=== PATIENT | male | born 1955 | race Caucasian/White ===

== ENCOUNTER → 2016-11-04 | Day surgery (SDC) | payer BC ==
[2016-10-15 08:08] VITALS: Ht 188 cm; Wt 104.5 kg
[~2016-11-04] VITALS: Ht 188 cm; Wt 104.5 kg
[~2016-11-04] MED LIST: 500ML BSS 0.3ML EPI 1:1000PF IRRIG ONE; ACETAMINOPHEN 325 MG TAB PO PRN; AMVISC PLUS 0.8ML SYRINGE INT OCU ONE; ATROPINE SULFATE 0.1 MG/ML 5ML SYR IV PRN; BRIMONIDINE TART 0.2% OP SOLN PER DROP CHARGE ONE; BSS FLUSH ONE; CHOL100010 PO; DOXE10CA PO; ENDOCOAT 0.85ML SYRINGE INT OCU ONE; EpHEDrine SULFATE INJ 50 MG/ML AMP IV PRN; EpINEphrine INJ 1MG/ML AMP 1 MG/ML AMP ONE; GLYCOPYRROLATE INJ 0.2 MG/ML VIAL ONE; LACTATED RINGER'S 1000ML 500 ML IV SCH; LEVO-371 PO; LIDOCAINE 4% OP SOLN DROP CHARGE ONE; LIDOCAINE 4% OP SOLN DROP CHARGE OPR SCH; LIDOCAINE HCL 1% MPF 2 ML VIAL ONE; MIDAZOLAM HCL 1 MG/ML 2ML VIAL ONE; MIX: 3ML BSS AND 1ML EPI(PF) TOP ONE; MOXIFLOXACIN OPH SOLN PER DROP CHARGE ONE; POVIDONE-IODINE OP SOLN 30 ML BTL ONE; PROPARACAINE 0.5% OP SOLN PER DROP CHARGE OPR SCH; PRS5 PO; TOBRAMYCIN/DEXAMETHASONE OPH OINT PER APPLN CHARGE ONE; TRIA1SPR4 NAE; WARF-237 PO; WARF5TAB90 PEG; [UNRECOGNIZED DRUG - CODE] PO
[2016-11-04] MEDS: PHENYLEPHRINE HCL 2.5% OP SOLN PER DROP CHARGE OPR SCH ×2 (09:03→09:08)
[2016-11-04] MEDS: TROPICAMIDE 1% OP SOLN PER DROP CHARGE OPR SCH ×2 (09:04→09:09)
[2016-11-04] MEDS: CYCLOPENTOLATE HCL 1% OP SOLN PER DROP CHARGE OPR SCH ×2 (09:05→09:10)
--- NOTE | 2016-11-04 09:05 | History & Physical Bridge - SC ---
H&P Re-Evaluation Bridge Note: I have examined the patient, reviewed the History & Physical and in the interval since the performance of the History & Physical I have noted the following changes of clinical significance: No changes noted
[2016-11-04] MEDS: KETOROLAC 0.5% OP SOLN PER DROP CHARGE OPR SCH ×2 (09:06→09:11)
[2016-11-04] MEDS: MOXIFLOXACIN OPH SOLN PER DROP CHARGE OPR SCH ×2 (09:07→09:17)
[2016-11-04 09:59] VITALS: TEMP 36.3
--- NOTE | 2016-11-04 09:59 | [facility] Post Operative Brief Note ---
Immediate Operative Summary Operative Date Nov 04, 2016. Pre-Operative Diagnosis Cataract right eye Post-Operative Diagnosis same Procedure(s) Performed Right Cataract Phacoemulsification With Intraocular Lens Implant Surgeon Dr Haynes Aircraft Powertrain Repairer Surgeon(s) 0 Estimated Blood Loss 0 Findings cataract right eye Specimens 0 Complication(s) None Disposition Recovery Room / PACU
--- NOTE | 2016-11-04 09:59 | Discharge Instructions-SurgCtr ---
Discharge Instructions Visit Reason for Visit: Cataract Right Eye Discharge Discharge Diagnosis / Problem: cataract right eye Discharge Goals Goal(s): Improve function Activity Recommendations Activity Limitations: per Instructions/Follow-up section Lifting Limitations: no more than 5 pounds Anesthesia . Post Anesthesia Instructions: If you have had General Anesthesia or IV Sedation: * Do not drive today. * Resume driving when surgeon permits. * Do not make important decisions or sign legal documents today. * Call surgeon for: 1. Temperature elevations greater than 101 degrees F. 2. Uncontrollable pain. 3. Excessive bleeding. 4. Persistent nausea and vomiting. 5. Medication intolerance (nausea, vomiting or rash). * For nausea and vomiting use only clear liquids such as: tea, soda, bouillon until nausea subsides, then gradually increase diet as tolerated. * If you have any concerns or questions, call your surgeon's office. If physician is unavailable and it is an emergency, call 911 or go to the nearest emergency room. . Instructions / Follow-Up Instructions / Follow-Up ACTIVITY RECOMMENDATIONS: * Light activities * You may walk outside, read, watch television. * Mild irritation and blurred vision are common for the first few days, redness around the white part of the eye is common. MEDICATIONS: Resume previous medications unless instructed otherwise by your surgeon. Eye drops (today and tomorrow): Cipro - one drop in operative eye every 2 hours while awake Prednisolone 1% - one drop in operative eye every 2 hours while awake Ketorolac - one drop in operative eye every 2 hours while awake SPECIAL CARE INSTRUCTIONS: * If any problems or concerns, please call Dr. Haynes's office at . * Keep plastic shield taped over eye to sleep at night. * Keep plastic shield taped over eye except to administer eye drops. * Keep plastic shield on until office visit the following day. FOLLOW UP VISIT: Follow-up with Dr. Haynes in the [place] office as scheduled. If not already scheduled, please call the office at . Diet Recommendations Home Diet: resume previous diet Procedures Procedures Performed: Right Cataract Phacoemulsification With Intraocular Lens Implant Pending Studies Studies pending at discharge: no Medical Emergencies . Who to Call and When: Medical Emergencies: If at any time you feel your situation is an emergency, please call 911 immediately. . Non-Emergent Contact Non-Emergency issues call your: Creative Coordinator . . "Provider Documentation" section prepared by Julius Haynes.
--- NOTE | 2016-11-04 10:15 | Anesthesia Progress Nt - [facility] ---
Anesthesia Post Op Note Date & Time Nov 04, 2016 at 10:15 Vital Signs Pain Intensity: 0 Vital Signs Past 12 Hours Date Time Temp Pulse Resp B/P Pulse Ox O2 Delivery O2 Flow Rate FiO2 11/04/16 09:59 36.3 45 16 138/90 97 Room Air 11/04/16 08:55 36.9 45 20 138/90 95 Room Air Notes Mental Status: alert / awake / arousable, participated in evaluation Pt Amnestic to Procedure: Yes Nausea / Vomiting: adequately controlled Pain: adequately controlled Airway Patency, RR, SpO2: stable & adequate BP & HR: stable & adequate Hydration State: stable & adequate Anesthetic Complications: no major complications apparent
--- NOTE | 2016-11-04 10:17 | OPERATIVE REPORT ---
DATE OF OPERATION: 11/04/2016 PREOPERATIVE DIAGNOSIS: Cataract, right eye. POSTOPERATIVE DIAGNOSIS: Cataract, right eye. PROCEDURE: Phacoemulsification cataract extraction with intraocular lens placement, right eye. SURGEON: Dr. Haynes. COMPLICATIONS: None. ESTIMATED BLOOD LOSS: None. ANESTHESIA: Topical with sedation. OPERATION AND FINDINGS: After informed consent was obtained in the holding area the patient was wheeled back to the Operating Room where cardiac monitoring leads and oxygen by nasal cannula was administered by Anesthesia. Gentle IV sedation was given, and the patient's right eye was prepped and draped in usual sterile fashion. A wire lid speculum was placed into the right eye and the operating microscope was swung into position. Using 0.12 forceps and a Supersharp blade a paracentesis port was made 3 o'clock hours away from the 9 o'clock position of patient's right eye. 1% non-preserved Lidocaine was then injected into the anterior chamber for anesthesia. A 2.2 mm keratotome blade was then used to make a shelved clear corneal incision at the 9 o'clock position of his right eye. Amvisc was injected into the anterior chamber and a cystotome and Utrata forceps were used to perform a curvilinear capsulorrhexis. BSS on a hydrodissection cannula was used to hydrodissect the lens nucleus away from the capsular bag. The phacoemulsification handpiece was then used in a stop and chop fashion to remove the lens nucleus. The irrigation and aspiration handpiece was then used to remove the residual cortical material. Amvisc was injected into the capsular bag and anterior chamber and a Bausch \T\ Lomb MX60, 21.0 Diopter intraocular lens was injected into the capsular bag. Irrigation and aspiration handpiece was used to remove the residual viscoelastic material. The wounds were hydrated and noted to be watertight. The wire lid speculum was removed from the eye. Vigamox, Brimonidine, and TobraDex ointment were placed on the eye and it was shielded. It should be noted that at the beginning of the case, a mixture of 1 mL of nonpreserved epinephrine and 3 mL of BSS was injected into the eye to aid with pupillary dilation in this Flomax patient. EndoCoat was also used during the case to protect the cornea endothelium. DISPOSITION: The patient tolerated the procedure well and was wheeled to the post anesthesia care unit in stable condition. I attest to the content of the Intraoperative Record and any orders documented therein. Any exceptions are noted below. I attest to the content of the Intraoperative Record and any orders documented therein. Any exceptio ns are noted below.
[2016-11-04 10:20] VITALS: BP 132/86; PULSE 58; O2SAT 97
== END | disposition home or self-care (01) ==
LOC: X.SURG 08:32
PROVIDERS: ATTEND Ophthalmology
DX: H25.11 Age-related nuclear cataract, right eye (principal); N40.0 Benign prostatic hyperplasia without lower urinary tract symptoms; R73.02 Impaired glucose tolerance (oral)

== ENCOUNTER → 2018-01-26 | Outpatient (CLI) | payer OTHER ==
[~2018-01-26] MED LIST changes: -500ML BSS 0.3ML EPI 1:1000PF IRRIG ONE; -ACETAMINOPHEN 325 MG TAB PO PRN; -AMVISC PLUS 0.8ML SYRINGE INT OCU ONE; -ATROPINE SULFATE 0.1 MG/ML 5ML SYR IV PRN; -BRIMONIDINE TART 0.2% OP SOLN PER DROP CHARGE ONE; -BSS FLUSH ONE; +DOXA1TAB PO; -ENDOCOAT 0.85ML SYRINGE INT OCU ONE; -EpHEDrine SULFATE INJ 50 MG/ML AMP IV PRN; -EpINEphrine INJ 1MG/ML AMP 1 MG/ML AMP ONE; -GLYCOPYRROLATE INJ 0.2 MG/ML VIAL ONE; -LACTATED RINGER'S 1000ML 500 ML IV SCH; -LEVO-371 PO; +LEVO5TAB2 PO; -LIDOCAINE 4% OP SOLN DROP CHARGE ONE; -LIDOCAINE 4% OP SOLN DROP CHARGE OPR SCH; -LIDOCAINE HCL 1% MPF 2 ML VIAL ONE; -MIDAZOLAM HCL 1 MG/ML 2ML VIAL ONE; -MIX: 3ML BSS AND 1ML EPI(PF) TOP ONE; -MOXIFLOXACIN OPH SOLN PER DROP CHARGE ONE; -POVIDONE-IODINE OP SOLN 30 ML BTL ONE; -PROPARACAINE 0.5% OP SOLN PER DROP CHARGE OPR SCH; -TOBRAMYCIN/DEXAMETHASONE OPH OINT PER APPLN CHARGE ONE; -[UNRECOGNIZED DRUG - CODE] PO
--- NOTE | 2018-01-26 12:05 | DIAGNOSTIC IMAGING REPORT ---
LEFT LOWER EXTREMITY VENOUS DOPPLER CLINICAL HISTORY: Left lower extremity pain. History of deep venous thrombus. COMPARISON STUDY: Bilateral lower extremity venous Doppler March 03, 2012. TECHNIQUE: Sonography of the deep venous system of the left lower extremity was performed. Compression and augmentation were evaluated. FINDINGS: Note is made of nonocclusive deep venous thrombus within the left superficial femoral and popliteal veins. Thrombus was shown within these vessels on exam of March 03, 2012. These vessels are not expanded. IMPRESSION: Nonocclusive deep venous thrombus within the left superficial femoral and popliteal veins. Although age indeterminate, this thrombus is likely chronic when correlating with exam of March 03, 2012. Electronically signed by: Ang Torres M.D. 01/26/2018 12:04 PM Dictated Date/Time: 01/26/2018 12:00 PM
== END | disposition home or self-care (01) ==
LOC: C.ULTR 10:39
PROVIDERS: ATTEND Family Medicine
DX: M79.605 Pain in left leg (principal); I82.4Y2 Acute embolism and thrombosis of unspecified deep veins of left proximal lower extremity

== ENCOUNTER 2022-01-28 17:50 | Observation (INO) ==
--- NOTE | 2022-01-28 18:39 | Emergency Department Note ---
History of Present Illness General Chief complaint: Referred by Doctor Stated complaint: POSSIBLE NERVE DAMAGE, HEMOTOMA, REF'D BY Time Seen by Provider: 01/28/22 18:17 Source: patient Mode of arrival: ambulatory Limitations: no limitations History of Present Illness Maximum Pain Intensity: 7 This patient is 66-year-old male who comes in after concern for possible postop complication. He had surgery done this past week at [facility] by Dr. Swann. He tells me on Friday he had 3 discs and wire cage placed and then on Friday he had 2 laminectomies a cyst removed and some decompression for spinal stenosis he was discharged this past Friday. He said starting last night he felt like he could not urinate and he was dribbling overnight which is new for him. He says he typically does retain urine due to BPH and he thinks he chronically has 4 to 500 cc. When he voids he says is usually 2 or 300. He does take finasteride. He has had temperatures while he was in the hospital up to 38. He felt warm a couple times last 48 hours but has not taken his temperature. No new numbness or weakness in the legs he does have some mild fluid retention no chest pain or shortness of breath. No fall or trauma. No dysuria. He is on a multiple different pain medications he had some constipation since surgery he has had no numbness in the buttocks. Home Medications Medication Instructions Recorded Confirmed Type doxazosin 2 mg tablet 2 mg PO QAM 04/15/20 01/28/22 History doxepin 10 mg capsule 10 mg PO HS 04/15/20 01/28/22 History finasteride 5 mg tablet 5 mg PO QAM 04/15/20 01/28/22 History fluticasone furoate 27.5 1 spray INTRANASAL DAILY PRN 04/15/20 01/28/22 History mcg/actuation nasal spray,suspension (Flonase Sensimist) sodium chloride 0.65 % nasal spray 2 spray INTRANASAL DIRECTED PRN 04/15/20 01/28/22 History aerosol (Saline Nasal) acetaminophen 500 mg tablet 1,000 mg PO Q8H PRN 01/28/22 01/28/22 History docusate sodium 100 mg tablet 100 mg PO BID 01/28/22 01/28/22 History methocarbamol 750 mg tablet 750 mg PO Q8H PRN 01/28/22 01/28/22 History morphine 15 mg tablet,extended 15 mg PO Q12H PRN 01/28/22 01/28/22 History release oxycodone 10 mg tablet 10 mg PO Q4H PRN 01/28/22 01/28/22 History Allergies Allergy/AdvReac Type Severity Reaction Status Date / Time Penicillins Allergy Severe Anaphylaxis Verified 01/28/22 20:00 grass pollen-perennial rye, Allergy Mild Sneezing Verified 01/28/22 20:00 standar mold Allergy Mild Sneezing Verified 01/28/22 20:00 pollen extracts Allergy Mild Sneezing Verified 01/28/22 20:00 scallops AdvReac Diarrhea Unverified 01/28/22 20:00 Past Med/Surg History Medical History Asthma mild and well controlled BCC (basal cell carcinoma) BPH (benign prostatic hyperplasia) BPH with obstruction/lower urinary tract symptoms Prediabetes well controlled & monitored Seasonal allergies Surgical History H/O right knee surgery open H/O wisdom tooth extraction History of cardiac cath no stents (~2009) History of cataract surgery bilateral History of colonoscopy History of detached retina repair x2 (left eye) S/P Mohs surgery for basal cell carcinoma Family History Brother Diabetes Pancreatic cancer Sister Diabetes Nephrolithiasis Mother Hypertension Lung cancer Father Heart disease Other No family history of adverse response to anesthesia Social History Smoking Status: Never smoker Second Hand Exposure: No; Hx Alcohol Use: Yes Alcohol type: wine Hx Substance Use: No Preferred Language: Kiswahili Communication Ability: Effective Arch Pad Cementer Required: No Beliefs That Will Affect Care: None marital status: Current Living Situation: Spouse Current Living Situation Comment: + son&daughter current occupational status: employed Feels Safe at Home: Yes Assistive Devices: Glasses and Hearing Aid - Bilateral Review of Systems A total of 10 systems reviewed and were otherwise negative Physical Exam Vital Signs Vital Signs - 24 hr 01/28/22 17:59 01/28/22 18:52 01/28/22 21:40 Temperature 36.9 C Temperature Source Oral Pulse Rate 65 Pulse Rate [Right Finger] Pulse Rhythm [Right Finger] Pulse Strength [Right Finger] Respiratory Rate 18 18 Respiratory Effort / Characteristics Non-Labored Spontaneous Respiratory Depth Normal Normal Respiratory Pattern Regular Blood Pressure 123/67 Blood Pressure [Left Arm] 145/75 H Blood Pressure Mean 85 Blood Pressure Mean [Left Arm] 98 Blood Pressure Position Sitting Blood Pressure Position [Left Arm] Lying Pulse Oximetry 97 97 96 Oxygen Delivery Method Room Air Room Air Room Air Sepsis Recent Fever Within 48 Hours No Sepsis New/Unexplained Change in Mental Status N/A Sepsis Action Taken by Nursing No Action Required 01/28/22 23:08 Temperature Temperature Source Pulse Rate Pulse Rate [Right Finger] 85 Pulse Rhythm [Right Finger] Regular Pulse Strength [Right Finger] Normal Respiratory Rate 18 Respiratory Effort / Characteristics Respiratory Depth Normal Respiratory Pattern Blood Pressure Blood Pressure [Left Arm] 151/86 H Blood Pressure Mean Blood Pressure Mean [Left Arm] 107 Blood Pressure Position Blood Pressure Position [Left Arm] Lying Pulse Oximetry 94 Oxygen Delivery Method Room Air Sepsis Recent Fever Within 48 Hours Sepsis New/Unexplained Change in Mental Status Sepsis Action Taken by Nursing General: Well developed well nourished in no acute distress, breathing comfortably on room air. Normal speech HEENT: Normal cephalic atraumatic. Pupils are equal round and reactive to light. Extraocular movements are intact. Oropharynx is pink with moist mucous membranes. No swelling of the mouth lips or tongue. Neck: Supple with a midline trachea. No meningeal signs or stiffness, no JVD or bruits. No Stridor. Chest: Clear to auscultation bilaterally. No wheezes or rhonchi. No increased work of breathing. Heart: Regular rate and rhythm without murmurs or gallops. Abdomen: Soft nontender, nondistended without rebound guarding or rigidity. His bladder does feel distended. His dressing is intact from her anterior incision there is no redness around it Extremities: No cyanosis clubbing. Trace bilateral lower extremity edema. No calf tenderness or assymetry Spine/Back. Non tender to palpation. No CVA tenderness. The posterior dressing is intact without any redness. There is no numbness in this area or buttocks. Skin: Good turgor without rashes. Neurologic exam: Cranial nerves two through 12 are intact. Motor and sensation are intact and symmetrical throughout. He does have 2+ Achilles and patellar reflexes bilaterally Course Administered Medications Sodium Chloride (Nss 1000ml) 1,000 mls @ 125 mls/hr IV .Q8H [facility] Stop: 02/28/22 00:44 Last Admin: 01/29/22 00:40 Dose: 125 mls/hr Documented by: [id number] Discontinued Medications Gadobutrol (Gadobutrol 65ml Vial) 10 ml IV ONCE ONE Stop: 01/28/22 21:18 Last Admin: 01/28/22 21:18 Dose: 10 ml Documented by: [id number] Medical Decision Making Differential Diagnosis Urinary retention, postop complication, infection, BPH, UTI, electrolyte or metabolic abnormality Medical Records Attestation: I reviewed the patient's medical records. Home Medications Current Medication List: was personally reviewed by me Laboratory Data Attestation: I reviewed the patient's lab results. Result diagrams: 01/28/22 18:40 01/28/22 18:40 Lab Results 01/28/22 01/28/22 01/28/22 Range/Units 18:40 18:40 18:40 WBC 13.02 H (4.8-10.8) K/uL RBC 3.79 L (4.7-6.1) M/uL Hgb 11.9 L (14.0-18.0) g/dL Hct 33.9 L (42-52) % MCV 89.4 (80-100) fL MCH 31.4 (25-34) pg MCHC 35.1 (32-36) g/dL RDW Std Deviation 41.5 (36.4-46.3) fL RDW Coeff of Tri 12.8 (11.5-14.5) % Plt Count 279 (130-400) K/uL MPV 9.8 (7.4-10.4) fL Immature Gran % (Auto) 0.5 % Neut % (Auto) 84.0 % Lymph % (Auto) 10.8 % [place] % (Auto) 3.9 % Eos % (Auto) 0.7 % Baso % (Auto) 0.1 % Neut # (Auto) 10.95 H (1.4-6.5) K/uL Lymph # (Auto) 1.40 (1.2-3.4) K/uL [place] # (Auto) 0.51 (0.11-0.59) K/uL Eos # (Auto) 0.09 (0-0.5) K/uL Baso # (Auto) 0.01 (0-0.2) K/uL Immature Gran # (Auto) 0.06 H (0.00-0.02) K/uL PT 10.9 (9.0-12.0) Seconds INR 1.0 (0.9-1.1) APTT 27.1 (21.0-31.0) Seconds PTT Ratio 1.0 Sodium 128 L (136-145) mmol/L Potassium 4.0 (3.5-5.1) mmol/L Chloride 92 L (98-107) mmol/L Carbon Dioxide 26 (21-32) mmol/L Anion Gap 10 (3-11) BUN 29 H (6-23) mg/dl Creatinine 2.16 H (0.6-1.4) mg/dl Est Cr Clr Drug Dosing Not Reportable Est GFR ( Amer) 35.2 ml/min Est GFR (Non-Af Amer) 30.3 ml/min BUN/Creatinine Ratio 13.4 (10-20) Glucose 146 H (70-99(Fasting)) mg/dl Calcium 8.8 (8.5-10.1) mg/dl Total Bilirubin 1.2 H (0.2-1.0) mg/dl AST 47 H (13-39) U/L ALT 39 (7-52) U/L Alkaline Phosphatase 89 (34-104) U/L Total Protein 6.1 (6.0-8.3) gm/dl Albumin 3.4 (3.4-5.0) gm/dl Globulin 2.7 (2.5-4.0) gm/dl Albumin/Globulin Ratio 1.3 (0.9-2) Urine Color Urine Appearance (Clear) Urine pH (4.5-7.5) Ur Specific [place] (1.000-1.030) Urine Protein (Negative) Urine Glucose (UA) (Negative) Urine Ketones (Negative) Urine Blood (Negative) Urine Nitrite (Negative) Urine Bilirubin (Negative) Urine Urobilinogen (Negative) Ur Leukocyte Esterase (Negative) Urine WBC (Auto) (0-5) /hpf Urine RBC (Auto) (0-4) /hpf U Hyaline Cast (Auto) (0-5) /lpf U Epithel Cells (Auto) (0-5) /lpf Urine Bacteria (Auto) (Negative) 01/28/22 Range/Units 19:50 WBC (4.8-10.8) K/uL RBC (4.7-6.1) M/uL Hgb (14.0-18.0) g/dL Hct (42-52) % MCV (80-100) fL MCH (25-34) pg MCHC (32-36) g/dL RDW Std Deviation (36.4-46.3) fL RDW Coeff of Tri (11.5-14.5) % Plt Count (130-400) K/uL MPV (7.4-10.4) fL Immature Gran % (Auto) % Neut % (Auto) % Lymph % (Auto) % [place] % (Auto) % Eos % (Auto) % Baso % (Auto) % Neut # (Auto) (1.4-6.5) K/uL Lymph # (Auto) (1.2-3.4) K/uL [place] # (Auto) (0.11-0.59) K/uL Eos # (Auto) (0-0.5) K/uL Baso # (Auto) (0-0.2) K/uL Immature Gran # (Auto) (0.00-0.02) K/uL PT (9.0-12.0) Seconds INR (0.9-1.1) APTT (21.0-31.0) Seconds PTT Ratio Sodium (136-145) mmol/L Potassium (3.5-5.1) mmol/L Chloride (98-107) mmol/L Carbon Dioxide (21-32) mmol/L Anion Gap (3-11) BUN (6-23) mg/dl Creatinine (0.6-1.4) mg/dl Est Cr Clr Drug Dosing Est GFR ( Amer) ml/min Est GFR (Non-Af Amer) ml/min BUN/Creatinine Ratio (10-20) Glucose (70-99(Fasting)) mg/dl Calcium (8.5-10.1) mg/dl Total Bilirubin (0.2-1.0) mg/dl AST (13-39) U/L ALT (7-52) U/L Alkaline Phosphatase (34-104) U/L Total Protein (6.0-8.3) gm/dl Albumin (3.4-5.0) gm/dl Globulin (2.5-4.0) gm/dl Albumin/Globulin Ratio (0.9-2) Urine Color Yellow Urine Appearance Cloudy A (Clear) Urine pH 5.5 (4.5-7.5) Ur Specific [place] 1.007 (1.000-1.030) Urine Protein Negative (Negative) Urine Glucose (UA) Negative (Negative) Urine Ketones Negative (Negative) Urine Blood Negative (Negative) Urine Nitrite Negative (Negative) Urine Bilirubin Negative (Negative) Urine Urobilinogen Negative (Negative) Ur Leukocyte Esterase Negative (Negative) Urine WBC (Auto) 1-5 (0-5) /hpf Urine RBC (Auto) 0-4 (0-4) /hpf U Hyaline Cast (Auto) 0 (0-5) /lpf U Epithel Cells (Auto) 0-5 (0-5) /lpf Urine Bacteria (Auto) Negative (Negative) Imaging Data Radiologist's Impression: MRI of the low lumbar spine with and without. Please refer to stat rad report. Orthopedic hardware L3-S1 with nondiagnostic evaluation of L3-4 and L4-5 due to metal artifact. No disc extrusion, spinal stenosis or abnormal enhancement in the visual levels. No abnormal signal of the conus medullaris which terminates normally. No abnormal enhancement MDM Narrative This patient comes in as described above. He was placed on a teletypesetter monitor in room C2 he has been having urinary retention this may be related to his BPH he does not have any other neurologic deficits. It could also potentially be related to his recent spinal surgery. I did call and talk to the on-call provider at the [facility] who was Zainab Padilla who is a PA and we discussed the plan I did order an MRI with and without contrast and well as well as other labs. He was reassessed. Fortunately his MRI looks unremarkable. I did further discussed this findings with Carol Ann Padilla again. His bladder scan however had greater than 2000 cc and we placed a Lawson catheter. His creatinine was mildly elevated as was his BUN is likely postobstructive. His sodium is also low at 128. The nurse did tell me that while he was here he passed about 5 L of urine. I am concerned about fluid shifts and given this I do think he would benefit from being observed in the hospital for electrolyte or metabolic abnormalities. I have consulted Dr. Jean Baptiste to see him in the ER Impression & Plan Acute urinary retention, BPH with obstruction/lower urinary tract symptoms, Status post spinal surgery, Lab test negative for COVID-19 virus, Acute renal insufficiency Discharge Plan Visit Data Chief Complaint: Referred by Doctor Stated Complaint: POSSIBLE NERVE DAMAGE, HEMOTOMA, REF'D BY ED Provider: Stewart Olivares Discharge Problem: Acute urinary retention, BPH with obstruction/lower urinary tract symptoms, Status post spinal surgery, Lab test negative for COVID-19 virus, Acute renal insufficiency Patient Disposition: Admitted As Inpatient Discharge Instructions Interventions: ED Discharge Assessment Last Done: 01/29/22 03:01
[2022-01-28 18:54] LABS: Hematocrit (blood only) 33.9 % (42-52); Hemoglobin 11.9 g/dL (14.0-18.0); Mean Corpuscular Hemoglobin 31.4 pg (25-34); Mean Corpuscular Hgb Conc 35.1 g/dL (32-36); Mean Corpuscular Volume 89.4 fL (80-100); Mean Platelet Volume 9.8 fL (7.4-10.4); Platelet Count 279 K/uL (130-400); RDW Coefficient of Variation 12.8 % (11.5-14.5); RDW Standard Deviation 41.5 fL (36.4-46.3); Red Blood Count 3.79 M/uL (4.7-6.1); White Blood Count 13.02 K/uL (4.8-10.8)
[2022-01-28 19:05] LABS: Partial Thromboplastin Time 27.1 Seconds (21.0-31.0); Prothrombin Time 10.9 Seconds (9.0-12.0)
[2022-01-28 19:18] LABS: Alanine Aminotransferase 39 U/L (7-52); Albumin Globulin Ratio 1.3 (0.9-2); Albumin Level 3.4 gm/dl (3.4-5.0); Alkaline Phosphatase 89 U/L (34-104); Anion Gap 10 (3-11); Aspartate Aminotransferase 47 U/L (13-39); BUN Creatinine Ratio 13.4 (10-20); Bilirubin,Total 1.2 mg/dl (0.2-1.0); Blood Urea Nitrogen 29 mg/dl (6-23); Calcium 8.8 mg/dl (8.5-10.1); Carbon Dioxide 26 mmol/L (21-32); Chloride 92 mmol/L (98-107); Est GFR (African American) 35.2 ml/min; Est GFR (Non-African American) 30.3 ml/min; Globulin 2.7 gm/dl (2.5-4.0); Glucose 146 mg/dl (70-99(Fasting)); Sodium 128 mmol/L (136-145); Total Protein 6.1 gm/dl (6.0-8.3)
[2022-01-28 19:50] LABS: Basophils # (auto) 0.01 K/uL (0-0.2); Basophils % (auto) 0.1 %; Eosinophils # (auto) 0.09 K/uL (0-0.5); Eosinophils % (auto) 0.7 %; Immature Granulocytes # (auto) 0.06 K/uL (0.00-0.02); Immature Granulocytes % (auto) 0.5 %; Lymphocytes % (auto) 10.8 %; Monocytes # (auto) 0.51 K/uL (0.11-0.59); Monocytes % (auto) 3.9 %; Neutrophils # (auto) 10.95 K/uL (1.4-6.5)
[2022-01-28 20:25] LABS: Appearance Urine Cloudy (Clear); Bacteria Urine Automated Negative (Negative); Bilirubin Urine Negative (Negative); Blood Urine Negative (Negative); Cast Urine Automated 0 /lpf (0-5); Color Urine Yellow; Epithelial Cell Urine Auto 0-5 /lpf (0-5); Glucose Urine UA Negative (Negative); Ketones Urine Negative (Negative); Leukocyte Esterase Urine Negative (Negative); Nitrite Urine Negative (Negative); Protein Urine Negative (Negative); RBC Urine Automated 0-4 /hpf (0-4); Specific Gravity Urine 1.007 (1.000-1.030); Urobilinogen Urine Negative (Negative); pH Urine 5.5 (4.5-7.5)
[2022-01-28] MEDS ORDERED: GADOBUTROL 65ML VIAL IV ONE (21:17)
--- NOTE | 2022-01-28 23:27 | History & Physical Report ---
Date of Service January 28, 2022 Assessment & Plan (1) Acute urinary retention: Plan: Patient is a 66 yo male with hx of BPH and recent spinal surgery admitted for acute urinary retention. Acute urinary retention - Likely secondary to hx of BPH and constipation - Xie placed in ED with about 6 L of urine output - UA unremarkable - Cr elevated at 2.16 -- unknown baseline but suspect postrenal RADHA secondary to retention - IVF NSS at 125 cc/hr - Monitor kidney function and electrolyte stability - Recheck BMP, mag, and CBC in AM BPH - Continue home doxazosin and finasteride S/p spinal surgery - Will continue pain medication regimen s/p surgery with Tylenol 1g q8h, robaxin 750mg q8h, oxycontin 15mg q12h, and oxycodone 10mg q4h prn - Encouraged patient to f/u with PCP and surgeon as scheduled Constipation - Secondary to pain medication regimen s/p spinal surgery - Continue bowel regimen with colace, miralax, and milk of mag - Fleet enema if needed FENGI: Regular diet, IVF NSS at 125 cc/hr Dispo: admit to [facility] Code status: FULL CODE (2) BPH with obstruction/lower urinary tract symptoms: (3) Status post spinal surgery: (4) Lab test negative for COVID-19 virus: (5) Constipation: History of Present Illness Chief Complaint: urinary retention Primary Care Provider: Kerwin Mario MD Waldemar is a 66 yo male with PMHx of BPH. Patient had 2 spine surgeries at [facility] last week (01/21 and 01/23). He was discharged and returned home to [place] 2 days ago. Due to hx of BPH, he reports chronically retaining about 400 to 500cc urine; usually voiding 200 to 300 cc per void. However, starting last night, patient began to have increased difficulty urinating and was only "dribbling" overnight which is new for him. In addition to the urinary retention, patient has had constipation x3 days. He did have a "forced" bowel movement this morning after using 3 fleet enemas within past 24 hours at home. While in the ED, patient had a xie placed which drained almost 6 liters of urine. UA with cloudy urine but otherwise unremarkable. Cr 2.16 (unknown current baseline, last labs 8 years ago and at that time Cr baseline 1.0). Patient denies vomiting, new numbness or tingling, CP, or SOB. He will be admitted for IVF hydration as well as monitoring of fluid shift and electrolyte stability. Allergies Allergy/AdvReac Type Severity Reaction Status Date / Time Penicillins Allergy Severe Anaphylaxis Verified 01/28/22 20:00 grass pollen-perennial rye, Allergy Mild Sneezing Verified 01/28/22 20:00 standar mold Allergy Mild Sneezing Verified 01/28/22 20:00 pollen extracts Allergy Mild Sneezing Verified 01/28/22 20:00 scallops AdvReac Diarrhea Unverified 01/28/22 20:00 Home Medications Medication Instructions Recorded Confirmed Type doxazosin 2 mg tablet 2 mg PO QAM 04/15/20 01/28/22 History doxepin 10 mg capsule 10 mg PO HS 04/15/20 01/28/22 History finasteride 5 mg tablet 5 mg PO QAM 04/15/20 01/28/22 History fluticasone furoate 27.5 1 spray INTRANASAL DAILY PRN 04/15/20 01/28/22 History mcg/actuation nasal spray,suspension (Flonase Sensimist) sodium chloride 0.65 % nasal spray 2 spray INTRANASAL DIRECTED PRN 04/15/20 01/28/22 History aerosol (Saline Nasal) acetaminophen 500 mg tablet 1,000 mg PO Q8H PRN 01/28/22 01/28/22 History docusate sodium 100 mg tablet 100 mg PO BID 01/28/22 01/28/22 History methocarbamol 750 mg tablet 750 mg PO Q8H PRN 01/28/22 01/28/22 History morphine 15 mg tablet,extended 15 mg PO Q12H PRN 01/28/22 01/28/22 History release oxycodone 10 mg tablet 10 mg PO Q4H PRN 01/28/22 01/28/22 History Past Med/Surg History Medical History Asthma mild and well controlled BCC (basal cell carcinoma) BPH (benign prostatic hyperplasia) BPH with obstruction/lower urinary tract symptoms Prediabetes well controlled & monitored Seasonal allergies Surgical History H/O right knee surgery open H/O wisdom tooth extraction History of cardiac cath no stents (~2009) History of cataract surgery bilateral History of colonoscopy History of detached retina repair x2 (left eye) S/P Mohs surgery for basal cell carcinoma Family History Brother Diabetes Pancreatic cancer Sister Diabetes Nephrolithiasis Mother Hypertension Lung cancer Father Heart disease Other No family history of adverse response to anesthesia Social History Smoking Status: Never smoker Second Hand Exposure: No; Do You Dip or Chew Tobacco: No; Hx Alcohol Use: No Hx Substance Use: No Preferred Language: Faroese Communication Ability: Effective Computer Drafter Required: No Beliefs That Will Affect Care: None marital status: Current Living Situation: Family Current Living Situation Comment: + son&daughter current occupational status: employed Other Information That Helps Us Care for You: No Feels Safe at Home: Yes Safety Concerns: Feels Safe At This Time Assistive Devices: Glasses and Walker Review of Systems Review of Systems: See HPI Physical Exam Physical Exam: GENERAL: No acute distress. Well developed and well nourished. Vital signs reviewed as above. EYES: PERRLA. EOMI. Anicteric sclerae. HENT: Moist mucous membranes. No pharyngeal erythema or exudates. RESPIRATORY: On auscultation of anterior and lateral lung garner, lungs clear to auscultation bilaterally without wheezing, rales, or rhonchi. CARDIOVASCULAR: Regular rate and rhythm. No murmurs. ABDOMEN: Soft. Non-tender. Dressing in place left of midline that is C/D/I with no surrounding erythema. Ecchymosis to suprapubic region. Normal bowel sounds. EXTREMITIES: No edema. Non-tender. SKIN: Warm, dry. NEUROLOGIC: No focal neurological deficits. CN II-XII grossly intact. Normal sensation throughout BUE and BLE. No saddle anesthesia. PSYCHIATRIC: Cooperative. Appropriate mood and affect. Results & Data Results & Data ([facility]) Vital Signs (Past 12 Hours) Vital Signs Temp Pulse Pulse Resp BP BP Pulse Ox 01/28/22 23:08 85 18 151/86 H 94 01/28/22 21:40 18 145/75 H 96 01/28/22 18:52 97 01/28/22 17:59 36.9 C 65 18 123/67 97 Laboratory Results 01/29/22 01/28/22 01/28/22 Range/Units 00:20 19:50 18:40 WBC (4.8-10.8) K/uL RBC (4.7-6.1) M/uL Hgb (14.0-18.0) g/dL Hct (42-52) % MCV (80-100) fL MCH (25-34) pg MCHC (32-36) g/dL RDW Std Deviation (36.4-46.3) fL RDW Coeff of Tri (11.5-14.5) % Plt Count (130-400) K/uL MPV (7.4-10.4) fL Immature Gran % (Auto) % Neut % (Auto) % Lymph % (Auto) % Harmon % (Auto) % Eos % (Auto) % Baso % (Auto) % Neut # (Auto) (1.4-6.5) K/uL Lymph # (Auto) (1.2-3.4) K/uL Harmon # (Auto) (0.11-0.59) K/uL Eos # (Auto) (0-0.5) K/uL Baso # (Auto) (0-0.2) K/uL Immature Gran # (Auto) (0.00-0.02) K/uL PT (9.0-12.0) Seconds INR (0.9-1.1) APTT (21.0-31.0) Seconds PTT Ratio Sodium 128 L (136-145) mmol/L Potassium 4.0 (3.5-5.1) mmol/L Chloride 92 L (98-107) mmol/L Carbon Dioxide 26 (21-32) mmol/L Anion Gap 10 (3-11) BUN 29 H (6-23) mg/dl Creatinine 2.16 H (0.6-1.4) mg/dl Est Cr Clr Drug Dosing Not Reportable Est GFR ( Amer) 35.2 ml/min Est GFR (Non-Af Amer) 30.3 ml/min BUN/Creatinine Ratio 13.4 (10-20) Glucose 146 H (70-99(Fasting)) mg/dl Calcium 8.8 (8.5-10.1) mg/dl Total Bilirubin 1.2 H (0.2-1.0) mg/dl AST 47 H (13-39) U/L ALT 39 (7-52) U/L Alkaline Phosphatase 89 (34-104) U/L Total Protein 6.1 (6.0-8.3) gm/dl Albumin 3.4 (3.4-5.0) gm/dl Globulin 2.7 (2.5-4.0) gm/dl Albumin/Globulin Ratio 1.3 (0.9-2) Urine Color Yellow Urine Appearance Cloudy A (Clear) Urine pH 5.5 (4.5-7.5) Ur Specific Paulding 1.007 (1.000-1.030) Urine Protein Negative (Negative) Urine Glucose (UA) Negative (Negative) Urine Ketones Negative (Negative) Urine Blood Negative (Negative) Urine Nitrite Negative (Negative) Urine Bilirubin Negative (Negative) Urine Urobilinogen Negative (Negative) Ur Leukocyte Esterase Negative (Negative) Urine WBC (Auto) 1-5 (0-5) /hpf Urine RBC (Auto) 0-4 (0-4) /hpf U Hyaline Cast (Auto) 0 (0-5) /lpf U Epithel Cells (Auto) 0-5 (0-5) /lpf Urine Bacteria (Auto) Negative (Negative) SARS-CoV-2, RNA, NAAT NEGATIVE (NEGATIVE) 01/28/22 01/28/22 Range/Units 18:40 18:40 WBC 13.02 H (4.8-10.8) K/uL RBC 3.79 L (4.7-6.1) M/uL Hgb 11.9 L (14.0-18.0) g/dL Hct 33.9 L (42-52) % MCV 89.4 (80-100) fL MCH 31.4 (25-34) pg MCHC 35.1 (32-36) g/dL RDW Std Deviation 41.5 (36.4-46.3) fL RDW Coeff of Tri 12.8 (11.5-14.5) % Plt Count 279 (130-400) K/uL MPV 9.8 (7.4-10.4) fL Immature Gran % (Auto) 0.5 % Neut % (Auto) 84.0 % Lymph % (Auto) 10.8 % Harmon % (Auto) 3.9 % Eos % (Auto) 0.7 % Baso % (Auto) 0.1 % Neut # (Auto) 10.95 H (1.4-6.5) K/uL Lymph # (Auto) 1.40 (1.2-3.4) K/uL Harmon # (Auto) 0.51 (0.11-0.59) K/uL Eos # (Auto) 0.09 (0-0.5) K/uL Baso # (Auto) 0.01 (0-0.2) K/uL Immature Gran # (Auto) 0.06 H (0.00-0.02) K/uL PT 10.9 (9.0-12.0) Seconds INR 1.0 (0.9-1.1) APTT 27.1 (21.0-31.0) Seconds PTT Ratio 1.0 Sodium (136-145) mmol/L Potassium (3.5-5.1) mmol/L Chloride (98-107) mmol/L Carbon Dioxide (21-32) mmol/L Anion Gap (3-11) BUN (6-23) mg/dl Creatinine (0.6-1.4) mg/dl Est Cr Clr Drug Dosing Est GFR ( Amer) ml/min Est GFR (Non-Af Amer) ml/min BUN/Creatinine Ratio (10-20) Glucose (70-99(Fasting)) mg/dl Calcium (8.5-10.1) mg/dl Total Bilirubin (0.2-1.0) mg/dl AST (13-39) U/L ALT (7-52) U/L Alkaline Phosphatase (34-104) U/L Total Protein (6.0-8.3) gm/dl Albumin (3.4-5.0) gm/dl Globulin (2.5-4.0) gm/dl Albumin/Globulin Ratio (0.9-2) Urine Color Urine Appearance (Clear) Urine pH (4.5-7.5) Ur Specific Paulding (1.000-1.030) Urine Protein (Negative) Urine Glucose (UA) (Negative) Urine Ketones (Negative) Urine Blood (Negative) Urine Nitrite (Negative) Urine Bilirubin (Negative) Urine Urobilinogen (Negative) Ur Leukocyte Esterase (Negative) Urine WBC (Auto) (0-5) /hpf Urine RBC (Auto) (0-4) /hpf U Hyaline Cast (Auto) (0-5) /lpf U Epithel Cells (Auto) (0-5) /lpf Urine Bacteria (Auto) (Negative) SARS-CoV-2, RNA, NAAT (NEGATIVE) Diagnostic Findings [facility] Patient: WALDEMAR RAMIREZ (Male) : 51 Status: ER Date: 01/28/22 21:35 Room #: History: difficulty urinating recent lumbar surgery Slices: [phone] Priors: Tech: Anjali Griffith @ [id number] Exams: MRI L SPINE Contrast: Accession Numbers: [id number] Referring Physician: KERWIN MARIO Preliminary Findings Only See Final Report For Complete Findings MRI L SPINE : Compared with MRI lumbar spine 03/09/21. Orthopedic hardware L3-S1, with nondiagnostic evaluation L3-4 and L4-5, due to m etal artifact. No disc extrusion, spinal stenosis or abnormal enhancement in the visualized levels. No abnormal signal of the conus medullaris which terminates normally. No abnormal enhancement. Radiologist: Malinda Ramírez M.D. Study ready at 21:39 and initial results transmitted at 21:43 *This report constitutes a preliminary interpretation only. Non-acute findings felt to be unrelated to the clinical presentation may not be discussed in this report. The study will be interpreted and a final report will be generated by the local Radiologist the following shift. To reach the [facility] radiology department call [phone]. If a discrepancy is found between the preliminary and final interpretations of this study, please notify us via our Client Portal at [email or web address], under QA Exams. You can also fax this report with a description of the discrepancy, or include the final report, to our daytime fax number [phone]. If faxing, please indicate the severity of discrepancy using one of the following categories: [ ] 1 - Agree/Informational [ ] 2 - Unlikely to Affect Management [ ] 3 - Possible Eventual Change of Management [ ] 4 - Probable Immediate Change of Management For all other patient related information, please fax us at [phone]. [id number] Supervising Physician Co-Signing Physician Notes Patient seen and examined, chart reviewed, case discussed with Dr. Franz and I agree with the assessment and plan as documented above. In brief, patient is a 66yo male s/p spinal surgery x 2 last week presenting with acute urinary retention. Afebrile, VSS, nontoxic Skin - incision in LLQ c/d/i without bleeding/drainage/erythemia, back incision with dressing in place HEENT - NC/AT, PERRL, MMM, Neck supple Heart - +S1/S2, Lungs CTA Abd - +BS, soft, NT/ND Ext -no edema Neurologically intact, no deficit Labs and images reviewed Assessment/plan Acute urinary retention, ?post-obstructive diuresis -IVF and electrolyte repletion -Bowel regimen -Pain control per home medications -Remainder as above Resident Activity Tracking Resident Involvement: Resident Care Provided Care Provided: Adult Hospital Medicine
[2022-01-28] MEDS ORDERED: MoRPHine SULFATE CR 15 MG TABCR PO PRN (23:40)
[2022-01-28] MEDS ORDERED: METHOCARBAMOL 750 MG TABLET PO PRN (23:40)
[2022-01-29] MEDS: SODIUM CHLORIDE 0.9% 1000ML 1,000 ML IV SCH ×2 (00:40→08:47)
[2022-01-29] MEDS ORDERED: SODIUM CHLORIDE 0.9% 1000ML 1,000 ML IV SCH ×2 (00:45→02:52)
[2022-01-29] MEDS ORDERED: MAGNESIUM HYDROXIDE SUSP 30 ML UDC PO PRN (02:52)
[2022-01-29] MEDS ORDERED: SODIUM CHLORIDE 0.65% NA SOLN 45 ML (OCEAN) PRN (02:52)
[2022-01-29] MEDS ORDERED: ACETAMINOPHEN 500 MG TAB PO PRN (02:52)
[2022-01-29] MEDS ORDERED: POLYETHYLENE (MIRALAX) 17 GM PACK PO PRN (02:52)
[2022-01-29] MEDS ORDERED: ALUMINUM/MAGNESIUM SUSP 30 ML UDC PO PRN (02:52)
[2022-01-29] MEDS ORDERED: ONDANSETRON INJ 2 MG/ML 2 ML VIAL IV PRN (02:52)
[2022-01-29] MEDS: METHOCARBAMOL 750 MG TABLET PO SCH ×2 (03:39→13:07)
[2022-01-29] MEDS: ACETAMINOPHEN 500 MG TAB PO SCH ×2 (03:39→13:07)
[2022-01-29] MEDS ORDERED: MoRPHine SULFATE CR 15 MG TABCR PO SCH ×2 (04:00→12:30)
[2022-01-29] MEDS: oxyCODONE HCL IR 5 MG TAB (IMMEDIATE RELEASE) PO PRN ×3 (04:52→13:06)
--- NOTE | 2022-01-29 04:54 | Billing Data ---
Date of Service January 28, 2022 Coding Level of Care Code INT OBSERVATION CARE 50M LVL 2
[2022-01-29 05:56] LABS: Eosinophils # (auto) 0.18 K/uL (0-0.5); Eosinophils % (auto) 1.7 %; Hematocrit (blood only) 32.3 % (42-52); Hemoglobin 11.2 g/dL (14.0-18.0); Immature Granulocytes # (auto) 0.03 K/uL (0.00-0.02); Immature Granulocytes % (auto) 0.3 %; Lymphocytes # (auto) 0.94 K/uL (1.2-3.4); Lymphocytes % (auto) 9.1 %; Mean Corpuscular Hemoglobin 31.2 pg (25-34); Mean Corpuscular Hgb Conc 34.7 g/dL (32-36); Monocytes # (auto) 0.99 K/uL (0.11-0.59); Monocytes % (auto) 9.6 %; Neutrophils # (auto) 8.17 K/uL (1.4-6.5); Neutrophils % (auto) 79.3 %; Platelet Count 271 K/uL (130-400); RDW Coefficient of Variation 12.9 % (11.5-14.5); RDW Standard Deviation 42.3 fL (36.4-46.3); Red Blood Count 3.59 M/uL (4.7-6.1); White Blood Count 10.31 K/uL (4.8-10.8)
[2022-01-29 06:27] LABS: BUN Creatinine Ratio 20.6 (10-20); Calcium 8.4 mg/dl (8.5-10.1); Creatinine Clr Calc Pharmacy 94.8 ml/min; Est GFR (African American) 92.6 ml/min; Est GFR (Non-African American) 79.9 ml/min; Magnesium 2.1 mg/dl (1.7-2.4); Potassium 3.5 mmol/L (3.5-5.1)
--- NOTE | 2022-01-29 08:44 | Magnetic Resonance Report ---
MRI LUMBAR SPINE COMBO CLINICAL HISTORY: Difficulty with micturition. Status post spine surgery. COMPARISON STUDY: MRI of lumbar spine dated 03/09/2021. TECHNIQUE: MRI of the lumbar spine is performed utilizing various T1 and T2-weighted sequences in the axial and sagittal planes. Contrast-enhanced sequences were acquired following the IV administration of 10 cc of Gadavist. The examination is severely degraded by susceptibility artifact from extensive metallic spinal hardware. This degrades the diagnostic utility of this examination. FINDINGS: Lumbar spine: Evaluation from L3 to S1 is severely compromised by extensive metallic hardware from an terior and posterior fusion. The vertebral bodies cannot be assessed. Vertebral body height is mainta ined at L1 and L2. The spinous processes of L1 and L2 are normal in appearance. The transverse proces ses cannot be evaluated. No destructive bony lesion is clearly seen. Intervertebral discs: The L3-L4 through L5-S1 discs cannot be assessed. Disc desiccation an loss of h eight is noted at L1-L2 and L2-L3. Spinal cord and central canal: The visualized spinal cord is normal in morphology and signal intensit y. The conus medullaris terminates at the level of L1. The nerve roots of the cauda equina are grossl y unremarkable but not well evaluated. There is an operative bed fluid collection posterior to the th ecal sac at the L3-L5 levels. This is best seen on sagittal image #9 and measures approximately 6 cm in craniocaudal length. This causes significant mass effect on the posterior aspect of the thecal sac which is at least moderately narrowed. There are small foci of gas suggested within this fluid colle ction. Sacrum: Imaged portions of the sacrum are normal in morphology and signal intensity. Soft tissues: There is significant edema within the paraspinous soft tissues and posterior to the the lyn sac with an operative bed fluid collection as discussed above. There is also fluid seen tracking anteriorly along the left psoas musculature into the pelvis. This is likely related to anterior surgi lyn approach. IMPRESSION: 1. Severely degraded examination due to extensive susceptibility artifact from anterior and posterior spinal fusion hardware. This degrades diagnostic utility. 2. There is an approximately 6 cm fluid collection posterior to the thecal sac at the operative bed. The collection causes significant mass effect on the posterior aspect of the thecal sac which is at l east moderately narrowed. The sterility of this fluid cannot be assessed by imaging. 3. Fluid is seen tracking anterior to the left psoas muscle into the left pelvis, possibly represent postoperative fluid/hematoma. (The sterility of this fluid cannot be assessed by imaging. Electronically signed by: Santi Bagley M.D. 01/29/2022 8:43 AM
[2022-01-29] MEDS ORDERED: FINASTERIDE 5 MG TAB PO SCH (09:00)
[2022-01-29] MEDS ORDERED: DOCUSATE SODIUM 100 MG CAP PO SCH (09:00)
[2022-01-29] MEDS ORDERED: DOXAZosin MESYLATE TAB 2 MG TAB PO SCH (09:00)
--- NOTE | 2022-01-29 12:16 | Orthopedic Consultation ---
Date of Consultation January 29, 2022 Assessment & Plan (1) Status post spinal surgery: MRI lumbar spine does demonstrate evidence of a normal postoperative fluid collection. There is some compression of the thecal sac but he has no clinical signs of neural irritation or damage. At this point I suspect his retention is related to his prostate disease. I do not believe he requires any urgent procedure. He should follow-up with a surgeon as scheduled. History of Present Illness Reason for Consultation: Urinary retention Attending Physician: Delvin Carl MD History of Present Illness This is a pleasant 58-year-old male who presents last evening with urinary retention. Is status post anterior posterior lumbar decompression fusion last week in [place]. He done nicely postoperatively was home over the weekend but noticed his decline and inability to ambulate earlier yesterday. He denies any numbness or tingling lower extremities denies any weakness to lower extremities in fact he states his symptoms have improved with his nerve symptoms since his procedure. Allergies Allergy/AdvReac Type Severity Reaction Status Date / Time Penicillins Allergy Severe Anaphylaxis Verified 01/28/22 20:00 grass pollen-perennial rye, Allergy Mild Sneezing Verified 01/28/22 20:00 standar mold Allergy Mild Sneezing Verified 01/28/22 20:00 pollen extracts Allergy Mild Sneezing Verified 01/28/22 20:00 scallops AdvReac Diarrhea Unverified 01/28/22 20:00 Home Medications Medication Instructions Recorded Confirmed Type doxazosin 2 mg tablet 2 mg PO QAM 04/15/20 01/28/22 History doxepin 10 mg capsule 10 mg PO HS 04/15/20 01/28/22 History finasteride 5 mg tablet 5 mg PO QAM 04/15/20 01/28/22 History fluticasone furoate 27.5 1 spray INTRANASAL DAILY PRN 04/15/20 01/28/22 History mcg/actuation nasal spray,suspension (Flonase Sensimist) sodium chloride 0.65 % nasal spray 2 spray INTRANASAL DIRECTED PRN 04/15/20 01/28/22 History aerosol (Saline Nasal) acetaminophen 500 mg tablet 1,000 mg PO Q8H PRN 01/28/22 01/28/22 History docusate sodium 100 mg tablet 100 mg PO BID 01/28/22 01/28/22 History methocarbamol 750 mg tablet 750 mg PO Q8H PRN 01/28/22 01/28/22 History morphine 15 mg tablet,extended 15 mg PO Q12H PRN 01/28/22 01/28/22 History release oxycodone 10 mg tablet 10 mg PO Q4H PRN 01/28/22 01/28/22 History Patient History Medical History Asthma mild and well controlled BCC (basal cell carcinoma) BPH (benign prostatic hyperplasia) BPH with obstruction/lower urinary tract symptoms Prediabetes well controlled & monitored Seasonal allergies Surgical History H/O right knee surgery open H/O wisdom tooth extraction History of cardiac cath no stents (~2009) History of cataract surgery bilateral History of colonoscopy History of detached retina repair x2 (left eye) S/P Mohs surgery for basal cell carcinoma Family History Brother Diabetes Pancreatic cancer Sister Diabetes Nephrolithiasis Mother Hypertension Lung cancer Father Heart disease Other No family history of adverse response to anesthesia Social History Smoking Status: Never smoker Second Hand Exposure: No; Do You Dip or Chew Tobacco: No; Hx Alcohol Use: No Hx Substance Use: No Preferred Language: Mozambican Communication Ability: Effective Writing Tutor Required: No Beliefs That Will Affect Care: None marital status: Current Living Situation: Family Current Living Situation Comment: + son&daughter current occupational status: employed Other Information That Helps Us Care for You: No Feels Safe at Home: Yes Safety Concerns: Feels Safe At This Time Assistive Devices: Walker Physical Exam Physical Exam: On exam he exhibits plus out of 5 plantar flexion dorsiflexion quadriceps. He was able to stand for me on his own volition. The dressings are in place. There is no appreciable swelling or drainage. Sensory is symmetric and intact. Results & Data ([facility]) Vital Signs (Past 12 Hours) Vital Signs Temp Pulse Pulse Resp BP BP Pulse Ox 01/29/22 07:42 36.8 C 71 16 140/77 94 01/29/22 03:01 37.0 C 85 16 145/82 H 95 01/29/22 01:00 77 18 136/92 92
--- NOTE | 2022-01-29 13:01 | Discharge Summary ---
Date of Service January 29, 2022 Admission HPI Per Admitting Provider Ronny is a 66 yo male with PMHx of BPH. Patient had 2 spine surgeries at [facility] last week (01/21 and 01/23). He was discharged and returned home to [place] 2 days ago. Due to hx of BPH, he reports chronically retaining about 400 to 500cc urine; usually voiding 200 to 300 cc per void. However, starting last night, patient began to have increased difficulty urinating and was only "dribbling" overnight which is new for him. In addition to the urinary retention, patient has had constipation x3 days. He did have a "forced" bowel movement this morning after using 3 fleet enemas within past 24 hours at home. While in the ED, patient had a xie placed which drained almost 6 liters of urine. UA with cloudy urine but otherwise unremarkable. Cr 2.16 (unknown current baseline, last labs 8 years ago and at that time Cr baseline 1.0). Patient denies vomiting, new numbness or tingling, CP, or SOB. He will be admitted for IVF hydration as well as monitoring of fluid shift and electrolyte stability. Principal Diagnosis 1. Urinary retention (likely medication induced) s/p xie insertion 2. Post operative seroma Discharge Exam GENERAL: 66 yo well-developed, well-nourished WM. NAD. LUNGS: Clear to auscultation bilaterally. No accessory muscle use. No W/R/R. CARDIOVASCULAR: Regular rate and rhythm. No M/G/R. No JVD. ABDOMEN: Soft, non-tender and non-distended. BS normal x 4 quad. Anterior belly surgical site dressed/dry. EXTREMITIES: No edema. Non-tender. Peripheral pulses +2/4. NEUROLOGIC: A&O x3. No focal neurological deficits. PSYCHIATRIC: Cooperative. Appropriate mood and affect. SKIN: Warm, dry, intact. No rashes or lesions. Back incision dressed. Dressing dry. No drains present. Discharge Data Allergies Allergy/AdvReac Type Severity Reaction Status Date / Time Penicillins Allergy Severe Anaphylaxis Verified 01/28/22 20:00 grass pollen-perennial rye, Allergy Mild Sneezing Verified 01/28/22 20:00 standar mold Allergy Mild Sneezing Verified 01/28/22 20:00 pollen extracts Allergy Mild Sneezing Verified 01/28/22 20:00 scallops AdvReac Diarrhea Unverified 01/28/22 20:00 Consultations 01/28/22 23:02 ED Decision to Admit Stat 01/28/22 23:06 ED Decision to Admit Stat 01/29/22 10:22 Consult Orthopedic Surgery Routine Ordered Studies Lumbar Spine MRI 01/28/22 18:41 MRI LUMBAR SPINE COMBO CLINICAL HISTORY: Difficulty with micturition. Status post spine surgery. COMPARISON STUDY: MRI of lumbar spine dated 03/09/2021. TECHNIQUE: MRI of the lumbar spine is performed utilizing various T1 and T2- weighted sequences in the axial and sagittal planes. Contrast-enhanced sequences were acquired following the IV administration of 10 cc of Gadavist. The examination is severely degraded by susceptibility artifact from extensive metallic spinal hardware. This degrades the diagnostic utility of this examin ation. FINDINGS: Lumbar spine: Evaluation from L3 to S1 is severely compromised by extensive metallic hardware from anterior and posterior fusion. The vertebral bodies cannot be assessed. Vertebral body height is maintained at L1 and L2. The spinous processes of L1 and L2 are normal in appearance. The transverse processes cannot be evaluated. No destructive bony lesion is clearly seen. Intervertebral discs: The L3-L4 through L5-S1 discs cannot be assessed. Disc desiccation an loss of height is noted at L1-L2 and L2-L3. Spinal cord and central canal: The visualized spinal cord is normal in morphology and signal intensity. The conus medullaris terminates at the level of L1. The nerve roots of the cauda equina are grossly unremarkable but not well evaluated. There is an operative bed fluid collection posterior to the thecal sac at the L3-L5 levels. This is best seen on sagittal image #9 and measures approximately 6 cm in craniocaudal length. This causes significant mass effect on the posterior aspect of the thecal sac which is at least moderately narrowed. There are small foci of gas suggested within this fluid collection. Sacrum: Imaged portions of the sacrum are normal in morphology and signal intensity. Soft tissues: There is significant edema within the paraspinous soft tissues and posterior to the thecal sac with an operative bed fluid collection as discussed above. There is also fluid seen tracking anteriorly along the left psoas musculature into the pelvis. This is likely related to anterior surgical approach. IMPRESSION: 1. Severely degraded examination due to extensive susceptibility artifact from anterior and posterior spinal fusion hardware. This degrades diagnostic utility. 2. There is an approximately 6 cm fluid collection posterior to the thecal sac at the operative bed. The collection causes significant mass effect on the posterior aspect of the thecal sac which is at least moderately narrowed. The sterility of this fluid cannot be assessed by imaging. 3. Fluid is seen tracking anterior to the left psoas muscle into the left pelvis, possibly represent postoperative fluid/hematoma. (The sterility of this fluid cannot be assessed by imaging. Electronically signed by: Santi Bagley M.D. 01/29/2022 8:43 AM Hospital Course (1) Acute urinary retention: Patient is a 66 yo male with hx of BPH and recent spinal surgery admitted for acute urinary retention. - Likely secondary to hx of BPH and constipation, could also be d/t medications for pain given post operatively - Xie placed in ED with about 6 L of urine output - UA unremarkable - Cr elevated at 2.16 -- unknown baseline but suspect postrenal RADHA secondary to retention which has normalized today - IVF NSS at 125 cc/hr given overnight, will stop - Continued on his home doxazosin and finasteride - Will plan to d/c home with xie (change to leg back prior to d/c) - Discussed with patient's urologist, Dr. Briones, he will see in the office in 1-2 weeks for a voiding trial (2) BPH with obstruction/lower urinary tract symptoms: - Continued on his Doxazosin and Proscar (3) Status post spinal surgery: - Will continue pain medication regimen s/p surgery with Tylenol 1g q8h, robaxin 750mg q8h, oxycontin 15mg q12h, and oxycodone 10mg q4h prn - Encouraged patient to f/u with PCP and surgeon as scheduled - 6cm post operative seroma noted on lumbar MRI, I have d/w Dr. Gilbert who has also seen patient in consult, please see his note for additional details - Also d/w provider solution design engineer for patient's surgeon, Dr. Lu. Spoke with Marcela Padilla PA-C who noted that because pt remains neurovascularly intact, they are NOT concerned with the findings on MRI. They did review the report and do not recommend any earlier follow up or intervention at this time. (4) Constipation: - Secondary to pain medication regimen s/p spinal surgery - Continue bowel regimen with colace, miralax, and milk of mag - Fleet enema if needed - high fiber diet At this time, pt is medically and hemodynamically stable for discharge. Spoke with urology, Dr. Briones will follow up with him in the office in 1-2 weeks for a voiding trial. Pt will maintain xie catheter which will be changed to a leg bag upon d/c. Recommend f/u with pcp and surgeon as scheduled. Advised if any change in neurologic status in legs (numbness/tingling, difficulty with bowel incontinence, trouble walking, pain radiating down one or both legs, fever/chills) that he go to the ER promptly for evaluation and notify his surgeon. Discussed case with Dr. Delvin Carl who is in agreement. Total Time Total Time Spent Total Time Spent (In Minutes): >30 minutes Discharge Plan Discharge Items Patient Disposition: Home - Self-Care Reason For Visit: URINARY RETENTION Discharge Diagnosis: urinary retention Activity: As commented below Activity Comment: as instructed by your back surgeon Non-emergency contact: Primary Care Provider and Surgeon Call non-emergency contact if: you have any medication questions and your symptoms worsen Follow-up/Referrals: Celio Briones MD [Physician] - 02/07/22 9:30 am Kerwin Ortiz MD [Primary Care Provider] - (Office will call patient with appointment date and time) Diet: Regular Addtl Attending Provider Instructions: You were hospitalized due to retaining a large amount of urine in your bladder. This is likely a combination of your enlarged prostate as well as taking pain medication for your recent back surgery. A catheter has been placed that drains the urine from your bladder. At this time, we would advise that this stay in place and will arrange for you to follow up with your urologist, Dr. Briones, in the office in 1-2 weeks. An appointment will be made for you. Please keep this appointment. You were noted to have a fluid collection in the site of your recent back surgery. This finding was reviewed by our spine surgeon here at [facility], Dr. Gilbert, as well as has been discussed with the provider covering for your spine surgeon, Dr. Lu. They are not concerned with these findings and you are advised to follow up with them as previously scheduled. If you should develop numbness or tingling in your groin or legs, pain radiating down one or both legs, difficulty walking, increased back pain, fever/chills, or difficulty controlling your bowels, please go promptly to the ER for evaluation as this could indicate that the size of the fluid collection is getting bigger and compressing your spinal cord. In addition to taking your stool softener twice a day, I would start taking MiraLax 17g dissolved in 8 ounces of a beverage once a day to help with your constipation. We would recommend that you follow up with your family doctor within 1 week of discharge or sooner if needed. Please call the [facility] number with any questions you may have. In the event of a medical emergency, please call 911. Pending Studies at Discharge: No Stand-Alone Forms: My [facility], Smoking Cessation Medications and DC Order Prescriptions: New polyethylene glycol 3350 [Miralax] 17 gram/dose powder 17 g PO DAILY Qty: 119 RF: 0 Continued doxepin 10 mg capsule 10 mg PO HS RF: 0 finasteride 5 mg tablet 5 mg PO QAM RF: 0 doxazosin 2 mg tablet 2 mg PO QAM RF: 0 Saline Nasal 0.65 % Aerosol,Romeo 2 spray INTRANASAL DIRECTED PRN (Reason: Congestion) RF: 0 Flonase Sensimist 27.5 mcg/actuation Romeo,Suspension 1 spray INTRANASAL DAILY PRN (Reason: sinus congestion) RF: 0 methocarbamol 750 mg tablet 750 mg PO Q8H PRN (Reason: Spasms) RF: 0 acetaminophen 500 mg Tablet 1,000 mg PO Q8H PRN (Reason: Pain) RF: 0 morphine 15 mg tablet extended release 15 mg PO Q12H PRN (Reason: Pain) RF: 0 oxycodone 10 mg tablet 10 mg PO Q4H PRN (Reason: Pain) RF: 0 docusate sodium 100 mg Tablet 100 mg PO BID RF: 0 Discharge Orders: Discharge Order (Routine); Ordered 01/29/22 Ordered By: Ayala Lr Admission Data Admit Date/Time: 01/28/22 23:40 Attending Provider: Delvin Carl Admit Provider: Zaynab Franz Primary Care Provider: Kerwin Ortiz Other Providers: Delvin Carl ; [place] Gilbert Other Interventions: Discharge Summary Assessment (RN) Last Done: 01/29/22 16:35 Supervising Physician Co-Signing Physician Notes I supervised Ayala Lr PA-C on the care of this patient. I did not see the patient as he had been seen by the attending within the last 24 hours. The plan is as written in her note except for any following changes/exceptions: None Doing well overall. Seen by our orthopedic surgeon without concern for spinal cord compromise. Discussed with the operating surgeon who felt the same. Do not feel his urinary retention is due to neurologic issues, but to his known BPH. Will discharge with Xie and urology follow-up. Coding Level of Care Code D/C DAY MANAGEMENT >30 MINS Diagnoses Acute urinary retention R33.8 BPH with obstruction/lower urinary tract symptoms N40.1; N13.8 Status post spinal surgery Z98.890 Constipation K59.00
[2022-01-29] MEDS ORDERED: DOXEPIN HCL 10 MG CAPSULE PO SCH (21:00)
== END 2022-01-29 18:18 | disposition home or self-care (01) ==
LOC: ED 17:50 → 3E 17:50 → SUATTDRO 23:40 → 3E 01-29 03:01

== ENCOUNTER 2023-06-27 16:52 | Observation (INO) ==
[2023-06-27 19:59] LABS: Basophils # (auto) 0.04 K/uL (0.00-0.20); Basophils % (auto) 0.7 %; Eosinophils # (auto) 0.18 K/uL (0.00-0.50); Eosinophils % (auto) 3.1 %; Hematocrit (blood only) 41.9 % (42.0-52.0); Hemoglobin 14.8 g/dl (14.0-18.0); Immature Granulocytes # (auto) 0.01 K/uL (0.01-0.20); Immature Granulocytes % (auto) 0.2 %; Lymphocytes # (auto) 1.43 K/uL (1.20-3.40); Lymphocytes % (auto) 24.7 %; Mean Corpuscular Hemoglobin 29.8 pg (25.0-34.0); Mean Corpuscular Hgb Conc 35.3 g/dL (32.0-36.0); Mean Corpuscular Volume 84.3 fL (80.0-100.0); Monocytes # (auto) 0.48 K/uL (0.11-0.59); Monocytes % (auto) 8.3 %; Neutrophils # (auto) 3.64 K/uL (1.40-6.50); Platelet Count 220 K/uL (130-400); RDW Coefficient of Variation 13.3 % (11.5-14.5); RDW Standard Deviation 40.7 fL (36.4-46.3); Red Blood Count 4.97 M/uL (4.70-6.10); White Blood Count 5.78 K/ul (4.8-10.8)
[2023-06-27 20:18] LABS: Albumin Globulin Ratio 1.6 (0.9-2); Albumin Level 4.6 gm/dl (3.4-5.0); BUN Creatinine Ratio 14.3 (10-20); Bilirubin,Total 0.4 mg/dl (0.2-1.0); Calcium 9.9 mg/dl (8.6-10.3); Creatinine Clr Calc Pharmacy 107.4 ml/min; Est GFR (African American) 103.5 ml/min; Est GFR (Non-African American) 89.3 ml/min; Globulin 2.8 gm/dl (2.5-4.0); Potassium 4.1 mmol/L (3.5-5.1); Total Protein 7.4 gm/dl (6.0-8.3)
[2023-06-27 20:24] LABS: Troponin I High Sensitivity 21.4 pg/ml (0-20)
[2023-06-27 20:30] LABS: Influenza A virus by PCR Negative (Neg); Influenza B virus by PCR Negative (Neg); RSV by PCR Negative (Neg); SARS CoV2 RNA(COVID-19) Ceph NEGATIVE (Negative)
[2023-06-27 20:38] LABS: Partial Thromboplastin Ratio 0.9; Partial Thromboplastin Time 26.4 Seconds (21.0-31.0); Prothrombin Time 10.8 Seconds (9.0-12.0)
[2023-06-27] MEDS ORDERED: OPTIRAY 320 500ml IV ONE (21:14)
--- NOTE | 2023-06-27 23:27 | CT Scan Report ---
CT ANGIOGRAM OF THE CHEST CLINICAL HISTORY: Atypical chest pain. COMPARISON STUDY: Chest x-ray dated 06/25/2023. Chest CT dated 06/29/2009. TECHNIQUE: Following the IV administration of 110 cc of Optiray 320, CT angiogram of the chest was pe rformed from the upper abdomen to the thoracic inlet utilizing the pulmonary embolus protocol. Images are reviewed in the axial, sagittal, and coronal planes. 3-D MIPS images are created and assessed. I V contrast was administered without complication. A dose lowering technique was utilized adhering to the principles of ALARA. CT DOSE: 787.07 mGy.cm FINDINGS: Thyroid: Imaged portions of the thyroid gland are normal in size and attenuation. Thoracic aorta: There is mild atherosclerotic calcification of the thoracic aorta, which is normal in caliber and demonstrates 4-vessel variant arch anatomy. No dissection is seen. Pulmonary vasculature: The pulmonary trunk is normal in caliber. There is pulmonary embolus within th e right upper and right lower lobe pulmonary arteries. This extends into segmental and subsegmental b ranches. There is also pulmonary embolus within the left lower lobe pulmonary artery which extends in to segmental and subsegmental branches. Pulmonary embolus is seen within segmental and subsegmental b ranches in the left upper lobe and lingula. Heart: The heart is enlarged noting a small pericardial effusion. There are scattered coronary artery calcifications. Lungs and pleural spaces: Small foci are present at both lung bases and at the right apex (images #8, #45, and #204). Given the presence of pulmonary emboli these likely represent small pulmonary infarc ts. Of wedge-shaped subpleural consolidation There is a 14 mm groundglass lesion in the right upper l obe seen on image #192. No pleural effusion is identified. A calcified granuloma is noted in the left lower lobe. Mediastinum: There is no mediastinal lymphadenopathy. Karla: Clear. Axillae: There is no axillary lymphadenopathy. Upper abdomen: There is a small hiatal hernia. Partially visualized upper abdominal viscera is otherw ise within normal limits. Skeletal structures: Mild degenerative changes noted in the shoulders and spine. There is an indeterm inant sclerotic focus within the left body of T7 seen on axial image #141. This is unchanged from 200 9 and of low suspicion. No destructive bony lesion is clearly seen. IMPRESSION: 1. Bilateral pulmonary emboli as above. 2. Cardiomegaly. 3. Small foci of subpleural consolidation are present in both lungs. These are typical for small pulm onary infarcts. 4. An indeterminate 1.4 cm groundglass focus is seen in the right upper lobe. Although this could be on an inflammatory basis, a low-grade adenomatous lesion could also have this appearance. A 3-month f ollow-up chest CT is recommended for reassessment. 5. Additional findings as above. ACT 112: Positive. There are findings on this exam that require communication between the performing entity and the patient following Patient Test Result Information Act ([place] Act 112) guidelines. Electronically signed by: aSnti Bagley M.D. 06/27/2023 11:25 PM
[2023-06-27] MEDS ORDERED: Heparin IV Adult Wt-Based Standard WITH Bolus Protocol IV STA (23:51)
[2023-06-28] MEDS ORDERED: HEPARIN SOD (PORCINE) 1000 UNIT/ML IV ONE (00:06)
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
[2023-06-28] MEDS ORDERED: HEPARIN SODIUM/DEXTROSE 25,000 UNITS/500 ML BAG IV SCH (00:15)
[2023-06-28] MEDS ORDERED: ENOXAPARIN 1 MG/KG SC SCH (00:15)
[2023-06-28] MEDS ORDERED: ENOXAPARIN INJ 120 MG/0.8 ML SYR SQ SCH (00:30)
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
[2023-06-28] MEDS ORDERED: ONDANSETRON INJ 2 MG/ML 2 ML VIAL IV PRN (03:27)
[2023-06-28] MEDS ORDERED: ACETAMINOPHEN 325 MG TAB PO PRN (03:27)
--- NOTE | 2023-06-28 08:13 | Ultrasound Report ---
US venous doppler LE BI CLINICAL HISTORY: ro dvt TECHNIQUE: Bilateral lower extremity real-time compression venous ultrasound with Color Doppler imagi ng. Utilizing real-time ultrasonic imaging multiple real time high-resolution ultrasonic images with compression and noncompression maneuvers of the deep venous system in addition to color doppler imagi ng were performed from the common femoral vein through the proximal calf veins. COMPARISON: Comparison is made to left lower extremity venous ultrasound 01/26/2018 FINDINGS/IMPRESSION: A nonocclusive thrombus is seen in the left distal superficial femoral vein and popliteal vein, likel y chronic, comparable to prior exam. Evaluation of the calf veins is limited bilaterally. No superfic ial venous thrombosis is identified. ACT 112: Negative or not required by law. Electronically signed by: Jamel Greene M.D. 06/28/2023 8:12 AM
[2023-06-28] MEDS ORDERED: FINASTERIDE 5 MG TAB PO SCH (09:00)
[2023-06-28] MEDS ORDERED: DOXAZosin MESYLATE TAB 2 MG TAB PO SCH (09:00)
--- NOTE | 2023-06-28 10:39 | Discharge Summary ---
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 He has a history of left lower extremity DVT about 15 years ago, and reports being on Coumadin for about 6 years, which was then discontinued by his physician. Patient reports to the ED due to elevated D-dimer performed in the outpatient setting. Upon questioning, he reports that about 3 weeks ago he developed acute shortness of breath, he reports that has been gradually improving during the interval time. He initially checked his pulse ox at home, and found it to be in the mid to upper 80s, reports now that it is in the mid 90s. He denies any recent travels or sick exposures, he denies any recent traumas. His initial DVT of left lower extremity was associated with a surgery of his lower extremity Principal Diagnosis Bilateral pulmonary emboli with suspected small pulmonary infarcts, incidental finding of right upper lobe 1.4 cm nodule Discharge Exam General-alert and oriented x3, no fevers, no chills HEENT-head atraumatic and normocephalic, pupils equal and reactive to light, extraocular muscles intact Neck-no lymphadenopathy or thyromegaly, trachea midline Chest-clear to auscultation percussion. No rales wheezing or rhonchi Cardiac-regular rate and rhythm, normal S1 and S2 Abdomen-normal bowel sounds, nontender, no hepatosplenomegaly Extremities-no cyanosis, clubbing, or edema Neuro-cranial nerves II through XII intact, motor and sensory function within normal limits, strength symmetrical, no focal deficits Psych-normal affect, normal mood Discharge Data Allergies Allergy/AdvReac Type Severity Reaction Status Date / Time amoxicillin Allergy Severe Anaphylaxis Verified 06/24/23 11:36 Penicillins Allergy Severe Anaphylaxis Verified 06/24/23 11:36 grass pollen-perennial rye, Allergy Mild Sneezing Verified 06/24/23 11:36 standar mold Allergy Mild Sneezing Verified 06/24/23 11:36 pollen extracts Allergy Mild Sneezing Verified 06/24/23 11:36 cephalexin AdvReac Intermediate Gastrointestinal Verified 06/24/23 11:36 Upset scallops AdvReac Intermediate Diarrhea Verified 06/24/23 11:36 Consultations 06/28/23 00:03 ED Decision to Admit Stat Ordered Studies 06/27/23 17:33 CT angio chest PE protocol Stat 06/28/23 00:02 US venous doppler [facility] Stat Hospital Course (1) Bilateral pulmonary embolism: Fortunately, he is asymptomatic and on room air. There may be associated small pulmonary infarctions. The nonocclusive DVT in the superficial veins of the left leg are chronic according to the patient. He has been switched to Xarelto 15 mg twice a day. (2) BPH with obstruction/lower urinary tract symptoms: Stable. Continue current medical (3) History of deep venous thrombosis (DVT) of distal vein of left lower extremity: This appears actually to involve the superficial veins and is chronic according to the patient (4) Pulmonary embolism with infarction: Currently asymptomatic Plan Home on Xarelto 15 mg twice daily for 3 weeks then eventual switch to Xarelto 15 mg daily by the PCP. Fortunately he is on room air and asymptomatic. Total Time Total Time Spent Total Time Spent (In Minutes): 45-minute Discharge Plan Discharge Items Patient Disposition: Home - Self-Care Reason For Visit: B/L PE'S Discharge Diagnosis: Bilateral pulmonary emboli, suspected associated pulmonary infarctions, incidental finding of 1.4 cm right upper lobe nodule Activity: Resume your previous activity Non-emergency contact: Primary Care Provider Call non-emergency contact if: your symptoms worsen Follow-up/Referrals: Kerwin Ortiz MD [Primary Care Provider] - Diet: Regular Addtl Attending Provider Instructions: Take Xarelto 15 mg twice a day for 3 weeks then switch to Xarelto 20 mg daily. The Xarelto 20 mg prescription will need to come from your PCP Pending Studies at Discharge: No Stand-Alone Forms: My [employer], Smoking Cessation Medications and DC Order Prescriptions: New Xarelto 15 mg Tablet 15 mg PO BID Qty: 40 0RF Continued finasteride 5 mg tablet 5 mg PO QAM Qty: 90 3RF doxazosin 2 mg tablet 2 mg PO QAM Qty: 90 3RF diphenhydramine HCl [Benadryl Allergy] 25 mg tablet 25 mg PO BID PRN (Reason: Allergy Symptoms) vitamin D3-vitamin K2 1 - 2 drp PO QAM albuterol sulfate 90 mcg/actuation HFA aerosol inhaler 2 puff INHALATION Q4H PRN (Reason: Shortness Of Breath Or Wheezing) Patient Comments: last use 04/16/23 Discharge Orders: Discharge Order (Routine); Ordered 06/28/23 Ordered By: Sandro Matute/Other Patient Handouts: DVT Dc, Pulmonary Embolism Dc Admission Data Admit Date/Time: 06/28/23 01:15 Attending Provider: Sandro Murrieta Admit Provider: Rodney Werner Primary Care Provider: Kerwin Ortiz Other Providers: Rodney Werner Other Interventions: Discharge Summary Assessment (RN) Last Done: 06/28/23 10:39 Coding Level of Care Code 68464 INP/OBS DISCH >30 MIN Diagnoses Bilateral pulmonary embolism I26.99 BPH with obstruction/lower urinary tract symptoms N40.1; N13.8 History of deep venous thrombosis (DVT) of distal vein of left lower extremity Z86.718 Pulmonary embolism with infarction I26.99
[2023-06-28] MEDS ORDERED: RIVAROXABAN 15 MG TAB PO SCH (10:45)
--- NOTE | 2023-06-29 07:18 | Electrocardiogram Report ---
Test Reason : Blood Pressure : / mmHG Vent. Rate : 053 BPM Atrial Rate : 053 BPM P-R Int : 140 ms QRS Dur : 088 ms QT Int : 454 ms P-R-T Axes : 042 -06 033 degrees QTc Int : 426 ms Poor data quality, interpretation may be adversely affected Sinus bradycardia with sinus arrhythmia Otherwise normal ECG When compared with ECG of 27-FEB-2023 08:26, Premature ventricular complexes are no longer Present Vent. rate has decreased BY 40 BPM Incomplete right bundle branch block is no longer Present Confirmed by Ted Wood ([id number]) on 06/29/2023 7:18:41 AM Referred By: Kerwin Ortiz Confirmed By:Ted Wood
== END 2023-06-28 11:38 | disposition home or self-care (01) | DRG 176 ==
LOC: ED 16:52 → INTOOBSV 06-28 01:15 → SUATTDRO 06-28 01:15 → 2N 06-28 01:15

== ENCOUNTER 2024-03-31 06:24 | Inpatient (IN) ==
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
[2024-03-31] MEDS: SODIUM CHLORIDE 0.9% 500 ML IV ONE (07:29)
[2024-03-31 07:49] LABS: Basophils # (auto) 0.04 K/uL (0.00-0.20); Basophils % (auto) 0.7 %; Eosinophils # (auto) 0.14 K/uL (0.00-0.50); Eosinophils % (auto) 2.5 %; Hematocrit (blood only) 44.1 % (42.0-52.0); Immature Granulocytes # (auto) 0.03 K/uL (0.01-0.20); Immature Granulocytes % (auto) 0.5 %; Lymphocytes # (auto) 1.12 K/uL (1.20-3.40); Lymphocytes % (auto) 19.9 %; Mean Corpuscular Hemoglobin 29.8 pg (25.0-34.0); Mean Corpuscular Volume 87.7 fL (80.0-100.0); Mean Platelet Volume 9.8 fL (9.4-12.4); Monocytes # (auto) 0.46 K/uL (0.11-0.59); Monocytes % (auto) 8.2 %; Neutrophils # (auto) 3.85 K/uL (1.40-6.50); Neutrophils % (auto) 68.2 %; Platelet Count 274 K/uL (130-400); RDW Coefficient of Variation 12.4 % (11.5-14.5); RDW Standard Deviation 39.8 fL (36.4-46.3); Red Blood Count 5.03 M/uL (4.70-6.10); White Blood Count 5.64 K/ul (4.8-10.8)
[2024-03-31 07:52] LABS: Appearance Urine Cloudy (Clear); Bilirubin Urine Negative (Negative); Blood Urine 3+ (Negative); Color Urine Red; Glucose Urine UA Negative (Negative); Ketones Urine Negative (Negative); Leukocyte Esterase Urine Negative (Negative); Nitrite Urine Negative (Negative); Protein Urine 3+ (Negative); Specific Gravity Urine 1.025 (1.000-1.030); Urobilinogen Urine Negative (Negative); pH Urine 6.5 (4.5-7.5)
[2024-03-31 08:00] LABS: Bacteria Urine None Seen (None Seen); RBC Urine >20 /hpf (0-2); WBC Urine 0-5 /hpf (0-5)
[2024-03-31 08:03] LABS: Albumin Globulin Ratio 1.3 (0.9-2); Albumin Level 4.2 gm/dl (3.4-5.0); BUN Creatinine Ratio 21.8 (10-20); Bilirubin,Total 0.6 mg/dl (0.2-1.0); Calcium 9.5 mg/dl (8.6-10.3); Creatinine Clr Calc Pharmacy 100.8 ml/min; Est GFR (African American) 101.3 ml/min; Est GFR (Non-African American) 87.4 ml/min; Globulin 3.2 gm/dl (2.5-4.0); Potassium 3.7 mmol/L (3.5-5.1); Total Protein 7.4 gm/dl (6.0-8.3)
[2024-03-31 08:11] LABS: INR 1.2 (0.9-1.1); Partial Thromboplastin Ratio 1.2; Partial Thromboplastin Time 33 Seconds (21-31); Prothrombin Time 12.4 Seconds (9.0-12.0)
[2024-03-31] MEDS: ceFAZolin 3,000 MG in DEXTROSE 5% 50 ML IV STA (14:37)
[2024-03-31] MEDS: SODIUM CHLORIDE 0.9% 1,000 ML IV ONE (14:37)
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
[2024-03-31] MEDS ORDERED: MELATONIN 3 MG TAB PO PRN (17:40)
[2024-03-31] MEDS ORDERED: ALBUTEROL HFA 8 GM INHALER INH PRN (17:40)
[2024-03-31] MEDS: diphenhydrAMINE 50 MG/ML VIAL IV STA (20:49)
--- NOTE | 2024-04-01 07:59 | Urology Progress Note ---
Date of Service April 01, 2024 Assessment & Plan (1) Hematuria: (2) Acute urinary retention: Plan: 68 yo/M admitted for hematuria and urinary retention Afebrile, hemodynamically stable Labs reviewedcreatinine 0.80, WBC 12.47, hemoglobin 11.8 Continue to trend H&H--transfuse as necessary per medicine team He was treated with Ancef in the emergency department, initiated on ciprofloxacin today Lawson patent and draining pink urine with CBI on slow Okay to gently hand irrigate catheter as needed for catheter obstruction Plan to titrate CBI as appropriate Plan to maintain catheter for at least a week to allow the urethra to heal and then we can remove and perform a void trial as an outpatient Continue home finasteride and doxazosin Xarelto on hold Continue supportive care and medical management per hospital medicine Recommend cystoscopy as an outpatient will follow Admission and Anticipated Discharge Date Admission Date: March 31, 2024 Subjective Patient seen and examined at bedside No acute issues overnight Catheter did not require manual irrigation overnight Lawson patent and draining pink urine with CBI on slow Reports having a sensation of urgency a few times overnight Denies suprapubic pain No fever or chills Review of Systems Constitutional: as per Subjective / HPI Genitourinary: + as per Subjective / HPI Physical Exam Constitutional: well developed and well nourished; no acute distress Respiratory: normal respiratory effort; no respiratory distress and no labored breathing Gastrointestinal (Abdomen): Inspection/Auscultation: abdomen normal to inspection Musculoskeletal: Head/Neck/Chest: normocephalic Neurologic: moves all extremities and awake Psychiatric: Orientation: alert and oriented x 3 Genitourinary: Lawson patent and draining pink urine with CBI on slow Results & Data Vital Signs (Past 12 Hours) Vital Signs Temp Pulse Resp BP Pulse Ox O2 Del Method 04/01/24 06:54 36.6 C 64 16 129/78 95 Room Air 03/31/24 20:05 36.9 C 78 16 133/72 95 Room Air PG Care Time/CCT Total # of Minutes Spent Total Time Spent with Patient: Total time spent is greater than 50% in coordination of care (as documented) at patient's floor/unit and/or counseling patient: Coding Level of Care Code 79223 SUB INP/OBS CARE 1/25MIN Diagnoses Hematuria R31.0 Hematuria type: gross Acute urinary retention R33.8 (1) Hematuria Hematuria type: gross Qualified Code(s): R31.0 - Gross hematuria
[2024-04-01] MEDS: DOXAZosin MESYLATE TAB 2 MG TAB PO SCH (08:09)
[2024-04-01] MEDS: FINASTERIDE 5 MG TAB PO SCH (08:10)
[2024-04-01 08:11] LABS: Basophils # (auto) 0.03 K/uL (0.00-0.20); Basophils % (auto) 0.2 %; Eosinophils % (auto) 0.8 %; Hematocrit (blood only) 34.3 % (42.0-52.0); Hemoglobin 11.8 g/dl (14.0-18.0); Immature Granulocytes # (auto) 0.05 K/uL (0.01-0.20); Immature Granulocytes % (auto) 0.4 %; Lymphocytes # (auto) 1.51 K/uL (1.20-3.40); Lymphocytes % (auto) 12.1 %; Mean Corpuscular Hemoglobin 30.3 pg (25.0-34.0); Mean Corpuscular Hgb Conc 34.4 g/dL (32.0-36.0); Mean Corpuscular Volume 88.2 fL (80.0-100.0); Mean Platelet Volume 10.5 fL (9.4-12.4); Monocytes # (auto) 0.79 K/uL (0.11-0.59); Monocytes % (auto) 6.3 %; Neutrophils # (auto) 9.99 K/uL (1.40-6.50); Neutrophils % (auto) 80.2 %; Platelet Count 270 K/uL (130-400); RDW Coefficient of Variation 12.7 % (11.5-14.5); RDW Standard Deviation 40.8 fL (36.4-46.3); Red Blood Count 3.89 M/uL (4.70-6.10); White Blood Count 12.47 K/ul (4.8-10.8)
[2024-04-01 08:34] LABS: BUN Creatinine Ratio 18.8 (10-20); Calcium 8.7 mg/dl (8.6-10.3); Creatinine Clr Calc Pharmacy 108.5 ml/min; Est GFR (African American) 104.9 ml/min; Est GFR (Non-African American) 90.5 ml/min; Potassium 3.6 mmol/L (3.5-5.1)
--- NOTE | 2024-04-01 10:10 | Hospitalist Progress Note ---
Date of Service April 01, 2024 Assessment & Plan (1) Hematuria: Plan: Acute hematuria on the morning of 03/31 after removing urinary catheter; on Xarelto Hgb 15.0 on arrival - ow down to 11.8 - recheck this afternoon UA with 3+ blood; UA without infection on admission; recently completed levaquin outpatient for UTI - Elevated WBC will cover with Cipro Q 12 Xie catheter clotted --> Replaced with continuous bladder irrigation (CBI) Hold Xarelto Continue finasteride, doxazosin Urology consulted - monitor H&H, titrate CBI - maintain catheter for at least a week and void trial as outpatient - will need outpatient cystoscopy A.m. CBC, BMP (2) Self-catheterizes urinary bladder: (3) Hx pulmonary embolism: Plan: One in 2005, then Summer 2022 after surgery. - Xarelto held with urinary bleeding and drop of Hgb (4) Multiple allergies: Plan: Patient with multiple allergies, uses Benadryl frequently at home States zyrtecclairitn do not work as well for him - lost allergy follow up d/t COVID - recommend reestablish after discharge, will place referral Plan Disposition: Continued inpatient stay VTE PPx: Hold Xarelto; SCDs Admission and Anticipated Discharge Date Admission Date: March 31, 2024 Supervising Physician Co-Signing Physician Notes Attending Attestation - Chart reviewed, care plan d/w SHARDA Andersen. I agree w/ the taylor components of her documentation. Elliot Harris MD Subjective Patient lying in bed. Denies fevers and chills. Does report extensive hx of allergies, hx of allergy shots x 15 years and takes benadryl multiple times a day at home - his trigger symptoms is chest tighthness which he experienced with the ancef last night, resovled with benadryl Just completed a course of levofloxacin outpatient - was using benadryl with this and tolerating. reports urine color is getting vp hr diversity Review of Systems Review of Systems: All systems reviewed & are unremarkable except as noted in Subjective Physical Exam Physical Exam: General: NAD, VS as above Resp: normal respiratory effort, lungs clear to auscultation. excellent use of IS CV: RRR, no murmur, Abd: normal bowel sounds, non tender, no hepatosplenomegaly : xie intact, draining light red urine. Some blood around penis but dried, not bruising. Extremities: Moves all extremities, no edema Neuro: A&O x3, Skin: intact, no bruising. Results & Data Results & Data Vital Signs (Past 12 Hours) Vital Signs Temp Pulse Resp BP Pulse Ox O2 Del Method 04/01/24 06:54 36.6 C 64 16 129/78 95 Room Air Laboratory Results CBC and chemistry reviewed PG Care Time/CCT Total # of Minutes Spent Total Time Spent with Patient: Total time spent is greater than 50% in coordination of care (as documented) at patient's floor/unit and/or counseling patient: Coding Level of Care Code 43383 SUB INP/OBS CARE 3/50MIN Diagnoses Hematuria R31.0 Hematuria type: gross Self-catheterizes urinary bladder Z78.9 Hx pulmonary embolism Z86.711 Multiple allergies Z88.9 (1) Hematuria Hematuria type: gross Qualified Code(s): R31.0 - Gross hematuria
[2024-04-01] MEDS: CIPROFLOXACIN / D5W 400 MG/200 ML BAG IV SCH (10:11)
[2024-04-01] MEDS: diphenhydrAMINE Capsule 25 MG CAP PO PRN (10:11)
[2024-04-01 16:21] LABS: Basophils # (auto) 0.03 K/uL (0.00-0.20); Basophils % (auto) 0.3 %; Eosinophils # (auto) 0.12 K/uL (0.00-0.50); Hematocrit (blood only) 33.3 % (42.0-52.0); Hemoglobin 11.2 g/dl (14.0-18.0); Immature Granulocytes # (auto) 0.03 K/uL (0.01-0.20); Immature Granulocytes % (auto) 0.3 %; Lymphocytes # (auto) 2.06 K/uL (1.20-3.40); Lymphocytes % (auto) 17.5 %; Mean Corpuscular Hemoglobin 29.7 pg (25.0-34.0); Mean Corpuscular Hgb Conc 33.6 g/dL (32.0-36.0); Mean Corpuscular Volume 88.3 fL (80.0-100.0); Mean Platelet Volume 10.1 fL (9.4-12.4); Monocytes # (auto) 0.87 K/uL (0.11-0.59); Monocytes % (auto) 7.4 %; Neutrophils # (auto) 8.65 K/uL (1.40-6.50); Neutrophils % (auto) 73.5 %; Platelet Count 257 K/uL (130-400); RDW Coefficient of Variation 12.6 % (11.5-14.5); RDW Standard Deviation 40.4 fL (36.4-46.3); Red Blood Count 3.77 M/uL (4.70-6.10); White Blood Count 11.76 K/ul (4.8-10.8)
--- NOTE | 2024-04-02 15:26 | Discharge Summary ---
Discharge Summary Date of Service April 02, 2024 Principal Dx & Hospital Course #1 = Principal Diagnosis (1) Hematuria: Acute hematuria on the morning of 03/31 after removing urinary catheter; on Xarelto Hgb 15.0 on arrival - trended down to 11.2, stable at 12.2 day of discharge UA with 3+ blood; UA without infection on admission; recently completed levaquin outpatient for UTI - Cipro IV was started for elevated for WBC, discussed with Urology, no need for antibiotics at discharge Xie catheter clotted --> Replaced with continuous bladder irrigation (CBI), which has since been stopped. Keep xie in place Continue finasteride, doxazosin Urology consulted - monitor H&H, titrate CBI - maintain catheter for at least a week and void trial as outpatient - okay to resume Eliquis 04/02 - will need outpatient cystoscopy - does not need abx at discharge Patient able to discharge to home today with urology follow up. (2) Self-catheterizes urinary bladder: (3) Hx pulmonary embolism: One in 2005, then Summer 2022 after surgery. - Xarelto held with urinary bleeding and drop of Hgb --> okay to resume 04/02 (4) Multiple allergies: Patient with multiple allergies, uses Benadryl frequently at home States zyrtec/clairitn do not work as well for him - lost allergy follow up d/t COVID - recommend reestablish after discharge, will place referral Plan Disposition: Discharge to home today with urology follow up Notes For Next Care Provider Patient admitted after hematuria and difficulty placing catheter. Had catheter with CBI that was titrated off. Discharged with xie and will need urology follow up Allergy referral placed, patient needing to premedicate for all antibiotic administration Medication Changes From Visit None - resume Xarelto 04/02 Admission HPI Per Admitting Provider Ronny is a 68-year-old male with PMH of lumbar disc disease, bilateral PE (on Xarelto), sleep disorder, BPH, urinary retention, carpal tunnel, and [place]'s tenosynovitis. He presented on 03/31 for hematuria. Patient does report that he self catheterizes for his ongoing prostate problems, and has self catheterized 3 times in the past week. However last night he was urinating every hour, and attempted to self catheterize but may have pushed too hard, and believes he might have torn something. When he remove the catheter, he had bright red blood flowing from his penis. Patient does note he had a recent UTI for which he finished a 5-day course of Levaquin yesterday. He also notes he had a URI at the end of February and completed a course of doxycycline for this. Patient did not take his finasteride or doxazosin this morning. Last took Xarelto last night. He does endorse some straining with urination, dysuria, and lightheadedness when he gets up to go to the bathroom. Last BM was last night. He is on Xarelto for history of a PE. He denies smoking, tobacco use, or recent alcohol use. Patient's vital stable at time of admission. ED course: Ancef 3000mg IV NSS 1000mg IV x 2 ROS: Patient endorses dry cough (attributed to recent URI + abx), lightheadedness with walking, hematuria, dysuria, burning with urination (which patient a ttributes to recent catheters), nausea, and numbness in the groin region (which patient says is not new, has been intermittent since his back surgery). Patient denies fever, chills, night-sweats, chest pain, SOB, abdominal pain, vomiting, diarrhea, or blood in the stool. Discharge Exam General: NAD, VS as above Resp: normal respiratory effort, lungs clear to auscultation. excellent use of IS CV: RRR, no murmur, Abd: normal bowel sounds, non tender, no hepatosplenomegaly : xie intact, draining light red urine. Some blood around penis but dried, not bruising. Extremities: Moves all extremities, no edema Neuro: A&O x3, Skin: intact, no bruising. Updated Medication List Medication Instructions Recorded Confirmed Type diphenhydramine HCl 25 mg tablet 25 mg PO TID PRN Allergy Symptoms 01/22/23 03/31/24 History (Benadryl Allergy) albuterol sulfate 90 mcg/actuation 2 puff inhalation Q4H PRN 02/27/23 03/31/24 History aerosol inhaler Shortness Of Breath Or Wheezing acetaminophen 500 mg tablet 1,000 mg PO TID PRN Pain 07/03/23 03/31/24 History cholecalciferol (vitamin D3) 125 125 mcg PO DAILY 11/14/23 03/31/24 History mcg (5,000 unit) capsule doxazosin 2 mg tablet 2 mg PO QAM #90 tabs 11/14/23 03/31/24 Rx finasteride 5 mg tablet 5 mg PO QAM #90 tabs 11/14/23 03/31/24 Rx rivaroxaban 20 mg tablet (Xarelto) 20 mg PO HS 11/14/23 03/31/24 History levofloxacin 500 mg tablet 500 mg PO DAILY #10 tabs 03/16/24 03/31/24 Rx Hospital Stay Data Consultations 03/31/24 10:42 Consult Urology Stat 03/31/24 13:58 ED Decision to Admit Stat Total Time Total Time Spent Total Time Spent (In Minutes): Time spend day of discharge 40 minutes including direct patient care, medication reconciliation, documentation, review of labs and images, and coordination of care. Coding Level of Care Code 60081 INP/OBS DISCH >30 MIN Diagnoses Hematuria R31.0 Hematuria type: gross Self-catheterizes urinary bladder Z78.9 Hx pulmonary embolism Z86.711 Multiple allergies Z88.9
[2024-04-02 16:56] LABS: Basophils # (auto) 0.04 K/uL (0.00-0.20); Basophils % (auto) 0.4 %; Eosinophils % (auto) 0.9 %; Hematocrit (blood only) 36.5 % (42.0-52.0); Hemoglobin 12.2 g/dl (14.0-18.0); Immature Granulocytes # (auto) 0.25 K/uL (0.01-0.20); Immature Granulocytes % (auto) 2.3 %; Lymphocytes # (auto) 1.19 K/uL (1.20-3.40); Lymphocytes % (auto) 11.2 %; Mean Corpuscular Hgb Conc 33.4 g/dL (32.0-36.0); Mean Corpuscular Volume 89.9 fL (80.0-100.0); Mean Platelet Volume 10.2 fL (9.4-12.4); Monocytes # (auto) 0.65 K/uL (0.11-0.59); Monocytes % (auto) 6.1 %; Neutrophils # (auto) 8.42 K/uL (1.40-6.50); Neutrophils % (auto) 79.1 %; Platelet Count 254 K/uL (130-400); RDW Coefficient of Variation 12.6 % (11.5-14.5); RDW Standard Deviation 41.3 fL (36.4-46.3); Red Blood Count 4.06 M/uL (4.70-6.10); White Blood Count 10.65 K/ul (4.8-10.8)
[2024-04-02 20:06] LABS: Albumin Globulin Ratio 1.3 (0.9-2); Albumin Level 3.9 gm/dl (3.4-5.0); BUN Creatinine Ratio 14.5 (10-20); Calcium 9.1 mg/dl (8.6-10.3); Creatinine Clr Calc Pharmacy 104.5 ml/min; Est GFR (African American) 103.3 ml/min; Est GFR (Non-African American) 89.2 ml/min; Globulin 2.9 gm/dl (2.5-4.0); Potassium 4.1 mmol/L (3.5-5.1); Total Protein 6.8 gm/dl (6.0-8.3)
== END 2024-04-02 15:42 | disposition home or self-care (01) | DRG 696 ==
LOC: ED 06:24 → SUATTDRO 15:26 → 3W 15:26

== ENCOUNTER 2024-04-10 14:30 | Inpatient (IN) ==
--- NOTE | 2024-04-10 14:57 | Emergency Department Note ---
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 [facility] hospitalist team. Impression & Plan History of urinary retention, Acute UTI Discharge Plan Visit Data Chief Complaint: Illness Stated Complaint: Illness ED Provider: Matti Nails Discharge Problem: History of urinary retention, Acute UTI Patient Disposition: Admitted As Inpatient Discharge Instructions Interventions: ED Discharge Assessment Last Done: 04/10/24 19:58
[2024-04-10 15:04] LABS: Basophils # (auto) 0.05 K/uL (0.00-0.20); Basophils % (auto) 0.4 %; Eosinophils # (auto) 0.11 K/uL (0.00-0.50); Eosinophils % (auto) 0.8 %; Hematocrit (blood only) 34.9 % (42.0-52.0); Hemoglobin 11.8 g/dl (14.0-18.0); Immature Granulocytes # (auto) 0.07 K/uL (0.01-0.20); Immature Granulocytes % (auto) 0.5 %; Lymphocytes # (auto) 1.05 K/uL (1.20-3.40); Lymphocytes % (auto) 7.8 %; Mean Corpuscular Hemoglobin 29.9 pg (25.0-34.0); Mean Corpuscular Hgb Conc 33.8 g/dL (32.0-36.0); Mean Corpuscular Volume 88.6 fL (80.0-100.0); Mean Platelet Volume 9.8 fL (9.4-12.4); Monocytes % (auto) 6.7 %; Neutrophils % (auto) 83.8 %; Platelet Count 250 K/uL (130-400); RDW Coefficient of Variation 12.7 % (11.5-14.5); RDW Standard Deviation 40.9 fL (36.4-46.3); Red Blood Count 3.94 M/uL (4.70-6.10); White Blood Count 13.38 K/ul (4.8-10.8)
[2024-04-10 15:23] LABS: Albumin Level 4.2 gm/dl (3.4-5.0); BUN Creatinine Ratio 13.8 (10-20); Bilirubin Direct 0.2 mg/dl (0-0.2); Bilirubin,Total 0.8 mg/dl (0.2-1.0); Calcium 9.5 mg/dl (8.6-10.3); Creatinine Clr Calc Pharmacy 93.4 ml/min; Est GFR (African American) 94.8 ml/min; Est GFR (Non-African American) 81.8 ml/min; Magnesium 1.9 mg/dl (1.7-2.4); Potassium 4.3 mmol/L (3.5-5.1); Total Protein 7.2 gm/dl (6.0-8.3)
[2024-04-10] MEDS: SODIUM CHLORIDE 0.9% 1,000 ML IV ONE (15:26)
[2024-04-10 15:29] LABS: Troponin I High Sensitivity 25.4 pg/ml (0-20)
[2024-04-10 15:37] LABS: INR 1.1 (0.9-1.1); Partial Thromboplastin Ratio 1.2; Partial Thromboplastin Time 31 Seconds (21-31); Prothrombin Time 11.7 Seconds (9.0-12.0)
--- NOTE | 2024-04-10 15:41 | CT Scan Report ---
CT head/brain wo con CLINICAL HISTORY: 68 years-old Male with skaggs on xarelto. Acute headache TECHNIQUE: Multiple axial CT images of the head were obtained without contrast. A dose lowering tech nique was utilized adhering to the principles of ALARA. CT DOSE: 2149.2 mGy.cm COMPARISON: None. FINDINGS: No acute intracranial hemorrhage, midline shift, intracranial mass, hydrocephalus, territorial ischem ia or abnormal extra-axial collection. Involutional changes with chronic microvascular ischemic disea se. The calvarium is intact. Partially imaged polypoid mucosal thickening of the left maxillary sinus. R ight azra bullosa. IMPRESSION: No acute intracranial abnormality. ACT 112: Negative or not required by law. The above report was generated using voice recognition software. It may contain grammatical, syntax o r spelling errors. Electronically signed by: Christophe Osullivan M.D. 04/10/2024 3:39 PM
[2024-04-10] MEDS: ACETAMINOPHEN 1,000 MG/100 ML VIAL IV STA (15:42)
--- NOTE | 2024-04-10 15:50 | XRay Report ---
XR chest 1V portable HISTORY: 68 years-old Male Sepsis acute sepsis COMPARISON: 07/03/2023 TECHNIQUE: AP view of the chest FINDINGS: Cardiomediastinal silhouettes are within normal limits. Lungs are clear. No pneumothorax or pleural e ffusion. No acute fracture identified. IMPRESSION: No acute process. ACT 112: Negative or not required by law. The above report was generated using voice recognition software. It may contain grammatical, syntax o r spelling errors. Electronically signed by: Christophe Osullivan M.D. 04/10/2024 3:49 PM
--- NOTE | 2024-04-10 15:50 | CT Scan Report ---
ABDOMEN AND PELVIS CT WITHOUT CONTRAST HISTORY: Acute pelvic pain with difficulty urinating difficulty urinating TECHNIQUE: Multiaxial CT images of the abdomen and pelvis were performed without contrast. A dose lo wering technique was utilized adhering to the principles of ALARA. COMPARISON STUDY: 02/27/2023 FINDINGS: Trace right pleural effusion. Decreased attenuation of the cardiac blood pool suggestive of anemia. Mild dependent bibasilar atelectasis. No free air. The unenhanced spleen, pancreas and adren al glands are unremarkable. Contracted gallbladder with cholelithiasis. Fatty infiltration of the keenan er. Punctate nonobstructing calculus of the inferior pole left kidney. 2 mm nonobstructing calculus o f the inferior pole right kidney. Mild bilateral hydroureteronephrosis which is symmetric. Prostatome stalin. Circumferential wall thickening of the bladder with perivesicular stranding and intraluminal ai r. 1.2 x 0.8 cm lymph node anterior to the urinary bladder with additional smaller subcentimeter node s. Atherosclerosis of the aorta. No bowel obstruction or bowel wall thickening. Colonic diverticulosis. Moderate to extensive colonic fecal retention. Normal appendix. Diastases recti with small fat filled umbilical hernia. Degenerativ e and postoperative changes of the spine. IMPRESSION: 1. Prostamegaly with evidence of chronic bladder outlet obstruction. Correlate with urinalysis to exc lude cystitis. 2. Mild bilateral hydroureteronephrosis, likely secondary to the bladder outlet obstruction. 3. Nonobstructing bilateral nephrolithiasis. 4. Scattered lymph nodes adjacent to the urinary bladder are nonspecific, possibly reactive. Attentio n on follow-up recommended. 5. Constipation. 6. Cholelithiasis. 7. Additional findings as above. ACT 112: Negative or not required by law. The above report was generated using voice recognition software. It may contain grammatical, syntax o r spelling errors. Electronically signed by: Christophe Osullivan M.D. 04/10/2024 3:48 PM
[2024-04-10 15:56] LABS: Influenza A virus by PCR Negative (Neg); Influenza B virus by PCR Negative (Neg); RSV by PCR Negative (Neg); SARS CoV2 RNA(COVID-19) Ceph NEGATIVE (Negative)
[2024-04-10 16:16] LABS: Appearance Urine Cloudy (Clear); Bacteria Urine Automated 4+ (None Seen); Bilirubin Urine Negative (Negative); Blood Urine Trace (Negative); Cast Urine Automated 0-2 /lpf (0-2); Color Urine Yellow; Epithelial Cell Urine Auto 0-2 /hpf (0-2); Glucose Urine UA Negative (Negative); Ketones Urine Negative (Negative); Leukocyte Esterase Urine 3+ (Negative); Nitrite Urine Positive (Negative); Protein Urine Trace (Negative); Specific Gravity Urine 1.014 (1.000-1.030); Urobilinogen Urine Negative (Negative); WBC Urine Automated >50 /hpf (0-5)
[2024-04-10] MEDS: CIPROFLOXACIN / D5W 400 MG/200 ML BAG IV STA (16:57)
[2024-04-10] MEDS: diphenhydrAMINE Capsule 25 MG CAP PO ONE (17:16)
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
[2024-04-10] MEDS: DOXAZosin MESYLATE 4 MG TAB PO SCH (20:02)
[2024-04-10] MEDS: RIVAROXABAN 20 MG TAB PO SCH (20:02)
--- NOTE | 2024-04-10 20:50 | Electrocardiogram Report ---
Test Reason : Blood Pressure : / mmHG Vent. Rate : 101 BPM Atrial Rate : 101 BPM P-R Int : 156 ms QRS Dur : 092 ms QT Int : 332 ms P-R-T Axes : -01 065 022 degrees QTc Int : 430 ms Sinus tachycardia with frequent Premature ventricular complexes Incomplete right bundle branch block Nonspecific ST abnormality Abnormal ECG When compared with ECG of 03-JUL-2023 18:19, Premature ventricular complexes are now Present Confirmed by Brian Mcgraw ([id number]) on 04/10/2024 8:50:13 PM Referred By: REFERRED SELF Confirmed By:Brian Mcgraw
[2024-04-10] MEDS ORDERED: CIPROFLOXACIN / D5W 200 MG/100 ML BAG IV SCH (21:00)
[2024-04-11] MEDS: CIPROFLOXACIN / D5W 400 MG/200 ML BAG IV SCH (04:57)
[2024-04-11] MEDS: diphenhydrAMINE Capsule 25 MG CAP PO PRN (04:57)
[2024-04-11 06:43] LABS: Hematocrit (blood only) 31.7 % (42.0-52.0); Mean Corpuscular Hemoglobin 30.2 pg (25.0-34.0); Mean Corpuscular Hgb Conc 34.7 g/dL (32.0-36.0); Mean Corpuscular Volume 87.1 fL (80.0-100.0); Mean Platelet Volume 10.2 fL (9.4-12.4); Platelet Count 251 K/uL (130-400); RDW Coefficient of Variation 12.8 % (11.5-14.5); RDW Standard Deviation 40.7 fL (36.4-46.3); Red Blood Count 3.64 M/uL (4.70-6.10); White Blood Count 13.86 K/ul (4.8-10.8)
[2024-04-11 07:13] LABS: BUN Creatinine Ratio 11.4 (10-20); Calcium 8.8 mg/dl (8.6-10.3); Creatinine Clr Calc Pharmacy 111.2 ml/min; Est GFR (African American) 105.4 ml/min; Potassium 3.4 mmol/L (3.5-5.1)
[2024-04-11] MEDS: CHOLECALCIFEROL 125 MCG (5,000 UNITS) TAB PO SCH (08:15)
[2024-04-11] MEDS: FINASTERIDE 5 MG TAB PO SCH (08:15)
[2024-04-11] MEDS ORDERED: DOXAZosin MESYLATE TAB 2 MG TAB PO SCH (09:00)
[2024-04-11] MEDS: oxyBUTYnin chloride 5 MG TAB PO SCH (09:58)
[2024-04-11] MEDS: ADVANCED PROBIOTIC 625 MG CAPSULE PO SCH (11:19)
--- NOTE | 2024-04-11 12:13 | Hospitalist Progress Note ---
Date of Service April 11, 2024 Assessment & Plan (1) UTI (urinary tract infection) due to urinary indwelling catheter: Plan: Presents to the hospital on account of fever following urinary catheter Urinalysis shows evidence of UTI Urine cultures already obtained, Growing gram-negative bacilli, full characterization pending Patient is allergic to penicillin Will continue empiric IV ciprofloxacin IV normal saline 100 cc/h (2) Acute urinary retention: Plan: Urinary retention due to BPH Patient has started the process of self-catheterization Currently has Lawson catheter in situ Consult urology (3) Benign prostatic hyperplasia: Plan: Continue doxazosin 8 mg daily Also finasteride 5 mg daily (4) Bilateral pulmonary embolism: Plan: Patient has had pulmonary embolism twice Currently on Xarelto, will continue 20 mg daily Plan Continue hospitalization Full code Admission and Anticipated Discharge Date Admission Date: April 10, 2024 Subjective Patient seen and examined, feels overall better Review of Systems Review of Systems: All systems reviewed are negative, apart from the ones contained in the history. Physical Exam Physical Exam: The patient is awake, alert and oriented 3, well developed and well nourished, normocephalic and atraumatic, lying in bed and in no acute distress. HEENT--PERRL, EOMI, mucous membranes and oropharynx mildly dry Neck--supple. No JVD. No bruits. Thyroid normal, trachea midline, no adenopathy. Heart--normal S1 and S2. No murmurs, rubs or gallops. Lungs--clear bilaterally, no respiratory distress, no accessory muscle use. Abdomen--normal bowel sounds and soft. Extremities--no cyanosis or clubbing. No edema. Dermatologic--normal skin turgor, normal color, no abnormal lymph nodes, no rash. Neurologic--cranial nerves II through XII grossly intact. Rheumatologic--normal range of motion. Psychiatric--normal affect. Results & Data Results & Data Vital Signs (Past 12 Hours) Vital Signs Temp Pulse Resp BP Pulse Ox O2 Del Method 04/11/24 07:13 97.9 F 61 14 108/63 95 Room Air PG Care Time/CCT Total # of Minutes Spent Total Time Spent with Patient: Total time spent is greater than 50% in coordination of care (as documented) at patient's floor/unit and/or counseling patient: Coding Level of Care Code 64527 SUB INP/OBS CARE 2/35MIN Diagnoses UTI (urinary tract infection) due to urinary indwelling catheter T83.511A; N39.0 Acute urinary retention R33.8 Benign prostatic hyperplasia N40.0 Bilateral pulmonary embolism I26.99 Time Spent (min) 35
--- NOTE | 2024-04-12 08:57 | Urology Progress Note ---
Date of Service April 12, 2024 Assessment & Plan (1) Acute UTI: (2) Benign prostatic hyperplasia: (3) Acute urinary retention: Plan: Follow-up of acute UTI, urinary retention Patient is afebrile and hemodynamically stable No new labs at time of visit today Blood cultures with no growth x 24 hours Urine culture with E. coli ESBL Previously on ciprofloxacin, transitioned to Ertapenem today Maintain Lawson catheter Okay to gently hand irrigate catheter as needed for obstructed catheter Continue home doxazosin and finasteride Continue oxybutynin and Pyridium for bladder spasms/discomfort Plan to maintain Lawson catheter upon discharge Continue antibiotics per culture Will schedule outpatient surgical intervention with TURP after acute infection has been treated will follow peripherally, please contact our service with any additional questions or changes in clinical status Admission and Anticipated Discharge Date Admission Date: April 10, 2024 Subjective Patient seen and examined at bedside this morning He is awake and standing up in the room He reports sensation of urinary urgency and occasional discomfort Lawson patent and draining yellow urine with minimal pink-tinge Denies nausea, vomiting, fever or chills Review of Systems Constitutional: as per Subjective / HPI Genitourinary: + as per Subjective / HPI Physical Exam Constitutional: well developed and well nourished; no acute distress Respiratory: normal respiratory effort; no respiratory distress and no labored breathing Gastrointestinal (Abdomen): Inspection/Auscultation: abdomen normal to inspection Musculoskeletal: Head/Neck/Chest: normocephalic Neurologic: moves all extremities and awake Psychiatric: Orientation: alert and oriented x 3 Genitourinary: Lawson patent and draining yellow urine with minimal pink-tinge Results & Data Vital Signs (Past 12 Hours) Vital Signs Temp Pulse Resp BP Pulse Ox O2 Del Method 04/12/24 08:21 36.3 C L 88 20 102/68 96 Room Air PG Care Time/CCT Total # of Minutes Spent Total Time Spent with Patient: Total time spent is greater than 50% in coordination of care (as documented) at patient's floor/unit and/or counseling patient: Coding Level of Care Code 74848 SUB INP/OBS CARE 25MIN Diagnoses Acute UTI N39.0 Benign prostatic hyperplasia N40.0 Acute urinary retention R33.8
[2024-04-12] MEDS: ACETAMINOPHEN 325 MG TAB PO ONE (09:09)
[2024-04-12] MEDS: ERTAPENEM SODIUM 1,000 MG in SYRINGE 0 ML IV SCH (10:11)
--- NOTE | 2024-04-12 10:44 | Hospitalist Progress Note ---
Date of Service April 12, 2024 Assessment & Plan (1) Sepsis: Plan: Sepsis, present on admission Secondary to ESBL UTI Improving following antibiotics (2) UTI (urinary tract infection) due to urinary indwelling catheter: Plan: Presents to the hospital on account of fever following urinary catheter Urinalysis shows evidence of UTI Urine cultures already obtained, Growing ESBL Patient is allergic to penicillin Will Change antibiotic to IV ertapenem, Patient will need at least 5 days of IV ertapenem (3) Acute urinary retention: Plan: Urinary retention due to BPH Patient has started the process of self-catheterization Currently has Lawson catheter in situ Consult urology (4) Benign prostatic hyperplasia: Plan: Continue doxazosin 8 mg daily Also finasteride 5 mg daily (5) Bilateral pulmonary embolism: Plan: Patient has had pulmonary embolism twice Currently on Xarelto, will continue 20 mg daily Plan Continue hospitalization, Patient will need IV antibiotics for at least 5 days, will make arrangement for rehab Full code Admission and Anticipated Discharge Date Admission Date: April 10, 2024 Review of Systems Review of Systems: All systems reviewed are negative, apart from the ones contained in the history. Physical Exam Physical Exam: The patient is awake, alert and oriented 3, well developed and well nourished, normocephalic and atraumatic, lying in bed and in no acute distress. HEENT--PERRL, EOMI, mucous membranes and oropharynx mildly dry Neck--supple. No JVD. No bruits. Thyroid normal, trachea midline, no adenopathy. Heart--normal S1 and S2. No murmurs, rubs or gallops. Lungs--clear bilaterally, no respiratory distress, no accessory muscle use. Abdomen--normal bowel sounds and soft. Extremities--no cyanosis or clubbing. No edema. Dermatologic--normal skin turgor, normal color, no abnormal lymph nodes, no rash. Neurologic--cranial nerves II through XII grossly intact. Rheumatologic--normal range of motion. Psychiatric--normal affect. Results & Data Results & Data Vital Signs (Past 12 Hours) Vital Signs Temp Pulse Resp BP Pulse Ox O2 Del Method 04/12/24 08:21 97.3 F L 88 20 102/68 96 Room Air PG Care Time/CCT Total # of Minutes Spent Total Time Spent with Patient: Total time spent is greater than 50% in coordination of care (as documented) at patient's floor/unit and/or counseling patient: Coding Level of Care Code 79595 SUB INP/OBS CARE 235MIN Diagnoses Sepsis A41.9 UTI (urinary tract infection) due to urinary indwelling catheter T83.511A; N39.0 Acute urinary retention R33.8 Benign prostatic hyperplasia N40.0 Bilateral pulmonary embolism I26.99 Time Spent (min) 35
[2024-04-12] MEDS: PHENAZOPYRIDINE HCL 100 MG TAB PO PRN (12:49)
[2024-04-12] MEDS: ACETAMINOPHEN 500 MG TAB PO PRN (21:11)
[2024-04-13 07:33] LABS: Hematocrit (blood only) 30.6 % (42.0-52.0); Hemoglobin 10.5 g/dl (14.0-18.0); Mean Corpuscular Hemoglobin 29.6 pg (25.0-34.0); Mean Corpuscular Hgb Conc 34.3 g/dL (32.0-36.0); Mean Corpuscular Volume 86.2 fL (80.0-100.0); Mean Platelet Volume 10.2 fL (9.4-12.4); Platelet Count 302 K/uL (130-400); RDW Coefficient of Variation 12.9 % (11.5-14.5); RDW Standard Deviation 40.4 fL (36.4-46.3); Red Blood Count 3.55 M/uL (4.70-6.10)
[2024-04-13 07:52] LABS: BUN Creatinine Ratio 13.9 (10-20); Calcium 8.9 mg/dl (8.6-10.3); Creatinine Clr Calc Pharmacy 86.9 ml/min; Est GFR (African American) 86.9 ml/min; Potassium 3.5 mmol/L (3.5-5.1)
--- NOTE | 2024-04-13 10:20 | Hospitalist Progress Note ---
Date of Service April 13, 2024 Assessment & Plan (1) Sepsis: Plan: Sepsis, present on admission Secondary to ESBL UTI Improving following antibiotics (2) UTI (urinary tract infection) due to urinary indwelling catheter: Plan: Presents to the hospital on account of fever following urinary catheter Urinalysis shows evidence of UTI Urine cultures already obtained, Growing ESBL Patient is allergic to penicillin Will Change antibiotic to IV ertapenem, Patient will need at least 5 days of IV ertapenem, End date April 16, 2024 (3) Acute urinary retention: Plan: Urinary retention due to BPH Currently has Lawson catheter in situ Consult urology, For outpatient TURP (4) Benign prostatic hyperplasia: Plan: Continue doxazosin 8 mg daily Also finasteride 5 mg daily Outpatient follow-up with urology for TURP (5) Bilateral pulmonary embolism: Plan: Patient has had pulmonary embolism twice Currently on Xarelto, will continue 20 mg daily (6) Abdominal pain: Plan: Patient has some baseline abdominal pain, probably due to cystitis However experienced worsening left lower quadrant pain this morning Will obtain CT abdomen and pelvis Plan Continue hospitalization, Patient will need IV antibiotics for at least 5 days, will make arrangement for rehab Full code Admission and Anticipated Discharge Date Admission Date: April 10, 2024 Subjective Patient seen and examined, complained of worsening lower quadrant abdominal pain Review of Systems Review of Systems: All systems reviewed are negative, apart from the ones contained in the history. Physical Exam Physical Exam: The patient is awake, alert and oriented 3, well developed and well nourished, normocephalic and atraumatic, lying in bed and in no acute distress. HEENT--PERRL, EOMI, mucous membranes and oropharynx mildly dry Neck--supple. No JVD. No bruits. Thyroid normal, trachea midline, no adenopathy. Heart--normal S1 and S2. No murmurs, rubs or gallops. Lungs--clear bilaterally, no respiratory distress, no accessory muscle use. Abdomen--normal bowel sounds and soft. Mild left lower quadrant tenderness Extremities--no cyanosis or clubbing. No edema. Dermatologic--normal skin turgor, normal color, no abnormal lymph nodes, no rash. Neurologic--cranial nerves II through XII grossly intact. Rheumatologic--normal range of motion. Psychiatric--normal affect. Results & Data Results & Data Vital Signs (Past 12 Hours) Vital Signs Temp Pulse Resp BP Pulse Ox O2 Del Method 04/13/24 07:33 97.9 F 72 16 166/87 H 95 Room Air PG Care Time/CCT Total # of Minutes Spent Total Time Spent with Patient: Total time spent is greater than 50% in coordination of care (as documented) at patient's floor/unit and/or counseling patient: Coding Level of Care Code 42347 SUB INP/OBS CARE 2/35MIN Diagnoses Sepsis A41.9 UTI (urinary tract infection) due to urinary indwelling catheter T83.511A; N39.0 Acute urinary retention R33.8 Benign prostatic hyperplasia N40.0 Bilateral pulmonary embolism I26.99 Abdominal pain R10.9 Time Spent (min) 35
[2024-04-13] MEDS: diphenhydrAMINE Capsule 25 MG CAP PO PRN (11:03)
--- NOTE | 2024-04-13 11:51 | CT Scan Report ---
ABDOMEN AND PELVIS CT WITHOUT CONTRAST CT DOSE: 1344.28 mGy.cm HISTORY: Acute left lower quadrant abdominal pain LLQ abd pain TECHNIQUE: Multiaxial CT images of the abdomen and pelvis were performed without contrast. A dose lo wering technique was utilized adhering to the principles of ALARA. COMPARISON STUDY: 04/10/2024. FINDINGS: Trace pleural effusions with mild bibasilar atelectasis. Trace pericardial effusion. Decrea sed attenuation of the cardiac blood pool suggestive of anemia. No free air. The unenhanced spleen, pancreas and adrenal glands are unremarkable. Contracted gallbladder with chol elithiasis. Fatty infiltration of the liver. There are a few punctate nonobstructing calculi again no americo within the kidneys. Mild bilateral hydroureteronephrosis has progressed. Prostatomegaly. Circumfe rential wall thickening of the bladder with perivesicular stranding and intraluminal air. A Lawson cat heter is present with the balloon inflated within the prostatic urethra on image 321. Urinary bladder is distended measuring up to 17 cm in length. 1.2 x 0.8 cm lymph node anterior to the urinary bladde r with additional smaller subcentimeter nodes. Atherosclerosis of the aorta. No bowel obstruction or bowel wall thickening. Colonic diverticulosis. Moderate to extensive colonic fecal retention. Normal appendix. Diastases recti with small fat filled umbilical hernia. Degenerativ e and postoperative changes of the spine. IMPRESSION: 1. Prostamegaly with evidence of chronic bladder outlet obstruction. Correlate with urinalysis to exc lude cystitis. There is progressive distention of the urinary bladder with a Lawson catheter in place, inappropriately positioned with the balloon inflated within the prostatic urethra. Repositioning is needed. 2. Progressive bilateral hydroureteronephrosis, likely secondary to the bladder outlet obstruction. 3. Nonobstructing bilateral nephrolithiasis. 4. Scattered lymph nodes adjacent to the urinary bladder are nonspecific, possibly reactive. Attentio n on follow-up recommended. 5. Constipation. 6. Cholelithiasis. 7. Additional findings as above. ACT 112: Negative or not required by law. The above report was generated using voice recognition software. It may contain grammatical, syntax o r spelling errors. Electronically signed by: Christophe Osullivan M.D. 04/13/2024 11:50 AM
--- NOTE | 2024-04-13 20:18 | Communication Note ---
Date of Service: April 13, 2024 I was notified by nursing staff that patient had a CT scan showing malposition of the Lawson catheter. I received this notification at approximately 7:44 PM. I presented to the bedside within 15 minutes[address] The [address]'s [address] scan today showed that he had prostamegaly with evidence of chronic bladder outlet obstruction. There appeared to be distention of the urinary bladder with a Lawson catheter in place however the balloon appeared to be in the prostatic urethra. I presented to the bedside where the patient did appear to have some clear urine draining out of the Lawson catheter. The patient notes that he has had difficult Lawson placements in the past 1 time requiring a cystoscopy to place the Lawson catheter so he was hesitant to have any exchange the Lawson catheter. I therefore prepped the patient's penis and the existing Lawson catheter extensively with Betadine. I then applied some sterile lubrication to the end of the Lawson catheter. The Lawson catheter balloon was deflated and then the Lawson catheter was easily advanced further into the bladder. The Lawson catheter was advanced to the hub/bifurcation. With this maneuver a brisk flow of urine was obtained. Lawson catheter balloon was region flighted. The patient tolerated this well.
[2024-04-14 07:54] LABS: Hematocrit (blood only) 31.5 % (42.0-52.0); Hemoglobin 10.3 g/dl (14.0-18.0); Mean Corpuscular Hemoglobin 29.3 pg (25.0-34.0); Mean Corpuscular Hgb Conc 32.7 g/dL (32.0-36.0); Mean Corpuscular Volume 89.5 fL (80.0-100.0); Mean Platelet Volume 10.1 fL (9.4-12.4); Platelet Count 296 K/uL (130-400); RDW Coefficient of Variation 13.2 % (11.5-14.5); RDW Standard Deviation 43.2 fL (36.4-46.3); Red Blood Count 3.52 M/uL (4.70-6.10); White Blood Count 8.69 K/ul (4.8-10.8)
[2024-04-14 08:37] LABS: BUN Creatinine Ratio 13.3 (10-20); Calcium 8.6 mg/dl (8.6-10.3); Creatinine Clr Calc Pharmacy 83.6 ml/min; Est GFR (Non-African American) 71.6 ml/min; Potassium 3.4 mmol/L (3.5-5.1)
--- NOTE | 2024-04-14 11:30 | Hospitalist Progress Note ---
Date of Service April 14, 2024 Assessment & Plan (1) Sepsis: Plan: Sepsis, present on admission Secondary to ESBL UTI Improving following antibiotics (2) UTI (urinary tract infection) due to urinary indwelling catheter: Plan: Presents to the hospital on account of fever following urinary catheter Urinalysis shows evidence of UTI Urine cultures already obtained, Growing ESBL Patient is allergic to penicillin Will Change antibiotic to IV ertapenem, Patient will need at least 7 days of IV ertapenem, End date April 18, 2024 (3) Acute urinary retention: Plan: Urinary retention due to BPH Currently has Lawson catheter in situ Consult urology, For outpatient TURP (4) Benign prostatic hyperplasia: Plan: Continue doxazosin 8 mg daily Also finasteride 5 mg daily Outpatient follow-up with urology for TURP (5) Bilateral pulmonary embolism: Plan: Patient has had pulmonary embolism twice Currently on Xarelto, will continue 20 mg daily (6) Abdominal pain: Plan: Patient has some baseline abdominal pain, probably due to cystitis However experienced worsening left lower quadrant pain this morning Will obtain CT abdomen and pelvis Plan Continue hospitalization, Patient will need IV antibiotics for at least 7 days, Patient will prefer home health for antibiotics Full code Admission and Anticipated Discharge Date Admission Date: April 10, 2024 Subjective Patient seen and examined, Feels a whole lot better after his Lawson was repositioned by urology yesterday. Review of Systems Review of Systems: All systems reviewed are negative, apart from the ones contained in the history. Physical Exam Physical Exam: The patient is awake, alert and oriented 3, well developed and well nourished, normocephalic and atraumatic, lying in bed and in no acute distress. HEENT--PERRL, EOMI, mucous membranes and oropharynx mildly dry Neck--supple. No JVD. No bruits. Thyroid normal, trachea midline, no adenopathy. Heart--normal S1 and S2. No murmurs, rubs or gallops. Lungs--clear bilaterally, no respiratory distress, no accessory muscle use. Abdomen--normal bowel sounds and soft. Mild left lower quadrant tenderness Extremities--no cyanosis or clubbing. No edema. Dermatologic--normal skin turgor, normal color, no abnormal lymph nodes, no rash. Neurologic--cranial nerves II through XII grossly intact. Rheumatologic--normal range of motion. Psychiatric--normal affect. Results & Data Results & Data Vital Signs (Past 12 Hours) Vital Signs Temp Pulse Pulse Resp BP BP Pulse Ox 04/14/24 10:29 97.9 F 74 20 118/72 95 04/14/24 07:53 97.5 F L 59 L 59 L 17 114/68 97 O2 Del Method 04/14/24 10:29 Room Air 04/14/24 07:53 Room Air PG Care Time/CCT Total # of Minutes Spent Total Time Spent with Patient: Total time spent is greater than 50% in coordination of care (as documented) at patient's floor/unit and/or counseling patient: Coding Level of Care Code 09201 SUB INP/OBS CARE 2/35MIN Diagnoses Sepsis A41.9 UTI (urinary tract infection) due to urinary indwelling catheter T83.511A; N39.0 Acute urinary retention R33.8 Benign prostatic hyperplasia N40.0 Bilateral pulmonary embolism I26.99 Abdominal pain R10.9 Time Spent (min) 35
[2024-04-14] MEDS: SIMETHICONE 80 MG CHEW PO ONE (21:15)
[2024-04-14] MEDS: CALCIUM CARBONATE 500 MG CHEWABLE TAB PO PRN (21:15)
[2024-04-15 08:11] LABS: Hematocrit (blood only) 34.2 % (42.0-52.0); Mean Corpuscular Hemoglobin 28.9 pg (25.0-34.0); Mean Corpuscular Hgb Conc 32.2 g/dL (32.0-36.0); Mean Platelet Volume 9.9 fL (9.4-12.4); Platelet Count 321 K/uL (130-400); RDW Coefficient of Variation 13.2 % (11.5-14.5); RDW Standard Deviation 43.3 fL (36.4-46.3); White Blood Count 7.59 K/ul (4.8-10.8)
[2024-04-15 08:29] LABS: BUN Creatinine Ratio 18.1 (10-20); Calcium 9.2 mg/dl (8.6-10.3); Creatinine Clr Calc Pharmacy 105.8 ml/min; Est GFR (African American) 103.3 ml/min; Est GFR (Non-African American) 89.2 ml/min; Potassium 3.7 mmol/L (3.5-5.1)
--- NOTE | 2024-04-15 13:45 | Hospitalist Progress Note ---
Date of Service April 15, 2024 Assessment & Plan (1) Sepsis: Plan: Sepsis, present on admission Secondary to ESBL UTI Improving following antibiotics (2) UTI (urinary tract infection) due to urinary indwelling catheter: Plan: Presents to the hospital on account of fever following urinary catheter Urinalysis shows evidence of UTI Urine cultures already obtained, Growing ESBL Patient is allergic to penicillin Will Continue IV ertapenem, Patient will need at least 7 days of IV ertapenem, End date April 18, 2024 (3) Acute urinary retention: Plan: Urinary retention due to BPH Currently has Xie catheter in situ Consult urology, For outpatient TURP (4) Benign prostatic hyperplasia: Plan: Continue doxazosin 8 mg daily Also finasteride 5 mg daily Outpatient follow-up with urology for TURP (5) Bilateral pulmonary embolism: Plan: Patient has had pulmonary embolism twice Currently on Xarelto, will continue 20 mg daily (6) Abdominal pain: Plan: Patient has some baseline abdominal pain, probably due to cystitis However experienced worsening left lower quadrant pain this morning Will obtain CT abdomen and pelvis Plan Continue hospitalization, Patient will need IV antibiotics for at least 7 days, Patient will prefer home health for antibiotics, set up for tomorrow Full code Admission and Anticipated Discharge Date Admission Date: April 10, 2024 Subjective Patient seen and examined, Feels a whole lot better after his Xie was repositioned by urology, overnight, some blood tinge in his xie bag Review of Systems Review of Systems: All systems reviewed are negative, apart from the ones contained in the history. Physical Exam Physical Exam: The patient is awake, alert and oriented 3, well developed and well nourished, normocephalic and atraumatic, lying in bed and in no acute distress. HEENT--PERRL, EOMI, mucous membranes and oropharynx mildly dry Neck--supple. No JVD. No bruits. Thyroid normal, trachea midline, no adenopathy. Heart--normal S1 and S2. No murmurs, rubs or gallops. Lungs--clear bilaterally, no respiratory distress, no accessory muscle use. Abdomen--normal bowel sounds and soft. Mild left lower quadrant tenderness Extremities--no cyanosis or clubbing. No edema. Dermatologic--normal skin turgor, normal color, no abnormal lymph nodes, no rash. Neurologic--cranial nerves II through XII grossly intact. Rheumatologic--normal range of motion. Psychiatric--normal affect. Results & Data Results & Data Vital Signs (Past 12 Hours) Vital Signs Temp Pulse Resp BP Pulse Ox O2 Del Method 04/15/24 07:54 98.1 F 62 16 131/81 97 Room Air PG Care Time/CCT Total # of Minutes Spent Total Time Spent with Patient: Total time spent is greater than 50% in coordination of care (as documented) at patient's floor/unit and/or counseling patient: Coding Level of Care Code 90098 SUB INP/OBS CARE 2/35MIN Diagnoses Sepsis A41.9 UTI (urinary tract infection) due to urinary indwelling catheter T83.511A; N39.0 Acute urinary retention R33.8 Benign prostatic hyperplasia N40.0 Bilateral pulmonary embolism I26.99 Abdominal pain R10.9 Time Spent (min) 35
[2024-04-16 07:17] LABS: Hematocrit (blood only) 33.4 % (42.0-52.0); Mean Corpuscular Hemoglobin 29.2 pg (25.0-34.0); Mean Corpuscular Hgb Conc 32.9 g/dL (32.0-36.0); Mean Corpuscular Volume 88.6 fL (80.0-100.0); Mean Platelet Volume 9.9 fL (9.4-12.4); Platelet Count 336 K/uL (130-400); RDW Standard Deviation 41.9 fL (36.4-46.3); Red Blood Count 3.77 M/uL (4.70-6.10); White Blood Count 6.77 K/ul (4.8-10.8)
[2024-04-16 07:33] LABS: BUN Creatinine Ratio 15.3 (10-20); Calcium 9.1 mg/dl (8.6-10.3); Creatinine Clr Calc Pharmacy 89.6 ml/min; Est GFR (African American) 90.2 ml/min; Est GFR (Non-African American) 77.8 ml/min; Potassium 3.5 mmol/L (3.5-5.1)
--- NOTE | 2024-04-16 10:25 | Discharge Summary ---
Date of Service April 16, 2024 Admission HPI Per Admitting Provider Is a 68-year-old male with a history of pulmonary embolism on Xarelto BPH who was admitted to the hospital today on account of fever. About 10 days prior to presentation, patient was seen in the urologist office where a Lawson catheter was inserted following acute urinary retention and hematuria. A few days after he went back to the clinic for voiding trial. During that visit, he told the urologist that he has been able to pass urine although not been able to void completely. They made some adjustments to his doxazosin and the plan for for him to come back the following week for PVR. He was also told to come to the emergency department if he had a fever. He checked his temperature and was actually febrile so he came to the emergency department. Here in the ED, his temperature was 100.8 Fahrenheit and urinalysis showed evidence of UTI. WBC was 13,000. Urine cultures were obtained and he was empirically started on IV ciprofloxacin. He will be admitted to the hospital for further management. Admission Exam (Per Admitting) Constitutional The patient is awake, alert and oriented 3, well developed and well nourished, normocephalic and atraumatic, lying in bed and in no acute distress. HEENT--PERRL, EOMI, mucous membranes and oropharynx mildly dry Neck--supple. No JVD. No bruits. Thyroid normal, trachea midline, no adenop athy. Heart--normal S1 and S2. No murmurs, rubs or gallops. Lungs--clear bilaterally, no respiratory distress, no accessory muscle use. Abdomen--normal bowel sounds and soft. Extremities--no cyanosis or clubbing. No edema. Dermatologic--normal skin turgor, normal color, no abnormal lymph nodes, no rash. Neurologic--cranial nerves II through XII grossly intact. Rheumatologic--normal range of motion. Psychiatric--normal affect. Discharge Data Consultations 04/10/24 16:54 ED Decision to Admit Stat 04/10/24 18:35 Consult Urology Routine Hospital Course (1) Sepsis: Sepsis, present on admission Secondary to ESBL UTI Now resolved (2) UTI (urinary tract infection) due to urinary indwelling catheter: Presents to the hospital on account of fever following urinary catheter Urinalysis shows evidence of UTI Urine cultures already obtained, Growing ESBL Patient is allergic to penicillin Will Continue IV ertapenem, Patient will need at least 7 days of IV ertapenem, End date April 18, 2024 (3) Acute urinary retention: Urinary retention due to BPH Currently has Lawson catheter in situ Consult urology, For outpatient TURP (4) Benign prostatic hyperplasia: Continue doxazosin 8 mg daily Also finasteride 5 mg daily Outpatient follow-up with urology for TURP (5) Bilateral pulmonary embolism: Patient has had pulmonary embolism twice Currently on Xarelto, will continue 20 mg daily (6) Abdominal pain: Patient has some baseline abdominal pain, probably due to cystitis However experienced worsening left lower quadrant pain this morning Will obtain CT abdomen and pelvis Plan Discharge home on IV antibiotics, follow-up with urology Coding Level of Care Code 14162 INP/OBS DISCH >30 MIN Diagnoses Sepsis A41.9 UTI (urinary tract infection) due to urinary indwelling catheter T83.511A; N39.0 Acute urinary retention R33.8 Benign prostatic hyperplasia N40.0 Bilateral pulmonary embolism I26.99 Abdominal pain R10.9 Time Spent (min) 35
== END 2024-04-16 11:38 | disposition home health service (06) | DRG 698 ==
LOC: SUATTDRO → ED 14:30 → EDINP 17:43 → 3W 20:09

== ENCOUNTER 2024-09-04 21:25 | Inpatient (IN) ==
--- OUTSIDE RECORDS SUMMARY | 2024-09-04 21:28 | External Medical Summary | Summary of Care ---
Author Name Unknown Organization [facility] Address [address] [place] [address] Phone [phone] Care Team Providers Care Car Rental Sales Assistant Name Role Phone Kerwin Ortiz MD Primary Care Provide r Reason for Visit * Reason Comments Skin Check Pt presents for rout ine skin check, reports a few itchy spots on back otherwise no new concerns.Hx: NMSC, [place] Encounter Details Date Type Department Care Team (Late st Contact Info) Description 08/26/2024 10:40 AM EST Office Visit Dermatology [facility]endar[facility] [place] [address] [place] [address] Jazzy Harris PA-C [address] [place] [address] Skin exam, screening for cancer*; History of nonmelanoma skin cancer; Scar; Seborrheic keratosis; Actinic keratosis Allergies Active Allergy Reactions Criticality Noted Date Comments Amoxicillin 08/11/2006 Penicillins 05/05/2003 documented as of this encounter (statuses as of 08/26/2024) Medications PROSCAR 5 MG PO TABSIndications :BPH with obstruction/low er urinary tract symptoms one tablet daily 90 Tab 3 0 Active Additional Information Patient not taking.Reported on 08/26/2024 diphenhydrAMINE (BENADRYL ALLERGY) 25 MG Capsule Take 1 Capsule by mouth every 6 hours as needed for Itching. Active doxazosin (CARDURA) 2 MG Tablet Take 1 Tablet by mouth in the morning. 0 Active Vitamin K2-Vitamin D3 45-2000 MCG-UNIT Oral Capsule Take by mouth . Acti ve Xarelto 20 MG Oral Tablet Take 1 Tablet by mouth daily with dinner. 4 Active Vitamin D (Cholecalcifero l) 50 MCG (2000 UT) Oral Capsule Take by mouth. Activ e Multivitamin Adult Oral Tablet Take by mouth. Activ e Vitamin B-12 250 MCG Oral Tablet (Cyanocobalamin ) Take by mouth daily. Active documented as of this encounter (statuses as of 08/26/2024) Active Problems Problem Noted Date Diagnosed Date Hyposmia 12/29/2020 Hypertrophy of both inferior nasal turbinates [place] 12/29/2020 Allergic rhinitis 06/24/2017 History of basal cell carcinoma 10/12/2012 Overview (10/12/2012): right nasal tip Pulmonary embolus 05/06/2012 Overview (05/06/2012): May 2009 DVT of deep femoral vein 05/06/2012 Overview (05/06/2012): Lower extremity Intermittent asthma with reliever use up to twic e per week 04/22/2011 HTN, GOAL BELOW 140/90 08/03/2009 Overview (08/03/2009): Modified per HTN protocol #16. 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 Asthma with severity to be determined 05/05/2003 04/22/2011 Overview (12/25/2015): ICD-10 update of inactive term documented as of this encounter (statuses as of 08/26/2024) Immunizations Name Administration Dates Next Due Pneumococcal Polysaccharide PPV23 (Pneumovax) 08/16/2014 Seasonal Influenza Vac., MDV , IM, 0.5 mL (Fluzone) 05/31/2014,06/14/2013,06/08/2008 Seasonal Influenza, PF, 6 M & above, IM , (FluLaval or Fluzone) 06/03/2019,11/16/2018,06/10/2017 Seasonal Influenza, Quadriva lent, No Preserve, IM 07/05/2016,06/12/2015 07/05/2017 documented as of this encounter Social History Tobacco Use Types Packs/Day Years Used Date Smoking Tobacco: Never Smokeless Tobacco: Never Comments:Passive smoke expos ure as a child Both Parents smoked Alcohol Use Standard Drinks/Week Comments No 0 (1 standard drink = 0.6 oz pur e alcohol) Sex and Gender Information Value Date Recorded Sex Assigned at Not on file Legal Sex Male 6:12 AM EST Gender Identity Not on file Sexual Orientation Not on file documented as of this encounter Progress Notes * Jazzy Harris PA-C - 08/26/2024 10:55 AM EST SUBJECTIVE: History of Present Illness: Neil River is a 68 year old male seen today for follow up of skin check. 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 HEME/LYMPH: No new or enlarging lumps or bumps. MEDICA TIONS: Current Outpatient Medications Medication Sig Dispense Refill diphenhydrAMINE (BENADRYL ALLERGY) 25 MG Capsule Take 1 Capsule by mouth every 6 hours as needed for Itching. doxazosin (CARDURA) 2 MG Tablet Take 1 Tablet by mouth in the morning. Xarelto 20 MG Oral Tablet Take 1 Tablet by mouth daily with dinner. Vitamin D (Cholecalciferol) 50 MCG (2000 UT) Oral Capsule Take by mouth. Multivitamin Adult Oral Tablet Take by mouth. Vitamin B-12 250 MCG Oral Tablet (Cyanocobalamin) Take by mouth daily. PROSCAR 5 MG PO TABS one tablet daily (Patient not taking: Reported on 08/26/2024) 90 Tab 3 Vitamin K2-Vitamin D3 45-2000 MCG-UNIT Oral Capsule Take by mouth . (Patient not taking: Reported on 08/20/2023) No current facility-administered medications for this visit. ALLERG IES: Amoxicillin and Penicillins OBJECTIVE: GEN: Healthy, alert, no distress, appears oriented, pleasant, and cooperative. SKIN: Detailed exam of hair, face including lids and lips, neck, chest, abdomen, back, bilateral upper ext. (arm, hand, fingers), bilateral lower ext. (leg, foot, toes), and palpation of scalp completed and are normal except: 1. Scar- R nasal tip 2. L nasal tip, vertex- 3 keratotic pink papules 3. Back- waxy brown papules 4. R upper posterior leg- group of brown macules ASSESS MENT/PLAN: 1. Hx NMSC - no evidence of recurrence Discussed sun protection with patient including proper use of sunscreens and protective clothing. ABCDs explained 2. Aks. Cryosurgery explained to the patient, consent obtained, patient, site and procedure verified, and then cryotherapy was performed with Liquid Nitrogen via cryo spray unit to 3 lesions. Location noted in physical exam. Post op course explained. 3. Sks. Benign nature was discussed and no further intervention needed. Advised to call with any changes. 4. Nevus spilus. No change from last photos 2020 Discussed sun protection with patient including proper use of sunscreens (30spf, reapply every 2 hours) and protective clothing. Follow-up: 1 year There were no barriers tolearning and no other pain was related to today's visit. The patient and/or person accompanying patient demonstrates understanding of the visit and treatment. Jazzy Harris PA-C 08/26/2024 10:55 AM documented in this encounter Nursing Notes * Alisa Coy CMA - 08/26/2024 10:49 AM EST Chief Complaint Patient presents with Skin Check Pt presents for routine skin check, reports a few itchy spots on back otherwise no new concerns. Hx: NMSC, AK documented in this encounter Plan of Treatment Upcoming Encounters Date Type Department Care Team (Late st Contact Info) Description 09/02/2025 9:00 AM EST Office Visit Dermatology [facility] [place] [address] [facility] [place] [address] Jazzy Harris PA-C [address] [facility] [place] [address] Health Maintenance Due Date Last Done Comments GFR 1953 Lipid Panel 1953 Depression Screening 1965 Albumin/Creatinine Ratio 1971 Hepatitis C Screening 1971 DTap/Tdap Vaccines (1 - Tdap) 1972 Cologuard 1998 Colonoscopy 1998 Colorectal Cancer Screening 1998 Fecal Occult Blood Test 1998 Sigmoidoscopy 1998 Zoster Vaccines (1 of 2) 2003 Pneumococcal Vaccine: 65+ Years (2 of 2 - PCV) 08/16/2015 08/16/2014 COVID-19 Vaccine (4 - season) 2024 07/22/2022, 11/09/2020, 10/19/2020 Influenza Vaccine (FLU shot) (#1) 2024 06/03/2019, 11/16/2018, 06/10/2017, Additional history exists HPV (Gardasil) Vaccine Aged Out No lo nger eligible based on patient's age to complete this topic Hepatitis B Vaccine Aged Out No longe r eligible based on patient's age to complete this topic MENINGOCOCCAL (MENACTRA/MENVEO) Aged Out No longer eligible based on patient's age to complete this topic documented as of this encounter Medical Devices Not on filedocumented as of this encounter Visit Diagnoses Diagnosis Skin exam, screening for cancer- Primary Screening for malignant neoplasm of the skin History of nonmelanoma skin cancer Personal history of other malignant neoplasm of skin Scar Scar condition and fibrosis of skin Seborrheic keratosis Other seborrheic keratosis Actinic keratosis documented in this encounter Care Teams Car Rental Sales Assistant Relationship Specialty Start Date End Date Kerwin Ortiz MD [address] [facility] [address] [place] [address] PCP - General 05/05/03 documented as of this encounter
--- OUTSIDE RECORDS SUMMARY | 2024-09-04 21:28 | External Medical Summary | Summary of Care ---
Author Name Unknown Organization [facility] Address [address] [place] [address] Phone [phone] Care Team Providers Care Bowling Ball Grader Name Role Phone Kerwin Ortiz MD Primary Care Provide r Reason for Visit * Reason Comments Skin Check Pt presents for rout ine skin check, reports a few itchy spots on back otherwise no new concerns.Hx: NMSC, AK Encounter Details Date Type Department Care Team (Late st Contact Info) Description 08/26/2024 10:40 AM EST Office Visit Dermatology [facility] Armendar[facility] [place] [address] [place] [address] Jazzy Harris PA-C [address] [place] [address] Skin exam, screening for cancer*; History of nonmelanoma skin cancer; Scar; Seborrheic keratosis; Actinic keratosis Allergies Active Allergy Reactions Criticality Noted Date Comments Amoxicillin 08/11/2006 Penicillins 05/05/2003 documented as of this encounter (statuses as of 08/27/2024) Medications PROSCAR 5 MG PO TABSIndications :BPH [...] as of this encounter (statuses as of 08/27/2024) Active Problems Problem Noted Date Diagnosed Date [...] as of this encounter (statuses as of 08/27/2024) Resolved Problems Problem Noted Date Diagnosed Date Resolved Date HTN, goal to be determined 12/07/2007 1 10/03/2008 Overview (08/03/2009): Modified per HTN protocol #16. Asthma with severity to be determined 05/05/2003 04/22/2011 Overview (12/25/2015): ICD-10 update of inactive term documented as of this encounter (statuses as of 08/27/2024) Immunizations Name Administration Dates Next Due Pneumococcal [...] as of this encounter Progress Notes * Yazan Domingo MD - 08/27/2024 12:41 PM EST I have reviewed the charting notes and orders and associated images and agree with the assessment and plan of Jazzy Harris PA-C I was available for consultation during and after the visit Yazan Domingo MD 08/27/2024 12:41 PM * Jazzy Harris PA-C - 08/26/2024 10:55 [...] in a [employer] program Pro[facility] [place] REVIEW OF SYSTEMS: SKIN: No other [...] documented in this encounter Nursing Notes * Farooq Coy CMA - 08/26/2024 10:49 AM EST Chief Complaint Patient presents with Skin Check Pt presents for routine skin check, reports a few itchy spots on back otherwise no new concerns. Hx: NMSC, AK documented in this encounter Miscellaneous Notes * Addendum Note - Farooq Coy CMA - 08/26/2024 2:30 PM ESTAddended by: FAROOQ COY on: 08/26/2024 02:30 PM Modules accepted: Orders documented in this encounter Plan of Treatment Upcoming Encounters Date Type Department Care Team (Late st Contact Info) Description 09/02/2025 9:00 AM EST Office Visit Dermatology [facility] [address] [place] [address] Jazzy Harris PA-C [address] [facility] [address] Health Maintenance Due Date Last Done Comments GFR 1953 Lipid Panel 1953 Depression Screening 1965 Albumin/Creatinine Ratio 1971 Hepatitis C Screening 1971 DTap/Tdap Vaccines (1 - Tdap) 1972 Cologuard 1998 Colonoscopy 1998 Colorectal Cancer Screening 1998 Fecal Occult Blood Test 1998 Sigmoidoscopy 1998 Zoster Vaccines (1 of 2) 2003 Pneumococcal Vaccine: 65+ Years (2 of 2 - PCV) 08/16/2015 08/16/2014 COVID-19 Vaccine ( season) 2024 07/22/2022, 11/09/2020, 10/19/2020 Influenza Vaccine [...] Not on filedocumented as of this encounter Procedures Procedure Name Priority Date/Time Associated Diagnosis Comments DERM IMAGE (SITE) Routine 08/26/2024 Skin exam, screening for cancer History of nonmelanoma skin cancer Scar Seborrheic keratosis Actinic keratosis documented in this encounter Results * DERM IMAGE (SITE) (08/26/2024) 08/26/2024 Jazzy Harris PA-C DIGITAL PHOTOGRAPHY Ranulfo al Result documented in this encounter Visit Diagnoses Diagnosis Skin exam, screening for cancer- Primary Screening for malignant neoplasm of the skin History of nonmelanoma skin cancer Personal history of other malignant neoplasm of skin Scar Scar condition and fibrosis of skin Seborrheic keratosis Other seborrheic keratosis Actinic keratosis documented in this encounter Care Teams Bowling Ball Grader Relationship Specialty Start Date End Date Kerwin Ortiz MD [address] [place] [address] PCP - General 05/05/03 documented as of this encounter
--- OUTSIDE RECORDS SUMMARY | 2024-09-04 21:28 | External Medical Summary | Summary of Care ---
Author Name Unknown Organization [facility] Address [address] [place] [address] Phone [phone] Care Team Providers Care Bearing Inspector Name Role Phone Kerwin Ortiz MD Primary Care Provide r Reason for Visit * Reason Comments Skin Check Pt presents for rout ine skin check, reports a few itchy spots on back otherwise no new concerns.Hx: NMSC, AK Encounter Details Date Type Department Care Team (Late st Contact Info) Description 08/26/2024 10:40 AM EST Office Visit Dermatology [facility]endar[facility] [place] [address] [facility] [place] [address] Jazzy Harris PA-C [address] [facility] [place] [address] Skin exam, screening for cancer*; History of [...] in a [employer] program Prostate surgery at [facility] [place] REVIEW OF SYSTEMS: SKIN: [...] 09/02/2025 9:00 AM EST Office Visit Dermatology [facility] [address] [facility] [place] [address] Jazzy Harris PA-C [address] [facility] [place] [address] Health Maintenance Due Date Last Done Comments [...] keratosis documented in this encounter Care Teams Bearing Inspector Relationship Specialty Start Date End Date Kerwin Ortiz MD [address] [place] [address] PCP - General 05/05/03 documented as of this encounter
--- NOTE | 2024-09-04 21:51 | Emergency Department Note ---
Impression & Plan Complicated UTI (urinary tract infection), Indwelling Lawson catheter present, BPH with obstruction/lower urinary tract symptoms, Abdominal pain, History of ESBL E. coli infection ED Provider Note NAME: WALDEMAR RAMIREZ AGE: 68 SEX: M : 1955 ARRIVES VIA: Walk-In INFORMANT: Patient ED PROVIDER(S): Marck Lee MD CHIEF COMPLAINT: Fever, history of ESBL UTI. PLAN: Disposition: Admit MEDICAL DECISION MAKING: The patient is a pleasant 68-year-old gentleman with a past medical history of BPH with urinary retention with indwelling Lawson catheter, history of recurrent ESBL E. coli UTIs who presents to the emergency department via walk-in for evaluation of fever and headache that began today which concerned him given his history of urinary infections. He reports he is confident he has a UTI as his urine has appeared cloudy and has had sediment and blood. He reports mild lower abdominal pain. He is scheduled to have a prostatectomy at [facility] at the end of this month. He recently had a catheter exchanged a month ago but understood they were going to wait changing his catheter again until his procedure upcoming. Patient denies any cough, congestion. He denies nausea or vomiting. He denies diarrhea. On arrival the patient is no distress, afebrile with heart in the 110s and blood pressure 140s/80s and vital signs otherwise stable. Appears clinically dry. He has mild lower abdominal discomfort without discrete tenderness. Chest x-ray demonstrates bronchial wall thickening similar to prior. X-ray of the right shoulder obtained per patient's request as he reports straining his shoulder a couple of weeks ago when moving heavy boxes. This was negative for fracture or dislocation. WBC 11.9 K with neutrophilia but no left shift. Hemoglobin and platelets within normal limits. Chemistry without metabolic acidosis. Electrolytes and LFTs without significant abnormality. Lactic acid 1.3, within normal limits. Initial high styptic troponin 22, nonspecific with delta 2-hour HS troponin unchanged. Lipase is not elevated. Procalcitonin within normal limits. UA obtained following catheter exchange and demonstrates WBCs and leuk esterase but negative for nitrites or bacteria. Respiratory BioFire was negative. Blood cultures were obtained and patient was treated empirically with IV or ertapenem with pretreatment with Benadryl which the patient reports allows him to tolerate the medication as he did in April. Otherwise he describes a history of swelling sensation of his tongue and sinuses. CT of the abdomen/pelvis was performed and demonstrates thickening of the urinary bladder wall with Lawson catheter in place. Prostate gland is enlarged containing calcifications. Cholelithiasis is described. A 5 mm lucency in the right lobe of the liver may reflect a cyst. Findings are similar to prior imaging. Patient agrees to plan for admission for further management. Case was discussed with DAMION Mae hospitalist, who will evaluate the patient for admission. Further management per admitting team. Triage Nursing notes reviewed and agree them. Prior/external medical records reviewed Vital Signs: reviewed Differential diagnosis: Sepsis, UTI, pneumonia, metabolic, electrolyte abnormalities, cardiac sources, intracerebral event, toxicologic, neurologic, as well as other pathologies. ER treatment provided: See below. Diagnostics interpreted by me: Cardiac Monitoring: An order for continuous cardiac monitoring was placed and demonstrated normal sinus rhythm, 81 bpm, PACs. Laboratory studies: See below Imaging studies: See below Consultation(s): Case was discussed with DAMION Mae hospitalist, who will evaluate the patient for admission. HPI: The patient is a pleasant 68-year-old gentleman with a past medical history of BPH with urinary retention with indwelling Lawson catheter, history of recurrent ESBL E. coli UTIs who presents to the emergency department via walk-in for evaluation of fever and headache that began today which concerned him given his history of urinary infections. He reports he is confident he has a UTI as his urine has appeared cloudy and has had sediment and blood. He reports mild lower abdominal pain. He is scheduled to have a prostatectomy at [facility] at the end of this month. He recently had a catheter exchanged a month ago but understood they were going to wait changing his catheter again until his procedure upcoming. Patient denies any cough, congestion. He denies nausea or vomiting. He denies diarrhea. ROS: See above HPI for pertinent positives & negatives. A total of 10 systems reviewed and were otherwise negative. VITALS:See Below PHYSICAL EXAMINATION: GENERAL: Awake, alert, in no distress HENT: Normocephalic, atraumatic. Oropharynx with dry mucous membranes and otherwise unremarkable. . EYES: Normal conjunctiva. Sclera non-icteric. NECK: Supple. No nuchal rigidity. FROM. No JVD. RESPIRATORY: Clear to auscultation. CARDIAC: Tachycardic rate, normal rhythm. Extremities warm and well perfused. Pulses equal. ABDOMEN: Soft, non-distended. Mild lower abdominal discomfort without discrete tenderness to palpation. No rebound or guarding. : Indwelling Lawson catheter present. MUSCULOSKELETAL: Chest examination reveals no tenderness. The back is symmetrical on inspection without obvious abnormality. There is no CVA tenderness to palpation. No joint edema. LOWER EXTREMITIES: Calves are equal size bilaterally and non-tender. No edema. No discoloration. NEURO: Normal sensorium. No sensory or motor deficits noted. SKIN: No rash or jaundice noted. Marck Lee MD Past Med/Surg History Problem List (Updated 09/05/24 @ 07:37 by Marck Lee MD) History of ESBL E. coli infection (Acute) Abdominal pain (Acute) BPH with obstruction/lower urinary tract symptoms (Acute) Indwelling Lawson catheter present (Acute) Complicated UTI (urinary tract infection) (Acute) Hypertension Recurrent pulmonary embolism Constipation Impaired glucose tolerance (Chronic) UTI due to extended-spectrum beta lactamase (ESBL) producing Escherichia coli (Acute) History of urinary retention (Acute) Hematuria (Acute) Benign prostatic hyperplasia Allergic rhinitis Cardiomegaly Sleep disorder Hypertrophy of breast Lumbar disc disease De Quervain's tenosynovitis, left Bilateral carpal tunnel syndrome Tear of meniscus of left knee Left knee pain Medical History Allergic rhinitis Pulmonary nodule Anemia (03/2024) History of urinary retention Lawson catheter in place Arthritis Borderline diabetes History of COVID-19 Hx of basal cell carcinoma Hx pulmonary embolism Hx of deep venous thrombosis Gynecomastia, male BPH with obstruction/lower urinary tract symptoms Asthma Seasonal allergies Surgical History History of carpal tunnel surgery of right wrist Hx of left knee surgery H/O lumbosacral spine surgery History of cataract surgery H/O wisdom tooth extraction History of colonoscopy History of detached retina repair S/P Mohs surgery for basal cell carcinoma History of cardiac cath Family History Brother Diabetes Pancreatic cancer Sister Diabetes Nephrolithiasis Mother Hypertension Lung cancer Father Heart disease Other No family history of adverse response to anesthesia Social History Smoking Status: Never smoker Second Hand Exposure: Yes (growing up); Do You Dip or Chew Tobacco: No; Hx Alcohol Use: Yes Alcohol type: wine Alcohol Intake Frequency: Monthly or Less Hx Substance Use: No Preferred Language: Belarusian Communication Ability: Effective Visual Impairment: Limited Hearing Ability: Use of Hearing Aid Client Analyst Required: No Beliefs That Will Affect Care: None marital status: Current Living Situation: Family Current Living Situation Comment: son and current occupational status: employed How many Children do You have: 2 Other Information That Helps Us Care for You: No Feels Safe at Home: Yes Safety Concerns: Feels Safe At This Time Childhood Exposure to Second-Hand Smoke: Yes Diet: other and regular Diet Comment: Juicing occasionally caffeine: Yes Dental Care, Regularly: Yes Physical Activity Frequency: 3-4 Times per Week Seatbelt Use: always Sunscreen Use: Yes Assistive Devices: Glasses Allergies Allergies Allergy/AdvReac Type Severity Reaction Status Date / Time amoxicillin Allergy Severe Anaphylaxis Verified 09/04/24 22:40 ertapenem Allergy Severe Swelling Unverified 08/17/24 15:57 of tongue/sinuses Penicillins Allergy Severe Anaphylaxis Verified 09/04/24 22:40 grass pollen-perennial rye, Allergy Mild Sneezing Verified 08/17/24 15:57 standar mold Allergy Mild Sneezing Verified 08/17/24 15:57 pollen extracts Allergy Mild Sneezing Verified 08/17/24 15:57 cephalexin AdvReac Intermediate Gastrointestinal Verified 08/17/24 15:57 Upset scallops AdvReac Intermediate Diarrhea Verified 08/17/24 15:57 sulfamethoxazole AdvReac Intermediate itchiness, Verified 08/17/24 15:57 [From Bactrim] red eyes, stiff joints trimethoprim [From Bactrim] AdvReac Intermediate itchiness, Verified 08/17/24 15:57 red eyes, stiff joints Home Meds Home Medications Medication Instructions Recorded Confirmed methylcellulose (with sugar) oral 1 tbsp PO BID 08/17/24 09/04/24 powder (Citrucel (sucrose) oral powder) cholecalciferol (vitamin D3) 50 50 mcg PO DAILY 09/04/24 09/04/24 mcg (2,000 unit) capsule (Vitamin D3) cyanocobalamin (vitamin B-12) 250 250 mcg PO DAILY 09/04/24 09/04/24 mcg tablet (Vitamin B-12) diphenhydramine HCl 25 mg capsule 25 mg PO Q6 PRN Itching 09/04/24 09/04/24 doxazosin 8 mg tablet 8 mg PO QAM 09/04/24 09/04/24 multivitamin 1 tab PO DAILY 09/04/24 09/04/24 rivaroxaban 20 mg tablet (Xarelto) 20 mg PO QDD 09/04/24 09/04/24 Results & Data (ED) Vital Signs Vital Signs - 24 hr 09/04/24 21:31 09/04/24 22:24 09/04/24 22:31 Temperature 37.0 C Temperature Source Oral Pulse Rate 119 H 92 H Pulse Rate [Apical] 91 H Pulse Rate from SpO2 Sensor Respiratory Rate 19 15 Respiratory Effort / Characteristics Non-Labored Spontaneous Respiratory Depth Normal Blood Pressure 144/82 H Blood Pressure [Left Arm] 160/76 H Blood Pressure Mean 102 Blood Pressure Mean [Left Arm] 104 Pulse Oximetry 94 96 Oxygen Delivery Method Room Air Room Air Sepsis Recent Fever Within 48 Hours Yes Sepsis New/Unexplained Change in Mental Status No Sepsis Action Taken by Nursing No Action Required 09/05/24 00:20 09/05/24 00:51 09/05/24 01:00 Temperature Temperature Source Pulse Rate 81 85 81 Pulse Rate [Apical] Pulse Rate from SpO2 Sensor 61 81 Respiratory Rate 16 21 22 Respiratory Effort / Characteristics Respiratory Depth Blood Pressure 153/89 H Blood Pressure [Left Arm] Blood Pressure Mean 110 Blood Pressure Mean [Left Arm] Pulse Oximetry 97 95 96 Oxygen Delivery Method Sepsis Recent Fever Within 48 Hours Sepsis New/Unexplained Change in Mental Status Sepsis Action Taken by Nursing 09/05/24 01:00 09/05/24 01:24 09/05/24 01:30 Temperature Temperature Source Pulse Rate 88 Pulse Rate [Apical] Pulse Rate from SpO2 Sensor 83 Respiratory Rate 14 Respiratory Effort / Characteristics Respiratory Depth Blood Pressure 146/89 H 149/90 H Blood Pressure [Left Arm] Blood Pressure Mean 112 118 Blood Pressure Mean [Left Arm] Pulse Oximetry 95 Oxygen Delivery Method Sepsis Recent Fever Within 48 Hours Sepsis New/Unexplained Change in Mental Status Sepsis Action Taken by Nursing 09/05/24 01:30 Temperature Temperature Source Pulse Rate Pulse Rate [Apical] Pulse Rate from SpO2 Sensor Respiratory Rate Respiratory Effort / Characteristics Respiratory Depth Blood Pressure 149/90 H Blood Pressure [Left Arm] Blood Pressure Mean 118 Blood Pressure Mean [Left Arm] Pulse Oximetry Oxygen Delivery Method Sepsis Recent Fever Within 48 Hours Sepsis New/Unexplained Change in Mental Status Sepsis Action Taken by Nursing Laboratory Data Attestation: I reviewed the patient's lab results. 09/04/24 22:00 09/04/24 22:00 Lab Results 09/04/24 09/04/24 09/04/24 Range/Units 22:00 22:02 22:51 WBC 11.92 H (4.8-10.8) K/ul RBC 5.10 (4.70-6.10) M/uL Hgb 14.5 (14.0-18.0) g/dl POC Hgb (14.0-18.0) g/dl Hct 42.2 (42.0-52.0) % POC Hct (42-52) % MCV 82.7 (80.0-100.0) fL MCH 28.4 (25.0-34.0) pg MCHC 34.4 (32.0-36.0) g/dL RDW Std Deviation 47.0 H (36.4-46.3) fL RDW Coeff of Tri 15.4 H (11.5-14.5) % Plt Count 213 (130-400) K/uL MPV 9.9 (9.4-12.4) fL Immature Gran % (Auto) 0.3 % Neut % (Auto) 85.8 % Lymph % (Auto) 7.7 % [place] % (Auto) 5.7 % Eos % (Auto) 0.2 % Baso % (Auto) 0.3 % Neut # (Auto) 10.23 H (1.40-6.50) K/uL Lymph # (Auto) 0.92 L (1.20-3.40) K/uL [place] # (Auto) 0.68 H (0.11-0.59) K/uL Eos # (Auto) 0.02 (0.00-0.50) K/uL Baso # (Auto) 0.03 (0.00-0.20) K/uL Immature Gran # (Auto) 0.04 (0.01-0.20) K/uL PT 10.9 (9.0-12.0) Seconds INR 1.0 (0.9-1.1) POC Sodium (135-144) mmol/L Sodium 136 (136-145) mmol/L POC Potassium (3.3-5.0) mmol/L Potassium 3.9 (3.5-5.1) mmol/L POC Chloride (101-112) mmol/L Chloride 102 (98-107) mmol/L Carbon Dioxide 22 (21-32) mmol/L POC Total CO2 (24-31) mmol/L Anion Gap 12 H (3-11) POC Anion Gap (16-25) mmol/L POC BUN (7-18) mg/dl BUN 11 (6-23) mg/dl Creatinine 0.89 (0.6-1.4) mg/dl POC Creatinine (0.6-1.3) mg/dl Est Cr Clr Drug Dosing 97.2 ml/min eGFR 92.19 BUN/Creatinine Ratio 12.4 (10-20) Glucose 129 H (70-99(Fasting)) mg/dl POC Glucose (other) (70-99) mg/dl Lactate 1.3 (0.4-2.0) mmol/L Calcium 9.5 (8.6-10.3) mg/dl POC Ioniz Calcium Shruthi (1.12-1.32) mmol/l Magnesium 1.9 (1.7-2.4) mg/dl Total Bilirubin 0.7 (0.2-1.0) mg/dl AST 29 (13-39) U/L ALT 21 (7-52) U/L Alkaline Phosphatase 53 (34-104) U/L Troponin I High Sens 22.2 H (0-20) pg/ml Total Protein 7.6 (6.0-8.3) gm/dl Albumin 4.3 (3.4-5.0) gm/dl Globulin 3.3 (2.5-4.0) gm/dl Albumin/Globulin Ratio 1.3 (0.9-2) Lipase 27 (11-82) U/L Procalcitonin 0.08 (0-0.5) ng/ml Urine Color Yellow Urine Appearance Cloudy A (Clear) Urine pH 6.5 (4.5-7.5) Ur Specific [place] 1.012 (1.000-1.030) Urine Protein Negative (Negative) Urine Glucose (UA) Negative (Negative) Urine Ketones 1+ H (Negative) Urine Blood 1+ H (Negative) Urine Nitrite Negative (Negative) Urine Bilirubin Negative (Negative) Urine Urobilinogen Negative (Negative) Ur Leukocyte Esterase 3+ H (Negative) Urine WBC (Auto) >50 H (0-5) /hpf Urine RBC (Auto) 3-5 H (0-2) /hpf U Hyaline Cast (Auto) 11-20 H (0-2) /lpf U Epithel Cells (Auto) 0-2 (0-2) /hpf Urine Bacteria (Auto) None Seen (None Seen) Urine Yeast Present A (None Prsent) Adenovirus (PCR) Not Detected (NotDetected) B. pertussis DNA (PCR) Not Detected (NotDetected) B.parapertussis DNA PCR Not Detected (NotDetected) C. pneumoniae DNA (PCR) Not Detected (NotDetected) Coronavirus OC43 (PCR) Not Detected (NotDetected) Coronavirus HKU1 (PCR) Not Detected (NotDetected) Coronavirus 229E (PCR) Not Detected (NotDetected) SARS-CoV-2 (PCR) Not Detected (NotDetected) Coronavirus NL63 (PCR) Not Detected (NotDetected) Human Metapneumovir PCR Not Detected (NotDetected) Influenza Type A (PCR) Not Detected (NotDetected) Influenza Type B (PCR) Not Detected (NotDetected) M. pneumoniae (PCR) Not Detected (NotDetected) Parainfluenza 1 (PCR) Not Detected (NotDetected) Parainfluenza 2 (PCR) Not Detected (NotDetected) Parainfluenza 3 (PCR) Not Detected (NotDetected) Parainfluenza 4 (PCR) Not Detected (NotDetected) RSV (PCR) Not Detected (NotDetected) Entero/Rhino (PCR) Not Detected (NotDetected) 09/04/24 09/04/24 Range/Units 22:58 23:49 WBC (4.8-10.8) K/ul RBC (4.70-6.10) M/uL Hgb (14.0-18.0) g/dl POC Hgb 13.9 L (14.0-18.0) g/dl Hct (42.0-52.0) % POC Hct 41 L (42-52) % MCV (80.0-100.0) fL MCH (25.0-34.0) pg MCHC (32.0-36.0) g/dL RDW Std Deviation (36.4-46.3) fL RDW Coeff of Tri (11.5-14.5) % Plt Count (130-400) K/uL MPV (9.4-12.4) fL Immature Gran % (Auto) % Neut % (Auto) % Lymph % (Auto) % [place] % (Auto) % Eos % (Auto) % Baso % (Auto) % Neut # (Auto) (1.40-6.50) K/uL Lymph # (Auto) (1.20-3.40) K/uL [place] # (Auto) (0.11-0.59) K/uL Eos # (Auto) (0.00-0.50) K/uL Baso # (Auto) (0.00-0.20) K/uL Immature Gran # (Auto) (0.01-0.20) K/uL PT (9.0-12.0) Seconds INR (0.9-1.1) POC Sodium 138 (135-144) mmol/L Sodium (136-145) mmol/L POC Potassium 3.5 (3.3-5.0) mmol/L Potassium (3.5-5.1) mmol/L POC Chloride 101 (101-112) mmol/L Chloride (98-107) mmol/L Carbon Dioxide (21-32) mmol/L POC Total CO2 23 L (24-31) mmol/L Anion Gap (3-11) POC Anion Gap 19.0 (16-25) mmol/L POC BUN 11 (7-18) mg/dl BUN (6-23) mg/dl Creatinine (0.6-1.4) mg/dl POC Creatinine 0.9 (0.6-1.3) mg/dl Est Cr Clr Drug Dosing ml/min eGFR BUN/Creatinine Ratio (10-20) Glucose (70-99(Fasting)) mg/dl POC Glucose (other) 132 H (70-99) mg/dl Lactate (0.4-2.0) mmol/L Calcium (8.6-10.3) mg/dl POC Ioniz Calcium Shruthi 1.13 (1.12-1.32) mmol/l Magnesium (1.7-2.4) mg/dl Total Bilirubin (0.2-1.0) mg/dl AST (13-39) U/L ALT (7-52) U/L Alkaline Phosphatase (34-104) U/L Troponin I High Sens 22.0 H (0-20) pg/ml Total Protein (6.0-8.3) gm/dl Albumin (3.4-5.0) gm/dl Globulin (2.5-4.0) gm/dl Albumin/Globulin Ratio (0.9-2) Lipase (11-82) U/L Procalcitonin (0-0.5) ng/ml Urine Color Urine Appearance (Clear) Urine pH (4.5-7.5) Ur Specific [place] (1.000-1.030) Urine Protein (Negative) Urine Glucose (UA) (Negative) Urine Ketones (Negative) Urine Blood (Negative) Urine Nitrite (Negative) Urine Bilirubin (Negative) Urine Urobilinogen (Negative) Ur Leukocyte Esterase (Negative) Urine WBC (Auto) (0-5) /hpf Urine RBC (Auto) (0-2) /hpf U Hyaline Cast (Auto) (0-2) /lpf U Epithel Cells (Auto) (0-2) /hpf Urine Bacteria (Auto) (None Seen) Urine Yeast (None Prsent) Adenovirus (PCR) (NotDetected) B. pertussis DNA (PCR) (NotDetected) B.parapertussis DNA PCR (NotDetected) C. pneumoniae DNA (PCR) (NotDetected) Coronavirus OC43 (PCR) (NotDetected) Coronavirus HKU1 (PCR) (NotDetected) Coronavirus 229E (PCR) (NotDetected) SARS-CoV-2 (PCR) (NotDetected) Coronavirus NL63 (PCR) (NotDetected) Human Metapneumovir PCR (NotDetected) Influenza Type A (PCR) (NotDetected) Influenza Type B (PCR) (NotDetected) M. pneumoniae (PCR) (NotDetected) Parainfluenza 1 (PCR) (NotDetected) Parainfluenza 2 (PCR) (NotDetected) Parainfluenza 3 (PCR) (NotDetected) Parainfluenza 4 (PCR) (NotDetected) RSV (PCR) (NotDetected) Entero/Rhino (PCR) (NotDetected) Administered Medications Potassium Chloride/Sodium Chloride (Normal Saline W/20 Meq Kcl) 20 meq in 1,000 mls @ 80 mls/hr IV .[id number] MAL Stop: 09/05/24 14:14 Last Admin: 09/05/24 05:16 Dose: 80 mls/hr Documented By: CRISSY Fluconazole (Diflucan) 200 mg in 100 mls @ 100 mls/hr IV DAILY MAL Stop: 09/15/24 03:59 Last Infusion: 09/05/24 05:54 Dose: Infused Documented By: Admin: 09/05/24 04:41 Dose: 100 mls/hr Documented By: CRISSY Discontinued Medications Diphenhydramine HCl (Diphenhydramine 50 Mg/Ml Vial) 50 mg IV NOW STA Stop: 09/04/24 22:08 Last Admin: 09/04/24 22:32 Dose: 50 mg Documented By: HUGH Doxazosin Mesylate (Doxazosin Mesylate 4 Mg Tab) 4 mg PO NOW STA Stop: 09/05/24 01:30 Last Admin: 09/05/24 01:47 Dose: 4 mg Documented By: NATANAEL Ertapenem (Invanz 1000mg) 1,000 mg in 10 mls @ 2 mls/min IV NOW STA Stop: 09/04/24 22:06 Last Admin: 09/04/24 22:32 Dose: 2 mls/min Documented By: HUGH Sodium Chloride (Nss) 1,000 mls @ 999 mls/hr IV .[id number] ONE Stop: 09/04/24 23:49 Last Infusion: 09/05/24 00:25 Dose: Infused Documented By: Admin: 09/04/24 23:23 Dose: 999 mls/hr Documented By: NATANAEL Ioversol (Optiray 320 100ml) 94 ml IV ONCE ONE Stop: 09/04/24 23:12 Last Admin: 09/04/24 23:08 Dose: 94 ml Documented By: KRISTIE Lidocaine HCl (Lidocaine 2% Jelly 5 Ml Tube) Confirm Administered Dose 5 ml EXT .STK-MED ONE Stop: 09/04/24 22:32 Last Admin: 09/04/24 22:31 Dose: 5 ml Documented By: HUGH Rivaroxaban (Rivaroxaban 20 Mg Tab) 20 mg PO NOW STA Stop: 09/05/24 01:30 Last Admin: 09/05/24 01:47 Dose: 20 mg Documented By: LAF Imaging Data Radiologist's Impression: Chest X-Ray 09/04/24 22:02 EXAM: XR chest 1V portable CLINICAL HISTORY: FEVER. COUGH. TECHNIQUE: X-ray image of the chest is obtained in AP projection. COMPARISON: 04/10/2024 CR. FINDINGS: Pulmonary Parenchyma: Prominent perihilar bronchovascular markings. Peribronchial cuffing. Lungs are clear bilaterally. No evidence of consolidation, collapse, or focal opacities. No pulmonary nodules are identified. No evidence of pleural effusion or pleural thickening. Heart and Mediastinum: Heart size and shape are normal. No mediastinal widening or masses. No hilar or mediastinal lymphadenopathy. Bony Thorax: Degenerative changes of the visualized skeleton. Bony thorax appears intact without fractures or deformities. Soft Tissues: Soft tissues overlying the chest wall are unremarkable. IMPRESSION: 1. Redemonstration of prominent perihilar bronchovascular markings and peribronchial cuffing. Findings could be related to inflammatory or infection process. Need clinical correlation. 2. Otherwise, no significant interval changes compared to prior study dated on 04/10/2024. Electronically signed by Ana M Garcia 09-05-2024 02:13 AM Abdomen/Pelvis CT 09/04/24 22:50 Exam(s): CT ABDOMEN + PELVIS With Contrast IV Amt: 94 ml EXAM: CT Abdomen and Pelvis With Intravenous Contrast CLINICAL HISTORY: Reason for exam: abd pain, ?ESBL uti. TECHNIQUE: Axial computed tomography images of the abdomen and pelvis with intravenous contrast. Automated exposure control was utilized for the study. A dose lowering technique was utilized adhering to the principles of ALARA. CONTRAST: Patient received 94 ml of IV contrast COMPARISON: . FINDINGS: Lung bases: No consolidation. There is a small pericardial effusion. ABDOMEN: Liver: There is a 5 mm lucency noted in the right lobe of the liver.. Gallbladder and bile ducts: There is a 6 mm gallstone noted within the gallbladder.. No ductal dilation. Pancreas: . No mass. No ductal dilation. Spleen: No splenomegaly. Adrenals: No mass. Kidneys and ureters: No solid mass. No hydronephrosis. Stomach and bowel: The stomach is relatively decompressed. The colon is distended containing air and stool.. PELVIS: Appendix: Unremarkable CT scan appearance noted the appendix.. Bladder: A Lawson catheter is noted within the urinary bladder. There is thickening of the urinary bladder wall.. Reproductive: The prostate gland is enlarged containing calcifications.. ABDOMEN and PELVIS: Intraperitoneal space: No free air. No significant fluid collection. Bones/joints: There are degenerative and postoperative changes in the spine.. Soft tissues: Unremarkable. Vasculature: There are atherosclerotic changes.. No abdominal aortic aneurysm. Lymph nodes: No enlarged lymph nodes. IMPRESSION: A Lawson catheter is noted within the urinary bladder. There is thickening of the urinary bladder wall.. This may be due to hypertrophy. Cannot exclude cystitis. The prostate gland is enlarged containing calcifications.. Cholelithiasis. A 5 mm lucency in the right lobe of the liver may represent a cyst. Diverticulosis. Findings appears similar to previous exam Electronically signed by: Rolando Guerra MD 09/05/24 00:48 AM Shoulder X-Ray 09/05/24 00:01 EXAM: XR shoulder RT min 2V routine CLINICAL HISTORY: PAIN, INJURY 2 WEEKS AGO. TECHNIQUE: X-ray images of the right shoulder were obtained in anteroposterior (AP), lateral and Y-view projections. COMPARISON: No prior studies are available for comparison. FINDINGS: Bone Structure: Bone structure is normal and aligned. No evidence of fracture or dislocation. Humeral head is properly positioned in the glenoid fossa. No osseous lesions or abnormalities were identified. Joint Spaces: Degenerative changes of glenohumeral and acromioclavicular joints. Soft Tissues: Spots of soft tissue calcification seen superior to the humeral head likely ligamentous. IMPRESSION: 1. No evidence of acute fracture or dislocation. 2. Degenerative changes of the glenohumeral and acromioclavicular joints. Disclaimer: A subtle bone abnormality or fracture may not be readily apparent on X-rays, thus clinical correlation and further imaging including follow-up CT, MRI, or follow-up X-rays are advised as needed. Electronically signed by Ana M Garcia 09-05-2024 02:20 AM Discharge Plan Visit Data Chief Complaint: Catheter Replacement Stated Complaint: CATH ISSUE, POSSS SEPSIS ED Provider: Marck Lee Discharge Problem: Complicated UTI (urinary tract infection), Indwelling Lawson catheter present, BPH with obstruction/lower urinary tract symptoms, Abdominal pain, History of ESBL E. coli infection Patient Disposition: Admitted As Inpatient Discharge Instructions Interventions: ED Discharge Assessment Last Done: 09/05/24 02:48 Discharge Problem: Abdominal pain Qualifiers: Abdominal location: unspecified location Qualified Code(s): R10.9 - Unspecified abdominal pain
[2024-09-04 22:22] LABS: Basophils # (auto) 0.03 K/uL (0.00-0.20); Basophils % (auto) 0.3 %; Eosinophils # (auto) 0.02 K/uL (0.00-0.50); Eosinophils % (auto) 0.2 %; Hematocrit (blood only) 42.2 % (42.0-52.0); Hemoglobin 14.5 g/dl (14.0-18.0); Immature Granulocytes # (auto) 0.04 K/uL (0.01-0.20); Immature Granulocytes % (auto) 0.3 %; Lymphocytes # (auto) 0.92 K/uL (1.20-3.40); Lymphocytes % (auto) 7.7 %; Mean Corpuscular Hemoglobin 28.4 pg (25.0-34.0); Mean Corpuscular Hgb Conc 34.4 g/dL (32.0-36.0); Mean Corpuscular Volume 82.7 fL (80.0-100.0); Mean Platelet Volume 9.9 fL (9.4-12.4); Monocytes # (auto) 0.68 K/uL (0.11-0.59); Monocytes % (auto) 5.7 %; Neutrophils # (auto) 10.23 K/uL (1.40-6.50); Neutrophils % (auto) 85.8 %; Platelet Count 213 K/uL (130-400); RDW Coefficient of Variation 15.4 % (11.5-14.5); White Blood Count 11.92 K/ul (4.8-10.8)
[2024-09-04] MEDS: LIDOCAINE 2% JELLY 5 ML TUBE EXT ONE (22:31)
[2024-09-04] MEDS: diphenhydrAMINE 50 MG/ML VIAL IV STA (22:32)
[2024-09-04] MEDS: ERTAPENEM 1000MG 1,000 MG/10 ML SYR IV STA (22:32)
[2024-09-04 22:45] LABS: Prothrombin Time 10.9 Seconds (9.0-12.0)
[2024-09-04] MEDS: OPTIRAY 320 100ml IV ONE (23:08)
[2024-09-04 23:10] LABS: iSTAT Creatinine 0.9 mg/dl (0.6-1.3); iSTAT Hemoglobin 13.9 g/dl (14.0-18.0); iSTAT Ionized Calcium 1.13 mmol/l (1.12-1.32); iSTAT Potassium 3.5 mmol/L (3.3-5.0)
[2024-09-04 23:12] LABS: Adenovirus PCR Not Detected (NotDetected); Bordetella parapertussis PCR Not Detected (NotDetected); Bordetella pertussis PCR Not Detected (NotDetected); Chlamydia pneumoniae PCR Not Detected (NotDetected); Coronavirus 229E PCR Not Detected (NotDetected); Coronavirus CoV-2 (COVID19)PCR Not Detected (NotDetected); Coronavirus HKU1 PCR Not Detected (NotDetected); Coronavirus NL63 PCR Not Detected (NotDetected); Coronavirus OC43PCR Not Detected (NotDetected); Human Metapneumovirus PCR Not Detected (NotDetected); Influenza A PCR Not Detected (NotDetected); Influenza B PCR Not Detected (NotDetected); Mycoplasma pneumoniae PCR Not Detected (NotDetected); Parainfluenza Virus 1 PCR Not Detected (NotDetected); Parainfluenza Virus 2 PCR Not Detected (NotDetected); Parainfluenza Virus 3 PCR Not Detected (NotDetected); Parainfluenza Virus 4 PCR Not Detected (NotDetected); Respiratory Syncytial VirusPCR Not Detected (NotDetected); Rhinovirus/Enterovirus PCR Not Detected (NotDetected)
[2024-09-04 23:15] LABS: Appearance Urine Cloudy (Clear); Bacteria Urine Automated None Seen (None Seen); Bilirubin Urine Negative (Negative); Blood Urine 1+ (Negative); Color Urine Yellow; Epithelial Cell Urine Auto 0-2 /hpf (0-2); Glucose Urine UA Negative (Negative); Ketones Urine 1+ (Negative); Leukocyte Esterase Urine 3+ (Negative); Nitrite Urine Negative (Negative); Protein Urine Negative (Negative); Specific Gravity Urine 1.012 (1.000-1.030); Urobilinogen Urine Negative (Negative); WBC Urine Automated >50 /hpf (0-5); pH Urine 6.5 (4.5-7.5)
[2024-09-04 23:15] LABS: Troponin I High Sensitivity 22.2 pg/ml (0-20)
[2024-09-04] MEDS: SODIUM CHLORIDE 0.9% 1,000 ML IV ONE (23:23)
[2024-09-04 23:28] LABS: Albumin Globulin Ratio 1.3 (0.9-2); Albumin Level 4.3 gm/dl (3.4-5.0); BUN Creatinine Ratio 12.4 (10-20); Bilirubin,Total 0.7 mg/dl (0.2-1.0); Calcium 9.5 mg/dl (8.6-10.3); Creatinine Clr Calc Pharmacy 97.2 ml/min; Globulin 3.3 gm/dl (2.5-4.0); Magnesium 1.9 mg/dl (1.7-2.4); Potassium 3.9 mmol/L (3.5-5.1); Total Protein 7.6 gm/dl (6.0-8.3)
--- NOTE | 2024-09-05 00:48 | CT Scan Report ---
Exam(s): CT ABDOMEN + PELVIS With Contrast IV Amt: 94 ml EXAM: CT Abdomen and Pelvis With Intravenous Contrast CLINICAL HISTORY: Reason for exam: abd pain, ?ESBL uti. TECHNIQUE: Axial computed tomography images of the abdomen and pelvis with intravenous contrast. Automated exposure control was utilized for the study. A dose lowering technique was utilized adhering to the principles of ALARA. CONTRAST: Patient received 94 ml of IV contrast COMPARISON: . FINDINGS: Lung bases: No consolidation. There is a small pericardial effusion. ABDOMEN: Liver: There is a 5 mm lucency noted in the right lobe of the liver.. Gallbladder and bile ducts: There is a 6 mm gallstone noted within the gallbladder.. No ductal dilation. Pancreas: . No mass. No ductal dilation. Spleen: No splenomegaly. Adrenals: No mass. Kidneys and ureters: No solid mass. No hydronephrosis. Stomach and bowel: The stomach is relatively decompressed. The colon is distended containing air and stool.. PELVIS: Appendix: Unremarkable CT scan appearance noted the appendix.. Bladder: A Lawson catheter is noted within the urinary bladder. There is thickening of the urinary bladder wall.. Reproductive: The prostate gland is enlarged containing calcifications.. ABDOMEN and PELVIS: Intraperitoneal space: No free air. No significant fluid collection. Bones/joints: There are degenerative and postoperative changes in the spine.. Soft tissues: Unremarkable. Vasculature: There are atherosclerotic changes.. No abdominal aortic aneurysm. Lymph nodes: No enlarged lymph nodes. IMPRESSION: A Lawson catheter is noted within the urinary bladder. There is thickening of the urinary bladder wall.. This may be due to hypertrophy. Cannot exclude cystitis. The prostate gland is enlarged containing calcifications.. Cholelithiasis. A 5 mm lucency in the right lobe of the liver may represent a cyst. Diverticulosis. Findings appears similar to previous exam Electronically signed by: Rolando Guerra MD 09/05/24 00:48 AM
--- NOTE | 2024-09-05 01:43 | History & Physical Report ---
Date of Service September 05, 2024 Assessment & Plan (1) Complicated UTI (urinary tract infection): (2) Indwelling Lawson catheter present: (3) UTI due to extended-spectrum beta lactamase (ESBL) producing Escherichia coli: (4) Recurrent pulmonary embolism: (5) BPH with obstruction/lower urinary tract symptoms: (6) History of urinary retention: Plan Complicated UTI with ESBL E. coli/urinary retention secondary to BPH/chronic indwelling Lawson catheter- Likely developing early sepsis, and will therefore admit to monitored bed Symptoms likely aggravated by [facility] [place] and then back to [place] Follow urine culture and sensitivity Patient did receive ertapenem 1 g IV from the ED, and was given Benadryl by the ED to deal with potential throat swelling side effect, which he appears to not have at this point Status post 1 L normal saline bolus from the ED Maintenance fluids: NSS + KCl 20 mill equivalents at 80 mL/h x 1 L Lawson catheter was changed in the ED this evening History of multiple positive urine cultures on 04/10, 05/04,05/24, 06/12, 07/04, and 07/07/2024 Patient had preoperative testing at [facility] yesterday, and plans are for a robotic prostatectomy on 09/14/2024 Will have daytime team contact [facility], and coordinate ongoing care Ertapenem will cover him for potential infection for the next 24 hours Give his usual doxazosin 4 mg now, and at bedtime Continue Benadryl 50 mg IV every 4 hours as needed allergic symptoms Can discuss with [facility] changing to gentamicin IV He is aware that he may need a PICC line prior to discharge, if preference is to continue IV antibiotics up to the time of surgery CT abdomen and pelvis shows enlarged prostate, symptoms of urinary bladder wall thickening with possible cystitis, with no significant change compared to previous Yeast in urine- Follow culture and sensitivity For now placed on fluconazole 200 mg IV daily Recurrent pulmonary embolism/residual left lower extremity DVT- Continue Xarelto 20 mg daily give his evening dose now Troponin elevation- Initial troponin 22.2, with follow-up 22.0 Likely supply/demand mismatch, will recheck in the a.m. Right shoulder pain- Patient reports that he was doing activity in his right shoulder squatting little bit. X-ray shows mild degeneration, with no signs of fracture or History of Present Illness Chief Complaint: The patient presents to the emergency department with complaint of generalized weakness, fatigue, myalgias, lethargy over the past 24 hours. He had been to [facility] yesterday for for preoperative testing for a robotic prostatectomy planned on 09/14/2024. He reports that he had stopped off at [place] to do some shopping, and noted blood in his Lawson catheter at that time. He had clearing of the blood, but began to have the symptoms otherwise as noted. Due to worsening symptoms, he presents to the ED for assessment this evening. Primary Care Provider: Kerwin Ortiz MD The patient is a 68-year-old male with a past medical history including chronic indwelling Lawson catheter, BPH with LUTS, hypertension, complicated UTI with ESBL E. coli, cardiomegaly, B12 deficiency, on chronic anticoagulation for residual left lower extremity DVT, and recurrent pulmonary embolism. He presents to the emergency department with symptoms as noted above. He presented to the ED this evening, with report that he had developed a persistent temperature between 100-101 over the past several hours. Allergies Allergy/AdvReac Type Severity Reaction Status Date / Time amoxicillin Allergy Severe Anaphylaxis Verified 09/04/24 22:40 ertapenem Allergy Severe Swelling Unverified 08/17/24 15:57 of tongue/sinuses Penicillins Allergy Severe Anaphylaxis Verified 09/04/24 22:40 grass pollen-perennial rye, Allergy Mild Sneezing Verified 08/17/24 15:57 standar mold Allergy Mild Sneezing Verified 08/17/24 15:57 pollen extracts Allergy Mild Sneezing Verified 08/17/24 15:57 cephalexin AdvReac Intermediate Gastrointestinal Verified 08/17/24 15:57 Upset scallops AdvReac Intermediate Diarrhea Verified 08/17/24 15:57 sulfamethoxazole AdvReac Intermediate itchiness, Verified 08/17/24 15:57 [From Bactrim] red eyes, stiff joints trimethoprim [From Bactrim] AdvReac Intermediate itchiness, Verified 08/17/24 15:57 red eyes, stiff joints Home Medications Medication Instructions Recorded Confirmed Type methylcellulose (with sugar) oral 1 tbsp PO BID 08/17/24 09/04/24 History powder (Citrucel (sucrose) oral powder) cholecalciferol (vitamin D3) 50 50 mcg PO DAILY 09/04/24 09/04/24 History mcg (2,000 unit) capsule (Vitamin D3) cyanocobalamin (vitamin B-12) 250 250 mcg PO DAILY 09/04/24 09/04/24 History mcg tablet (Vitamin B-12) diphenhydramine HCl 25 mg capsule 25 mg PO Q6 PRN Itching 09/04/24 09/04/24 History doxazosin 8 mg tablet 8 mg PO QAM 09/04/24 09/04/24 History multivitamin 1 tab PO DAILY 09/04/24 09/04/24 History rivaroxaban 20 mg tablet (Xarelto) 20 mg PO QDD 09/04/24 09/04/24 History Past Med/Surg History Problem List (Updated 09/05/24 @ 03:29 by Rodney Werner MD) BPH with obstruction/lower urinary tract symptoms Indwelling Lawson catheter present (Acute) Complicated UTI (urinary tract infection) (Acute) Hypertension Recurrent pulmonary embolism Constipation Impaired glucose tolerance (Chronic) UTI due to extended-spectrum beta lactamase (ESBL) producing Escherichia coli (Acute) History of urinary retention (Acute) Hematuria (Acute) Benign prostatic hyperplasia Allergic rhinitis Cardiomegaly Sleep disorder Hypertrophy of breast Lumbar disc disease De Quervain's tenosynovitis, left Bilateral carpal tunnel syndrome Tear of meniscus of left knee Left knee pain Medical History Allergic rhinitis Pulmonary nodule Anemia (03/2024) History of urinary retention Lawson catheter in place Arthritis Borderline diabetes History of COVID-19 Hx of basal cell carcinoma Hx pulmonary embolism Hx of deep venous thrombosis Gynecomastia, male BPH with obstruction/lower urinary tract symptoms Asthma Seasonal allergies Surgical History History of carpal tunnel surgery of right wrist Hx of left knee surgery H/O lumbosacral spine surgery History of cataract surgery H/O wisdom tooth extraction History of colonoscopy History of detached retina repair S/P Mohs surgery for basal cell carcinoma History of cardiac cath Family History Brother Diabetes Pancreatic cancer Sister Diabetes Nephrolithiasis Mother Hypertension Lung cancer Father Heart disease Other No family history of adverse response to anesthesia Social History (Reviewed 06/15/24 @ 09:32 by GENIE Wells Smoking Status: Never smoker Second Hand Exposure: Yes (in the past); Do You Dip or Chew Tobacco: No; Hx Alcohol Use: No Hx Substance Use: No Preferred Language: Turkish Communication Ability: Effective Visual Impairment: Limited Hearing Ability: Use of Hearing Aid [employer] Required: No Beliefs That Will Affect Care: None marital status: Current Living Situation: Spouse Current Living Situation Comment: son and current occupational status: employed How many Children do You have: 2 Feels Safe at Home: Yes Childhood Exposure to Second-Hand Smoke: Yes Diet: other and regular Diet Comment: Juicing occasionally caffeine: Yes Dental Care, Regularly: Yes Physical Activity Frequency: 3-4 Times per Week Seatbelt Use: always Sunscreen Use: Yes Assistive Devices: Glasses Review of Systems Review of Systems: The patient denies chest pain, palpitations, shortness of breath, dyspnea on exertion, cough, sore throat, nausea, vomiting, diarrhea, blood in stool, lightheadedness, dizziness, headache, memory loss, loss of consciousness, imbalance, focal weakness, numbness or tingling in arms or legs, back or neck pa in, or night sweats. The review of systems is otherwise negative other than for that already noted above, and at least 10 systems have been reviewed. Physical Exam Physical Exam: The patient is awake, alert and oriented 3, well developed and well nourished, normocephalic and atraumatic, lying in bed and in no acute distress. HEENT--PERRL, EOMI, mucous membranes and oropharynx mildly dry. Neck--supple. No JVD. No bruits. Thyroid normal, trachea midline, no adenopathy. Heart--normal S1 and S2. No murmurs, rubs or gallops. Lungs--clear bilaterally, no respiratory distress, no accessory muscle use. Abdomen--normal bowel sounds and soft. Nontender. Nondistended, no hernias or masses, no organomegaly. Extremities--no cyanosis or clubbing. No edema. Dermatologic--normal skin turgor, normal color, no abnormal lymph nodes, no rash. Neurologic--cranial nerves II through XII grossly intact. Rheumatologic--normal range of motion. Psychiatric--normal affect. Results & Data Results & Data Vital Signs (Past 12 Hours) Vital Signs Temp Pulse Pulse Resp BP BP Pulse Ox 09/05/24 01:30 149/90 H 09/05/24 01:30 149/90 H 09/05/24 01:24 88 14 95 09/05/24 01:00 146/89 H 09/05/24 01:00 81 22 96 09/05/24 00:51 85 21 95 09/05/24 00:20 81 16 153/89 H 97 09/04/24 22:31 91 H 15 160/76 H 96 09/04/24 22:24 92 H 09/04/24 21:31 37.0 C 119 H 19 144/82 H 94 O2 Del Method 09/05/24 01:30 09/05/24 01:30 09/05/24 01:24 09/05/24 01:00 09/05/24 01:00 09/05/24 00:51 09/05/24 00:20 09/04/24 22:31 Room Air 09/04/24 22:24 09/04/24 21:31 Room Air Laboratory Results Laboratory Results WBC 11.92 K/ul (4.8-10.8) H 09/04/24 22:00 RBC 5.10 M/uL (4.70-6.10) 09/04/24 22:00 Hgb 14.5 g/dl (14.0-18.0) 09/04/24 22:00 POC Hgb 13.9 g/dl (14.0-18.0) L 09/04/24 22:58 Hct 42.2 % (42.0-52.0) 09/04/24 22:00 POC Hct 41 % (42-52) L 09/04/24 22:58 MCV 82.7 fL (80.0-100.0) 09/04/24 22:00 MCH 28.4 pg (25.0-34.0) 09/04/24 22:00 MCHC 34.4 g/dL (32.0-36.0) 09/04/24 22:00 RDW Std Deviation 47.0 fL (36.4-46.3) H 09/04/24 22:00 RDW Coeff of Tri 15.4 % (11.5-14.5) H 09/04/24 22:00 Plt Count 213 K/uL (130-400) 09/04/24 22:00 MPV 9.9 fL (9.4-12.4) 09/04/24 22:00 Immature Gran % (Auto) 0.3 % 09/04/24 22:00 Neut % (Auto) 85.8 % 09/04/24 22:00 Lymph % (Auto) 7.7 % 09/04/24 22:00 Treasure % (Auto) 5.7 % 09/04/24 22:00 Eos % (Auto) 0.2 % 09/04/24 22:00 Baso % (Auto) 0.3 % 09/04/24 22:00 Neut # (Auto) 10.23 K/uL (1.40-6.50) H 09/04/24 22:00 Lymph # (Auto) 0.92 K/uL (1.20-3.40) L 09/04/24 22:00 Treasure # (Auto) 0.68 K/uL (0.11-0.59) H 09/04/24 22:00 Eos # (Auto) 0.02 K/uL (0.00-0.50) 09/04/24 22:00 Baso # (Auto) 0.03 K/uL (0.00-0.20) 09/04/24 22:00 Immature Gran # (Auto) 0.04 K/uL (0.01-0.20) 09/04/24 22:00 PT 10.9 Seconds (9.0-12.0) 09/04/24 22:00 INR 1.0 (0.9-1.1) 09/04/24 22:00 POC Sodium 138 mmol/L (135-144) 09/04/24 22:58 Sodium 136 mmol/L (136-145) 09/04/24 22:00 POC Potassium 3.5 mmol/L (3.3-5.0) 09/04/24 22:58 Potassium 3.9 mmol/L (3.5-5.1) 09/04/24 22:00 POC Chloride 101 mmol/L (101-112) 09/04/24 22:58 Chloride 102 mmol/L (98-107) 09/04/24 22:00 Carbon Dioxide 22 mmol/L (21-32) 09/04/24 22:00 POC Total CO2 23 mmol/L (24-31) L 09/04/24 22:58 Anion Gap 12 (3-11) H 09/04/24 22:00 POC Anion Gap 19.0 mmol/L (16-25) 09/04/24 22:58 POC BUN 11 mg/dl (7-18) 09/04/24 22:58 BUN 11 mg/dl (6-23) 09/04/24 22:00 Creatinine 0.89 mg/dl (0.6-1.4) 09/04/24 22:00 POC Creatinine 0.9 mg/dl (0.6-1.3) 09/04/24 22:58 Est Cr Clr Drug Dosing 97.2 ml/min 09/04/24 22:00 eGFR 92.19 09/04/24 22:00 BUN/Creatinine Ratio 12.4 (10-20) 09/04/24 22:00 Glucose 129 mg/dl (70-99(Fasting)) H 09/04/24 22:00 POC Glucose (other) 132 mg/dl (70-99) H 09/04/24 22:58 Lactate 1.3 mmol/L (0.4-2.0) 09/04/24 22:00 Calcium 9.5 mg/dl (8.6-10.3) 09/04/24 22:00 POC Ioniz Calcium Shruthi 1.13 mmol/l (1.12-1.32) 09/04/24 22:58 Magnesium 1.9 mg/dl (1.7-2.4) 09/04/24 22:00 Total Bilirubin 0.7 mg/dl (0.2-1.0) 09/04/24 22:00 AST 29 U/L (13-39) 09/04/24 22:00 ALT 21 U/L (7-52) 09/04/24 22:00 Alkaline Phosphatase 53 U/L (34-104) 09/04/24 22:00 Troponin I High Sens 22.0 pg/ml (0-20) H 09/04/24 23:49 Total Protein 7.6 gm/dl (6.0-8.3) 09/04/24 22:00 Albumin 4.3 gm/dl (3.4-5.0) 09/04/24 22:00 Globulin 3.3 gm/dl (2.5-4.0) 09/04/24 22:00 Albumin/Globulin Ratio 1.3 (0.9-2) 09/04/24 22:00 Lipase 27 U/L (11-82) 09/04/24 22:00 Procalcitonin 0.08 ng/ml (0-0.5) 09/04/24 22:00 Urine Color Yellow 09/04/24 22:51 Urine Appearance Cloudy (Clear) A 09/04/24 22:51 Urine pH 6.5 (4.5-7.5) 09/04/24 22:51 Ur Specific [place] 1.012 (1.000-1.030) 09/04/24 22:51 Urine Protein Negative (Negative) 09/04/24 22:51 Urine Glucose (UA) Negative (Negative) 09/04/24 22:51 Urine Ketones 1+ (Negative) H 09/04/24 22:51 Urine Blood 1+ (Negative) H 09/04/24 22:51 Urine Nitrite Negative (Negative) 09/04/24 22:51 Urine Bilirubin Negative (Negative) 09/04/24 22:51 Urine Urobilinogen Negative (Negative) 09/04/24 22:51 Ur Leukocyte Esterase 3+ (Negative) H 09/04/24 22:51 Urine WBC (Auto) >50 /hpf (0-5) H 09/04/24 22:51 Urine RBC (Auto) 3-5 /hpf (0-2) H 09/04/24 22:51 U Hyaline Cast (Auto) 11-20 /lpf (0-2) H 09/04/24 22:51 U Epithel Cells (Auto) 0-2 /hpf (0-2) 09/04/24 22:51 Urine Bacteria (Auto) None Seen (None Seen) 09/04/24 22:51 Urine Yeast Present (None Prsent) A 09/04/24 22:51 Adenovirus (PCR) Not Detected (NotDetected) 09/04/24 22:02 B. pertussis DNA (PCR) Not Detected (NotDetected) 09/04/24 22:02 B.parapertussis DNA PCR Not Detected (NotDetected) 09/04/24 22:02 C. pneumoniae DNA (PCR) Not Detected (NotDetected) 09/04/24 22:02 Coronavirus OC43 (PCR) Not Detected (NotDetected) 09/04/24 22:02 Coronavirus HKU1 (PCR) Not Detected (NotDetected) 09/04/24 22:02 Coronavirus 229E (PCR) Not Detected (NotDetected) 09/04/24 22:02 SARS-CoV-2 (PCR) Not Detected (NotDetected) 09/04/24 22:02 Coronavirus NL63 (PCR) Not Detected (NotDetected) 09/04/24 22:02 Human Metapneumovir PCR Not Detected (NotDetected) 09/04/24 22:02 Influenza Type A (PCR) Not Detected (NotDetected) 09/04/24 22:02 Influenza Type B (PCR) Not Detected (NotDetected) 09/04/24 22:02 M. pneumoniae (PCR) Not Detected (NotDetected) 09/04/24 22:02 Parainfluenza 1 (PCR) Not Detected (NotDetected) 09/04/24 22:02 Parainfluenza 2 (PCR) Not Detected (NotDetected) 09/04/24 22:02 Parainfluenza 3 (PCR) Not Detected (NotDetected) 09/04/24 22:02 Parainfluenza 4 (PCR) Not Detected (NotDetected) 09/04/24 22:02 RSV (PCR) Not Detected (NotDetected) 09/04/24 22:02 Entero/Rhino (PCR) Not Detected (NotDetected) 09/04/24 22:02 Impressions Chest X-Ray 09/04/24 22:02 EXAM: XR chest 1V portable CLINICAL HISTORY: FEVER. COUGH. TECHNIQUE: X-ray image of the chest is obtained in AP projection. COMPARISON: 04/10/2024 CR. FINDINGS: Pulmonary Parenchyma: Prominent perihilar bronchovascular markings. Peribronchial cuffing. Lungs are clear bilaterally. No evidence of consolidation, collapse, or focal opacities. No pulmonary nodules are identified. No evidence of pleural effusion or pleural thickening. Heart and Mediastinum: Heart size and shape are normal. No mediastinal widening or masses. No hilar or mediastinal lymphadenopathy. Bony Thorax: Degenerative changes of the visualized skeleton. Bony thorax appears intact without fractures or deformities. Soft Tissues: Soft tissues overlying the chest wall are unremarkable. IMPRESSION: 1. Redemonstration of prominent perihilar bronchovascular markings and peribronchial cuffing. Findings could be related to inflammatory or infection process. Need clinical correlation. 2. Otherwise, no significant interval changes compared to prior study dated on 04/10/2024. Electronically signed by Ana M Garcia 09-05-2024 02:13 AM Abdomen/Pelvis CT 09/04/24 22:50 Exam(s): CT ABDOMEN + PELVIS With Contrast IV Amt: 94 ml EXAM: CT Abdomen and Pelvis With Intravenous Contrast CLINICAL HISTORY: Reason for exam: abd pain, ?ESBL uti. TECHNIQUE: Axial computed tomography images of the abdomen and pelvis with intravenous contrast. Automated exposure control was utilized for the study. A dose lowering technique was utilized adhering to the principles of ALARA. CONTRAST: Patient received 94 ml of IV contrast COMPARISON: . FINDINGS: Lung bases: No consolidation. There is a small pericardial effusion. ABDOMEN: Liver: There is a 5 mm lucency noted in the right lobe of the liver.. Gallbladder and bile ducts: There is a 6 mm gallstone noted within the gallbladder.. No ductal dilation. Pancreas: . No mass. No ductal dilation. Spleen: No splenomegaly. Adrenals: No mass. Kidneys and ureters: No solid mass. No hydronephrosis. Stomach and bowel: The stomach is relatively decompressed. The colon is distended containing air and stool.. PELVIS: Appendix: Unremarkable CT scan appearance noted the appendix.. Bladder: A Lawson catheter is noted within the urinary bladder. There is thickening of the urinary bladder wall.. Reproductive: The prostate gland is enlarged containing calcifications.. ABDOMEN and PELVIS: Intraperitoneal space: No free air. No significant fluid collection. Bones/joints: There are degenerative and postoperative changes in the spine.. Soft tissues: Unremarkable. Vasculature: There are atherosclerotic changes.. No abdominal aortic aneurysm. Lymph nodes: No enlarged lymph nodes. IMPRESSION: A Lawson catheter is noted within the urinary bladder. There is thickening of the urinary bladder wall.. This may be due to hypertrophy. Cannot exclude cystitis. The prostate gland is enlarged containing calcifications.. Cholelithiasis. A 5 mm lucency in the right lobe of the liver may represent a cyst. Diverticulosis. Findings appears similar to previous exam Electronically signed by: Rolando Guerra MD 09/05/24 00:48 AM Shoulder X-Ray 09/05/24 00:01 EXAM: XR shoulder RT min 2V routine CLINICAL HISTORY: PAIN, INJURY 2 WEEKS AGO. TECHNIQUE: X-ray images of the right shoulder were obtained in anteroposterior (AP), lateral and Y-view projections. COMPARISON: No prior studies are available for comparison. FINDINGS: Bone Structure: Bone structure is normal and aligned. No evidence of fracture or dislocation. Humeral head is properly positioned in the glenoid fossa. No osseous lesions or abnormalities were identified. Joint Spaces: Degenerative changes of glenohumeral and acromioclavicular joints. Soft Tissues: Spots of soft tissue calcification seen superior to the humeral head likely ligamentous. IMPRESSION: 1. No evidence of acute fracture or dislocation. 2. Degenerative changes of the glenohumeral and acromioclavicular joints. Disclaimer: A subtle bone abnormality or fracture may not be readily apparent on X-rays, thus clinical correlation and further imaging including follow-up CT, MRI, or follow-up X-rays are advised as needed. Electronically signed by Ana M Garcia 09-05-2024 02:20 AM Code Status & VTE Plan Code Status Full code VTE Prophylaxis Plan VTE Prophylaxis will be ordered: Yes PG Care Time/CCT Total # of Minutes Spent Total Time Spent with Patient: Total time spent is greater than 50% in coordination of care (as documented) at patient's floor/unit and/or counseling patient: Coding Level of Care Code 72868 INT INP/OBS CARE 3/75MIN Diagnoses Complicated UTI (urinary tract infection) N39.0 Indwelling Lawson catheter present Z97.8 UTI due to extended-spectrum beta lactamase (ESBL) producing Escherichia coli N39.0; B96.29; Z16.12 Recurrent pulmonary embolism I26.99 BPH with obstruction/lower urinary tract symptoms N40.1; N13.8 History of urinary retention Z87.898
[2024-09-05] MEDS: DOXAZosin MESYLATE 4 MG TAB PO STA (01:47)
[2024-09-05] MEDS: RIVAROXABAN 20 MG TAB PO STA (01:47)
--- NOTE | 2024-09-05 02:13 | XRay Report ---
EXAM: XR chest 1V portable CLINICAL HISTORY: FEVER. COUGH. TECHNIQUE: X-ray image of the chest is obtained in AP projection. COMPARISON: 04/10/2024 CR. FINDINGS: Pulmonary Parenchyma: Prominent perihilar bronchovascular markings. Peribronchial cuffing. Lungs are clear bilaterally. No evidence of consolidation, collapse, or focal opacities. No pulmonary nodules are identified. No evidence of pleural effusion or pleural thickening. Heart and Mediastinum: Heart size and shape are normal. No mediastinal widening or masses. No hilar or mediastinal lymphadenopathy. Bony Thorax: Degenerative changes of the visualized skeleton. Bony thorax appears intact without fractures or deformities. Soft Tissues: Soft tissues overlying the chest wall are unremarkable. IMPRESSION: 1. Redemonstration of prominent perihilar bronchovascular markings and peribronchial cuffing. Findings could be related to inflammatory or infection process. Need clinical correlation. 2. Otherwise, no significant interval changes compared to prior study dated on 04/10/2024. Electronically signed by Ana M Garcia 09-05-2024 02:13 AM
--- NOTE | 2024-09-05 02:20 | XRay Report ---
EXAM: XR shoulder RT min 2V routine CLINICAL HISTORY: PAIN, INJURY 2 WEEKS AGO. TECHNIQUE: X-ray images of the right shoulder were obtained in anteroposterior (AP), lateral and Y-view projections. COMPARISON: No prior studies are available for comparison. FINDINGS: Bone Structure: Bone structure is normal and aligned. No evidence of fracture or dislocation. Humeral head is properly positioned in the glenoid fossa. No osseous lesions or abnormalities were identified. Joint Spaces: Degenerative changes of glenohumeral and acromioclavicular joints. Soft Tissues: Spots of soft tissue calcification seen superior to the humeral head likely ligamentous. IMPRESSION: 1. No evidence of acute fracture or dislocation. 2. Degenerative changes of the glenohumeral and acromioclavicular joints. Disclaimer: A subtle bone abnormality or fracture may not be readily apparent on X-rays, thus clinical correlation and further imaging including follow-up CT, MRI, or follow-up X-rays are advised as needed. Electronically signed by Ana M Garcia 09-05-2024 02:20 AM
[2024-09-05] MEDS ORDERED: diphenhydrAMINE 50 MG/ML VIAL IV PRN (03:17)
[2024-09-05] MEDS ORDERED: diphenhydrAMINE Capsule 25 MG CAP PO PRN (03:17)
[2024-09-05] MEDS: FLUCONAZOLE 200 MG/100 ML BAG IV SCH (04:41)
[2024-09-05] MEDS: NSS + 20MEQ KCL 20 MEQ/1,000 ML BAG IV SCH (05:16)
[2024-09-05 07:50] LABS: Basophils # (auto) 0.02 K/uL (0.00-0.20); Basophils % (auto) 0.2 %; Eosinophils # (auto) 0.05 K/uL (0.00-0.50); Eosinophils % (auto) 0.5 %; Hematocrit (blood only) 39.1 % (42.0-52.0); Hemoglobin 13.5 g/dl (14.0-18.0); Immature Granulocytes # (auto) 0.02 K/uL (0.01-0.20); Immature Granulocytes % (auto) 0.2 %; Lymphocytes # (auto) 1.19 K/uL (1.20-3.40); Lymphocytes % (auto) 12.6 %; Mean Corpuscular Hemoglobin 28.7 pg (25.0-34.0); Mean Corpuscular Hgb Conc 34.5 g/dL (32.0-36.0); Mean Platelet Volume 10.6 fL (9.4-12.4); Monocytes # (auto) 0.63 K/uL (0.11-0.59); Monocytes % (auto) 6.7 %; Neutrophils # (auto) 7.51 K/uL (1.40-6.50); Neutrophils % (auto) 79.8 %; Platelet Count 198 K/uL (130-400); RDW Coefficient of Variation 15.4 % (11.5-14.5); RDW Standard Deviation 47.2 fL (36.4-46.3); Red Blood Count 4.71 M/uL (4.70-6.10); White Blood Count 9.42 K/ul (4.8-10.8)
[2024-09-05] MEDS: MULTIVITAMIN TAB PO SCH (08:14)
[2024-09-05] MEDS: CHOLECALCIFEROL 25 MCG (1000 UNITS) TAB PO SCH (08:14)
[2024-09-05] MEDS: CYANOCOBALAMIN (B-12) 500 MCG TABLET PO SCH (08:17)
[2024-09-05] MEDS: METHYLCELLULOSE POWDER 454 GM JAR PO SCH (08:17)
[2024-09-05 08:56] LABS: Troponin I High Sensitivity 27.5 pg/ml (0-20)
[2024-09-05 09:13] LABS: Albumin Level 3.9 gm/dl (3.4-5.0); BUN Creatinine Ratio 11.1 (10-20); Calcium 9.1 mg/dl (8.6-10.3); Creatinine Clr Calc Pharmacy 98.7 ml/min; Phosphorus 2.8 mg/dl (2.5-4.9); Potassium 3.8 mmol/L (3.5-5.1)
--- NOTE | 2024-09-05 09:52 | Communication Note ---
Date of Service: September 05, 2024 Pt seen and examined. H&P reviewed. ID consulted, awaiting urine C&S.
[2024-09-05] MEDS: RIVAROXABAN 20 MG TAB PO SCH (17:19)
[2024-09-05] MEDS: DOXAZosin MESYLATE 4 MG TAB PO SCH (19:31)
[2024-09-05] MEDS: ACETAMINOPHEN 325 MG TAB PO PRN (19:31)
[2024-09-05] MEDS ORDERED: GENTAMICIN CONSULT ACTIVE PRN (19:37)
[2024-09-05] MEDS: GENTAMICIN SULFATE 440 MG in DEXTROSE 5% 100 ML IV ONE (22:59)
--- NOTE | 2024-09-06 01:40 | Communication Note ---
Date of Service: September 06, 2024 At approximately 19:30 I was notified by nursing that the patient was inquiring about his course of antibiotics and whether he would be receiving more antibiotics this evening. Upon chart review, I noted that the patient received ertapenem in the ED on the evening of 09/04, patient has documented allergy to ertapenem and received Benadryl to address adverse side effects experienced with its administration. Patient tolerated this administration with the Benadryl. The hospitalist note from 09/05 does not specifically detail the ongoing plan for an tibiotics, however infectious disease consult was ordered. I discussed the case with the attending physician, it was decided to order gentamicin in the interim while awaiting infectious disease consultation as I would like to avoid additional doses of ertapenem with his documented allergy. 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 I was later notified by the patient's nurse that he would discuss this further with the [facility] (where he receives ongoing care) and the daytime hospitalist. Resident Activity Tracking Resident Involvement: Resident Care Provided Care Provided: Adult Hospital Medicine
[2024-09-06 06:24] LABS: Basophils # (auto) 0.03 K/uL (0.00-0.20); Basophils % (auto) 0.4 %; Eosinophils # (auto) 0.13 K/uL (0.00-0.50); Eosinophils % (auto) 1.7 %; Hematocrit (blood only) 41.1 % (42.0-52.0); Hemoglobin 14.1 g/dl (14.0-18.0); Immature Granulocytes # (auto) 0.02 K/uL (0.01-0.20); Immature Granulocytes % (auto) 0.3 %; Lymphocytes # (auto) 1.68 K/uL (1.20-3.40); Lymphocytes % (auto) 21.6 %; Mean Corpuscular Hemoglobin 28.7 pg (25.0-34.0); Mean Corpuscular Hgb Conc 34.3 g/dL (32.0-36.0); Mean Corpuscular Volume 83.5 fL (80.0-100.0); Mean Platelet Volume 10.3 fL (9.4-12.4); Monocytes # (auto) 0.84 K/uL (0.11-0.59); Monocytes % (auto) 10.8 %; Neutrophils # (auto) 5.06 K/uL (1.40-6.50); Neutrophils % (auto) 65.2 %; Platelet Count 207 K/uL (130-400); RDW Coefficient of Variation 15.4 % (11.5-14.5); RDW Standard Deviation 47.1 fL (36.4-46.3); Red Blood Count 4.92 M/uL (4.70-6.10); White Blood Count 7.76 K/ul (4.8-10.8)
[2024-09-06 06:44] LABS: Albumin Level 4.2 gm/dl (3.4-5.0); BUN Creatinine Ratio 13.3 (10-20); Calcium 9.6 mg/dl (8.6-10.3); Creatinine Clr Calc Pharmacy 96.3 ml/min; Magnesium 2.1 mg/dl (1.7-2.4); Phosphorus 2.8 mg/dl (2.5-4.9); Potassium 4.4 mmol/L (3.5-5.1)
--- NOTE | 2024-09-06 08:39 | Hospitalist Progress Note ---
Date of Service September 06, 2024 Assessment & Plan (1) Complicated UTI (urinary tract infection): Plan: BPH, associated with chronic indwelling xie ESBL in the past. 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 coli scheduled for robotic prostatectomy September 14 at the [facility]. Presents with early sepsis complicated UTI -Follow urine culture and sensitivity. Great resolution of symptoms status post antibiotics and catheter exchange Patient did receive ertapenem 1 g IV from the ED, (listed allergy to same) was given Benadryl to blunt mild systemic reaction patient is agreeable to continuing with ertapenem pretreated with Benadryl 50, will need to arrange ultrasound-guided catheter and home IV antibiotics to carry him through his upcoming procedure Xie catheter was changed in the ED on presentation History of multiple positive urine cultures on 04/10, 05/04,05/24, 06/12, 07/04, and 07/07/2024 Patient had preoperative testing at [facility] 09/04, and plans are for a robotic prostatectomy on 09/14/2024 I personally did contact [facility], and spoke to his urologist to coordinate ongoing care there is report of continuing IV antibiotics until the upcoming procedure continue doxazosin 4 mg now, [facility] did not feel it would be warranted to continue antifungal treatment although this was recommended by infectious disease consultation 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 X-ray shows mild degeneration, with no signs of fracture or Admission and Anticipated Discharge Date Admission Date: September 05, 2024 Subjective Patient feels much better almost back to his normal baseline Need to coordinate home IV antibiotics as patient has a history of ESBL UTIs associated chronic Xie catheter. Scheduled for upcoming surgery to [facility] with Dr. Jeff Physical Exam Physical Exam: Awake alert appropriate no. Apparent distress Patient is NABS soft and mild suprapubic tenderness Card exam is regular lungs are clear Results & Data Results & Data Vital Signs (Past 12 Hours) Vital Signs Temp Pulse Pulse Resp BP Pulse Ox O2 Del Method 09/06/24 08:10 97.9 F 69 20 142/85 H 94 Room Air 09/06/24 03:13 98.2 F 68 18 150/82 H 96 Room Air 09/06/24 00:15 69 09/05/24 23:11 97.7 F 80 20 164/83 H 95 Room Air Laboratory Results Reviewed CBC reviewed chemistry Personally spoke to [facility] Dr. Jeff regarding the patient's upcoming surgery PG Care Time/CCT Total # of Minutes Spent Total Time Spent with Patient: Total time spent is greater than 50% in coordination of care (as documented) at patient's floor/unit and/or counseling patient: Coding Level of Care Code 06300 SUB INP/OBS CARE 3/50MIN Diagnoses Complicated UTI (urinary tract infection) N39.0 Recurrent pulmonary embolism I26.99
[2024-09-06 11:29] VITALS: O2SAT 96
[2024-09-06] MEDS: diphenhydrAMINE Capsule 25 MG CAP PO ONE (12:01)
[2024-09-06] MEDS: ERTAPENEM 1000MG 1,000 MG/10 ML SYR IV SCH (12:03)
--- NOTE | 2024-09-06 12:42 | Infectious Disease Consult ---
Date of Consultation September 06, 2024 Assessment & Plan (1) History of ESBL E. coli infection: (2) Indwelling Xie catheter present: (3) Complicated UTI (urinary tract infection): Plan This 68-year-old male with a past medical history of BPH with urinary retention, indwelling Xie catheter, history of ESBL E. coli UTIs, pending robotic prostatectomy at [facility] 09/04/24 presents for fever and headache. His Xie catheter was exchanged about a month ago. Last week he was seen at the [facility] for pending prostatectomy. [place] to [place] and back He was advised to start nitrofurantoin 3 days prior to the procedure and to continue 4 days post given prior ESBL E. coli sensitivities. Upon return, He had a "fever" of 100 at home with a headache. His Xie catheter with sediment and hematuria. Hematuria is chronic. He thinks that his symptoms may be secondary to being on a long trip. He denies abdominal pain, back pain, change in urine habits, nausea, vomiting. In the ED,there was note of mild abdominal pain, however patient denies this. His Xie catheter works was exchanged in ED. On admission, he is afebrile, heart rate 119, blood pressure 144/82, O2 sats 96% on room air. Labs: WBC 11.92, BUN 11, creatinine 0.89, procalcitonin 0.08. RVP negative. Urinalysis: WBC> 50, RBC 3-5, no bacteria, 0-2 WBCs, yeast present. CTAP shows an enlarged prostate gland, Xie catheter within the urinary bladder and thickening of the urinary bladder which is unchanged. CXR with no infiltrate. He has a history of allergy with ertapenem. He has received in the past for ESBL E. coli in the urine and tolerated. In the ED, he received a dose of ertapenem with Benadryl which he tolerated. He is also given Diflucan. ID consulted for history of ESBL E. coli in urine. On my exam, he is comfortable and in no acute distress. He feels back to his baseline. He verifies that he does have intermittent hematuria for months. He denies abdominal pain or back pain. He denies change in urine habits. Microbiology: Blood culture 09/04 NGTD Urine culture 06/05 NGTD Antibiotics: Ertapenem 09/04ongoing Fluconazole 09/04ongoing #Possible UTI # Pyuria # Funguria # Leukocytosis, resolved # Chronic Xie catheter in setting of urine retention/BPH #History of ESBL E. coli UTI #Antibiotic allergies - Penicillin allergy: Anaphylaxis -TMP/sulfa allergy: Itchiness -Cephalexin "allergy": GI upset -Ertapenem "allergy": Sinusitis,? Tongue swelling, tolerates with Benadryl, tolerated this admission Discussion: He presents with weakness. No fever or felipe UTI symptoms. He has chronic intermittent hematuria. Unclear if his presentation represents a symptomatic UTI. He has a chronic Xie so it is expected that he would have pyuria as well as funguria. He does not have bacteriuria on UA, Urine culture is pending. He is scheduled to undergo a urologic procedure on 09/14. Given this would treat. His Xie catheter has been changed. Recommendations: Continue ertapenem 1 g IV daily. He is tolerating with Benadryl this admission Continue fluconazole for now as he is pending urologic procedure Follow-up urine culture Follow-up blood culture Thank you for this consult. ID will continue to follow Clara Bateman MD, MPH Infectious Disease [facility], [facility] Call [phone] with questions Consultation Information Consultation was provided via telemedicine using two-way real-time interactive telecommunication between the patient and the telemedicine provider. For the duration of the visit, the provider was performing the assessment from a different facility than the patient. This includesuse of bluetooth stethoscope forauscultationperformed by the telepresenter that the telemedicine provider can hear if described in the physical exam. Support Staff contact information: Please call [facility] Call Center [phone]. (Phone Number For Physician Use Only) After establishing a telemedicine visit, patient was: Patient was verified with two unique identifiers Time Spent with Patient: Initial => 75 min History of Present Illness Reason for Consultation: HO ESBL ecoli uti Requesting Physician: Arthur Roman MD Attending Physician: Arthur Roman MD History of Present Illness This 68-year-old male with a past medical history of BPH with urinary retention, indwelling Ixe catheter, history of ESBL E. coli UTIs, pending robotic prostatectomy at [facility] 09/04/24 presents for fever and headache. His Xie catheter was exchanged about a month ago. Last week he was seen at the [facility] for pending prostatectomy. [place] from [place] to [place] and back He was advised to start nitrofurantoin 3 days prior to the procedure and to continue 4 days post given prior ESBL E. coli sensitivities. Upon return, He had a "fever" of 100 at home with a headache. His Xie catheter with sediment and hematuria. Hematuria is chronic. He thinks that his symptoms may be secondary to being on a long trip. He denies abdominal pain, back pain, change in urine habits, nausea, vomiting. In the ED,there was note of mild abdominal pain, however patient denies this. His Xie catheter works was exchanged in ED. On admission, he is afebrile, heart rate 119, blood pressure 144/82, O2 sats 96% on room air. Labs: WBC 11.92, BUN 11, creatinine 0.89, procalcitonin 0.08. RVP negative. Urinalysis: WBC> 50, RBC 3-5, no bacteria, 0-2 WBCs, yeast present. CTAP shows an enlarged prostate gland, Xie catheter within the urinary bladder and thickening of the urinary bladder which is unchanged. CXR with no infiltrate. He has a history of allergy with ertapenem. He has received in the past for ESBL E. coli in the urine and tolerated. In the ED, he received a dose of ertapenem with Benadryl which he tolerated. He is also given Diflucan. ID consulted for history of ESBL E. coli in urine. On my exam, he is comfortable and in no acute distress. He feels back to his baseline. He verifies that he does have intermittent hematuria for months. He denies abdominal pain or back pain. He denies change in urine habits Allergies Allergy/AdvReac Type Severity Reaction Status Date / Time amoxicillin Allergy Severe Anaphylaxis Verified 09/04/24 22:40 ertapenem Allergy Severe Swelling Unverified 08/17/24 15:57 of tongue/sinuses Penicillins Allergy Severe Anaphylaxis Verified 09/04/24 22:40 grass pollen-perennial rye, Allergy Mild Sneezing Verified 08/17/24 15:57 standar mold Allergy Mild Sneezing Verified 08/17/24 15:57 pollen extracts Allergy Mild Sneezing Verified 08/17/24 15:57 cephalexin AdvReac Intermediate Gastrointestinal Verified 08/17/24 15:57 Upset scallops AdvReac Intermediate Diarrhea Verified 08/17/24 15:57 sulfamethoxazole AdvReac Intermediate itchiness, Verified 08/17/24 15:57 [From Bactrim] red eyes, stiff joints trimethoprim [From Bactrim] AdvReac Intermediate itchiness, Verified 08/17/24 15:57 red eyes, stiff joints Home Medications Medication Instructions Recorded Confirmed Type methylcellulose (with sugar) oral 1 tbsp PO BID 08/17/24 09/04/24 History powder (Citrucel (sucrose) oral powder) cholecalciferol (vitamin D3) 50 50 mcg PO DAILY 09/04/24 09/04/24 History mcg (2,000 unit) capsule (Vitamin D3) cyanocobalamin (vitamin B-12) 250 250 mcg PO DAILY 09/04/24 09/04/24 History mcg tablet (Vitamin B-12) diphenhydramine HCl 25 mg capsule 25 mg PO Q6 PRN Itching 09/04/24 09/04/24 History doxazosin 8 mg tablet 8 mg PO QAM 09/04/24 09/04/24 History multivitamin 1 tab PO DAILY 09/04/24 09/04/24 History rivaroxaban 20 mg tablet (Xarelto) 20 mg PO QDD 09/04/24 09/04/24 History Patient History Medical History Allergic rhinitis Pulmonary nodule Anemia (03/2024) History of urinary retention Xie catheter in place Arthritis Borderline diabetes History of COVID-19 Hx of basal cell carcinoma Hx pulmonary embolism Hx of deep venous thrombosis Gynecomastia, male BPH with obstruction/lower urinary tract symptoms Asthma Seasonal allergies Surgical History History of carpal tunnel surgery of right wrist Hx of left knee surgery H/O lumbosacral spine surgery History of cataract surgery H/O wisdom tooth extraction History of colonoscopy History of detached retina repair S/P Mohs surgery for basal cell carcinoma History of cardiac cath Family History Brother Diabetes Pancreatic cancer Sister Diabetes Nephrolithiasis Mother Hypertension Lung cancer Father Heart disease Other No family history of adverse response to anesthesia Social History Smoking Status: Never smoker Second Hand Exposure: Yes (growing up); Do You Dip or Chew Tobacco: No; Hx Alcohol Use: Yes Alcohol type: wine Alcohol Intake Frequency: Monthly or Less Hx Substance Use: No Preferred Language: Gabonese Communication Ability: Effective Visual Impairment: Limited Hearing Ability: Use of Hearing Aid Hematology Nurse Required: No Beliefs That Will Affect Care: None marital status: Current Living Situation: Family Current Living Situation Comment: son and current occupational status: employed How many Children do You have: 2 Other Information That Helps Us Care for You: No Feels Safe at Home: Yes Safety Concerns: Feels Safe At This Time Childhood Exposure to Second-Hand Smoke: Yes Diet: other and regular Diet Comment: Juicing occasionally caffeine: Yes Dental Care, Regularly: Yes Physical Activity Frequency: 3-4 Times per Week Seatbelt Use: always Sunscreen Use: Yes Assistive Devices: Glasses Review of System 10 point ROS obtained. Pertinent positives as per hpi. Physical Exam Physical Exam: NAD Anicteric sclera Supple neck Soft , not tender abdomen No CVA/ flank or suprapubic tenderness, new xie in place with small amount of clear urine No LE edema AAO times 4 Cooperative, normal mood. Results & Data Vital Signs (Past 12 Hours) Vital Signs Temp Pulse Resp BP Pulse Ox O2 Del Method 09/06/24 11:27 36.3 C L 78 17 160/86 H 96 Room Air 09/06/24 08:10 36.6 C 69 20 142/85 H 94 Room Air 09/06/24 03:13 36.8 C 68 18 150/82 H 96 Room Air Laboratory Results Laboratory Results - last 48 hr 09/04/24 09/04/24 09/04/24 22:00 22:02 22:51 WBC 11.92 H RBC 5.10 Hgb 14.5 POC Hgb Hct 42.2 POC Hct MCV 82.7 MCH 28.4 MCHC 34.4 RDW Std Deviation 47.0 H RDW Coeff of Tri 15.4 H Plt Count 213 MPV 9.9 Immature Gran % (Auto) 0.3 Neut % (Auto) 85.8 Lymph % (Auto) 7.7 [place] % (Auto) 5.7 Eos % (Auto) 0.2 Baso % (Auto) 0.3 Neut # (Auto) 10.23 H Lymph # (Auto) 0.92 L [place] # (Auto) 0.68 H Eos # (Auto) 0.02 Baso # (Auto) 0.03 Immature Gran # (Auto) 0.04 PT 10.9 INR 1.0 POC Sodium Sodium 136 POC Potassium Potassium 3.9 POC Chloride Chloride 102 Carbon Dioxide 22 POC Total CO2 Anion Gap 12 H POC Anion Gap POC BUN BUN 11 Creatinine 0.89 POC Creatinine Est Cr Clr Drug Dosing 97.2 eGFR 92.19 BUN/Creatinine Ratio 12.4 Glucose 129 H POC Glucose (other) Lactate 1.3 Calcium 9.5 POC Ioniz Calcium Shruthi Phosphorus Magnesium 1.9 Total Bilirubin 0.7 AST 29 ALT 21 Alkaline Phosphatase 53 Troponin I High Sens 22.2 H Total Protein 7.6 Albumin 4.3 Globulin 3.3 Albumin/Globulin Ratio 1.3 Lipase 27 Procalcitonin 0.08 Urine Color Yellow Urine Appearance Cloudy A Urine pH 6.5 Ur Specific Cutler 1.012 Urine Protein Negative Urine Glucose (UA) Negative Urine Ketones 1+ H Urine Blood 1+ H Urine Nitrite Negative Urine Bilirubin Negative Urine Urobilinogen Negative Ur Leukocyte Esterase 3+ H Urine WBC (Auto) >50 H Urine RBC (Auto) 3-5 H U Hyaline Cast (Auto) 11-20 H U Epithel Cells (Auto) 0-2 Urine Bacteria (Auto) None Seen Urine Yeast Present A Random Gentamicin Adenovirus (PCR) Not Detected B. pertussis DNA (PCR) Not Detected B.parapertussis DNA PCR Not Detected C. pneumoniae DNA (PCR) Not Detected Coronavirus OC43 (PCR) Not Detected Coronavirus HKU1 (PCR) Not Detected Coronavirus 229E (PCR) Not Detected SARS-CoV-2 (PCR) Not Detected Coronavirus NL63 (PCR) Not Detected Human Metapneumovir PCR Not Detected Influenza Type A (PCR) Not Detected Influenza Type B (PCR) Not Detected M. pneumoniae (PCR) Not Detected Parainfluenza 1 (PCR) Not Detected Parainfluenza 2 (PCR) Not Detected Parainfluenza 3 (PCR) Not Detected Parainfluenza 4 (PCR) Not Detected RSV (PCR) Not Detected Entero/Rhino (PCR) Not Detected 09/04/24 09/04/24 09/05/24 22:58 23:49 07:04 WBC 9.42 RBC 4.71 Hgb 13.5 L POC Hgb 13.9 L Hct 39.1 L POC Hct 41 L MCV 83.0 MCH 28.7 MCHC 34.5 RDW Std Deviation 47.2 H RDW Coeff of Tri 15.4 H Plt Count 198 MPV 10.6 Immature Gran % (Auto) 0.2 Neut % (Auto) 79.8 Lymph % (Auto) 12.6 [place] % (Auto) 6.7 Eos % (Auto) 0.5 Baso % (Auto) 0.2 Neut # (Auto) 7.51 H Lymph # (Auto) 1.19 L [place] # (Auto) 0.63 H Eos # (Auto) 0.05 Baso # (Auto) 0.02 Immature Gran # (Auto) 0.02 PT INR POC Sodium 138 Sodium 139 POC Potassium 3.5 Potassium 3.8 POC Chloride 101 Chloride 105 Carbon Dioxide 25 POC Total CO2 23 L Anion Gap 9 POC Anion Gap 19.0 POC BUN 11 BUN 9 Creatinine 0.81 POC Creatinine 0.9 Est Cr Clr Drug Dosing 98.7 eGFR 94.85 BUN/Creatinine Ratio 11.1 Glucose 120 H POC Glucose (other) 132 H Lactate Calcium 9.1 POC Ioniz Calcium Shruthi 1.13 Phosphorus 2.8 Magnesium Total Bilirubin AST ALT Alkaline Phosphatase Troponin I High Sens 22.0 H 27.5 H Total Protein Albumin 3.9 Globulin Albumin/Globulin Ratio Lipase Procalcitonin Urine Color Urine Appearance Urine pH Ur Specific Cutler Urine Protein Urine Glucose (UA) Urine Ketones Urine Blood Urine Nitrite Urine Bilirubin Urine Urobilinogen Ur Leukocyte Esterase Urine WBC (Auto) Urine RBC (Auto) U Hyaline Cast (Auto) U Epithel Cells (Auto) Urine Bacteria (Auto) Urine Yeast Random Gentamicin Adenovirus (PCR) B. pertussis DNA (PCR) B.parapertussis DNA PCR C. pneumoniae DNA (PCR) Coronavirus OC43 (PCR) Coronavirus HKU1 (PCR) Coronavirus 229E (PCR) SARS-CoV-2 (PCR) Coronavirus NL63 (PCR) Human Metapneumovir PCR Influenza Type A (PCR) Influenza Type B (PCR) M. pneumoniae (PCR) Parainfluenza 1 (PCR) Parainfluenza 2 (PCR) Parainfluenza 3 (PCR) Parainfluenza 4 (PCR) RSV (PCR) Entero/Rhino (PCR) 09/06/24 06:00 WBC 7.76 RBC 4.92 Hgb 14.1 POC Hgb Hct 41.1 L POC Hct MCV 83.5 MCH 28.7 MCHC 34.3 RDW Std Deviation 47.1 H RDW Coeff of Tri 15.4 H Plt Count 207 MPV 10.3 Immature Gran % (Auto) 0.3 Neut % (Auto) 65.2 Lymph % (Auto) 21.6 [place] % (Auto) 10.8 Eos % (Auto) 1.7 Baso % (Auto) 0.4 Neut # (Auto) 5.06 Lymph # (Auto) 1.68 [place] # (Auto) 0.84 H Eos # (Auto) 0.13 Baso # (Auto) 0.03 Immature Gran # (Auto) 0.02 PT INR POC Sodium Sodium 140 POC Potassium Potassium 4.4 POC Chloride Chloride 104 Carbon Dioxide 29 POC Total CO2 Anion Gap 7 POC Anion Gap POC BUN BUN 11 Creatinine 0.83 POC Creatinine Est Cr Clr Drug Dosing 96.3 eGFR 94.15 BUN/Creatinine Ratio 13.3 Glucose 112 H POC Glucose (other) Lactate Calcium 9.6 POC Ioniz Calcium Shruthi Phosphorus 2.8 Magnesium 2.1 Total Bilirubin AST ALT Alkaline Phosphatase Troponin I High Sens Total Protein Albumin 4.2 Globulin Albumin/Globulin Ratio Lipase Procalcitonin Urine Color Urine Appearance Urine pH Ur Specific Cutler Urine Protein Urine Glucose (UA) Urine Ketones Urine Blood Urine Nitrite Urine Bilirubin Urine Urobilinogen Ur Leukocyte Esterase Urine WBC (Auto) Urine RBC (Auto) U Hyaline Cast (Auto) U Epithel Cells (Auto) Urine Bacteria (Auto) Urine Yeast Random Gentamicin < 0.30 Adenovirus (PCR) B. pertussis DNA (PCR) B.parapertussis DNA PCR C. pneumoniae DNA (PCR) Coronavirus OC43 (PCR) Coronavirus HKU1 (PCR) Coronavirus 229E (PCR) SARS-CoV-2 (PCR) Coronavirus NL63 (PCR) Human Metapneumovir PCR Influenza Type A (PCR) Influenza Type B (PCR) M. pneumoniae (PCR) Parainfluenza 1 (PCR) Parainfluenza 2 (PCR) Parainfluenza 3 (PCR) Parainfluenza 4 (PCR) RSV (PCR) Entero/Rhino (PCR) Diagnostic Findings Microbiology 09/04/24 22:51 Urine,Straight Cath Urine Culture - Preliminary Pin-point growth present, reincubating. 09/04/24 22:16 Blood Aerobic Blood Culture - Preliminary No growth in Aerobic bottle after 24 hours. 09/04/24 22:16 Blood Anaerobic Blood Culture - Preliminary No growth in Anaerobic bottle after 24 hours. 09/04/24 22:00 Blood Aerobic Blood Culture - Preliminary No growth in Aerobic bottle after 24 hours. 09/04/24 22:00 Blood Anaerobic Blood Culture - Preliminary No growth in Anaerobic bottle after 24 hours. Chest X-Ray 09/04/24 22:02 EXAM: XR chest 1V portable CLINICAL HISTORY: FEVER. COUGH. TECHNIQUE: X-ray image of the chest is obtained in AP projection. COMPARISON: 04/10/2024 CR. FINDINGS: Pulmonary Parenchyma: Prominent perihilar bronchovascular markings. Peribronchial cuffing. Lungs are clear bilaterally. No evidence of consolidation, collapse, or focal opacities. No pulmonary nodules are identified. No evidence of pleural effusion or pleural thickening. Heart and Mediastinum: Heart size and shape are normal. No mediastinal widening or masses. No hilar or mediastinal lymphadenopathy. Bony Thorax: Degenerative changes of the visualized skeleton. Bony thorax appears intact without fractures or deformities. Soft Tissues: Soft tissues overlying the chest wall are unremarkable. IMPRESSION: 1. Redemonstration of prominent perihilar bronchovascular markings and peribronchial cuffing. Findings could be related to inflammatory or infection process. Need clinical correlation. 2. Otherwise, no significant interval changes compared to prior study dated on 04/10/2024. Electronically signed by Ana M Garcia 09-05-2024 02:13 AM Abdomen/Pelvis CT 09/04/24 22:50 Exam(s): CT ABDOMEN + PELVIS With Contrast IV Amt: 94 ml EXAM: CT Abdomen and Pelvis With Intravenous Contrast CLINICAL HISTORY: Reason for exam: abd pain, ?ESBL uti. TECHNIQUE: Axial computed tomography images of the abdomen and pelvis with intravenous contrast. Automated exposure control was utilized for the study. A dose lowering technique was utilized adhering to the principles of ALARA. CONTRAST: Patient received 94 ml of IV contrast COMPARISON: . FINDINGS: Lung bases: No consolidation. There is a small pericardial effusion. ABDOMEN: Liver: There is a 5 mm lucency noted in the right lobe of the liver.. Gallbladder and bile ducts: There is a 6 mm gallstone noted within the gallbladder.. No ductal dilation. Pancreas: . No mass. No ductal dilation. Spleen: No splenomegaly. Adrenals: No mass. Kidneys and ureters: No solid mass. No hydronephrosis. Stomach and bowel: The stomach is relatively decompressed. The colon is distended containing air and stool.. PELVIS: Appendix: Unremarkable CT scan appearance noted the appendix.. Bladder: A Xie catheter is noted within the urinary bladder. There is thickening of the urinary bladder wall.. Reproductive: The prostate gland is enlarged containing calcifications.. ABDOMEN and PELVIS: Intraperitoneal space: No free air. No significant fluid collection. Bones/joints: There are degenerative and postoperative changes in the spine.. Soft tissues: Unremarkable. Vasculature: There are atherosclerotic changes.. No abdominal aortic aneurysm. Lymph nodes: No enlarged lymph nodes. IMPRESSION: A Xie catheter is noted within the urinary bladder. There is thickening of the urinary bladder wall.. This may be due to hypertrophy. Cannot exclude cystitis. The prostate gland is enlarged containing calcifications.. Cholelithiasis. A 5 mm lucency in the right lobe of the liver may represent a cyst. Diverticulosis. Findings appears similar to previous exam Electronically signed by: Rolando Guerra MD 09/05/24 00:48 AM Shoulder X-Ray 09/05/24 00:01 EXAM: XR shoulder RT min 2V routine CLINICAL HISTORY: PAIN, INJURY 2 WEEKS AGO. TECHNIQUE: X-ray images of the right shoulder were obtained in anteroposterior (AP), lateral and Y-view projections. COMPARISON: No prior studies are available for comparison. FINDINGS: Bone Structure: Bone structure is normal and aligned. No evidence of fracture or dislocation. Humeral head is properly positioned in the glenoid fossa. No osseous lesions or abnormalities were identified. Joint Spaces: Degenerative changes of glenohumeral and acromioclavicular joints. Soft Tissues: Spots of soft tissue calcification seen superior to the humeral head likely ligamentous. IMPRESSION: 1. No evidence of acute fracture or dislocation. 2. Degenerative changes of the glenohumeral and acromioclavicular joints. Disclaimer: A subtle bone abnormality or fracture may not be readily apparent on X-rays, thus clinical correlation and further imaging including follow-up CT, MRI, or follow-up X-rays are advised as needed. Electronically signed by Ana M Garcia 09-05-2024 02:20 AM Medications Administered Home Medications Medication Instructions Recorded Confirmed Last Taken methylcellulose (with sugar) oral 1 tbsp PO BID 08/17/24 09/04/24 Unknown powder (Citrucel (sucrose) oral powder) cholecalciferol (vitamin D3) 50 50 mcg PO DAILY 09/04/24 09/04/24 Unknown mcg (2,000 unit) capsule (Vitamin D3) cyanocobalamin (vitamin B-12) 250 250 mcg PO DAILY 09/04/24 09/04/24 Unknown mcg tablet (Vitamin B-12) diphenhydramine HCl 25 mg capsule 25 mg PO Q6 PRN Itching 09/04/24 09/04/24 Unknown doxazosin 8 mg tablet 8 mg PO QAM 09/04/24 09/04/24 Unknown multivitamin 1 tab PO DAILY 09/04/24 09/04/24 Unknown rivaroxaban 20 mg tablet (Xarelto) 20 mg PO QDD 09/04/24 09/04/24 Unknown Active Medications Generic Name Dose Route Start Last Admin Trade Name Freq PRN Reason Stop Dose Admin Acetaminophen 650 mg 09/05/24 03:17 09/05/24 19:31 Acetaminophen 325 Mg Tab PO 10/05/24 03:16 650 mg Q4H PRN Administration Pain or Fever Cyanocobalamin 250 mcg 09/05/24 09:00 09/06/24 08:25 Cyanocobalamin (B-12) 500 Mcg Tablet PO 10/05/24 08:59 250 mcg DAILY MAL Administration Doxazosin Mesylate 4 mg 09/05/24 21:00 09/05/24 19:31 Doxazosin Mesylate 4 Mg Tab PO 10/05/24 20:59 4 mg HS MAL Administration Fluconazole 200 mg in 100 mls @ 100 mls/hr 09/05/24 04:00 09/06/24 12:02 Diflucan IV 09/15/24 03:59 Not Given DAILY MAL Ertapenem 1,000 mg in 10 mls @ 2 mls/min 09/06/24 11:30 09/06/24 12:03 Invanz 1000mg IV 09/16/24 11:29 2 mls/min Q24H MAL Administration Methylcellulose 1 gm 09/05/24 09:00 09/06/24 08:26 Methylcellulose Powder 454 Gm Jar PO 10/05/24 08:59 1 gm BID MAL Administration Multivitamins 1 tab 09/05/24 09:00 09/06/24 08:24 Multivitamin Tab PO 10/05/24 08:59 1 tab DAILY MAL Administration Rivaroxaban 20 mg 09/05/24 16:30 09/05/24 17:19 Rivaroxaban 20 Mg Tab PO 10/05/24 16:29 20 mg QDD MAL Administration Vitamin D 50 mcg 09/05/24 09:00 09/06/24 08:24 Cholecalciferol 25 Mcg (1000 Units) Tab PO 10/05/24 08:59 50 mcg DAILY MAL Administration
[2024-09-06 15:08] VITALS: PULSE 72; RESP 16; TEMP 98.1
[2024-09-06 18:42] VITALS: BP 160/76
[2024-09-07] MEDS ORDERED: diphenhydrAMINE Capsule 25 MG CAP PO SCH (11:00)
--- NOTE | 2024-09-07 12:08 | Discharge Summary ---
Discharge Summary Date of Service September 06, 2024 Principal Dx & Hospital Course #1 = Principal Diagnosis (1) Complicated UTI (urinary tract infection): BPH, associated with chronic indwelling xie ESBL in the past. 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 coli scheduled for robotic prostatectomy September 14 at the [facility]. Presents with early sepsis complicated UTI -Follow urine culture and sensitivity. Great resolution of symptoms status post antibiotics and catheter exchange Patient did receive ertapenem 1 g IV from the ED, (listed allergy to same) was given Benadryl to blunt mild systemic reaction patient is agreeable to continuing with ertapenem pretreated with Benadryl 50, will need to arrange ultrasound-guided catheter and IV antibiotics to carry him through his upcoming procedure Xie catheter was changed in the ED on presentation History of multiple positive urine cultures on 04/10, 05/04,05/24, 06/12, 07/04, and 07/07/2024 Patient had preoperative testing at [facility] 09/04, and plans are for a robotic prostatectomy on 09/14/2024 I personally did contact [facility], and spoke to his urologist to coordinate ongoing care there is report of continuing IV antibiotics until the upcoming procedure continue doxazosin 4 mg now, [facility] did not feel it would be warranted to continue antifungal treatment although this was recommended by infectious disease consultation 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 X-ray shows mild degeneration, with no signs of fracture or Admission HPI Per Admitting Provider The patient is a 68-year-old male with a past medical history including chronic indwelling Xie catheter, BPH with LUTS, hypertension, complicated UTI with ESBL E. coli, cardiomegaly, B12 deficiency, on chronic anticoagulation for residual left lower extremity DVT, and recurrent pulmonary embolism. He pre sents to the emergency department with symptoms as noted above. He presented to the ED this evening, with report that he had developed a persistent temperature between 100-101 over the past several hours. Discharge Exam please see progress note for PE from 09/06/24 Discharge Plan Discharge Items Patient Disposition: Home - Self-Care Reason For Visit: SEPSIS DUE TO ESBL E COLI UTI, PROSTATITIS, CYSTIT Discharge Diagnosis: Concern for early sepsis resolved Urinary tract infection associate with chronic Xie catheter Elevated troponin felt to be demand ischemia Activity: Resume your previous activity Non-emergency contact: Primary Care Provider, Specialist and Urologist Call non-emergency contact if: your symptoms worsen Follow-up/Referrals: Kerwin Ortiz MD [Primary Care Provider] - Diet: Regular Addtl Attending Provider Instructions: After speaking with [facility] urology, decision to continue antibiotics until they see you for your planned robotic procedure at the end of the year. Ultrasound-guided peripheral catheter was placed and hopefully ertapenem will be administered 1 g every 24 hours pretreated with Benadryl 50 mg until time of surgery or further recommendations by your urologist. Currently her urine culture obtained on the is pinpoint growth and it is being read incubated. If an alternative bacteria is grown that requires antibiotic amendment will will call you Certainly follow recommendations from urology at [facility] regarding her anticoagulation and the time spent with which to hold it prior to procedure Pending Studies at Discharge: Yes Studies:: Blood and urine cultures Stand-Alone Forms: My [facility] [employer], Smoking Cessation Medications and DC Order Prescriptions: New ertapenem 1 gram recon soln 1 g IV DAILY Qty: 7 0RF Continued Citrucel (sucrose) Powder 1 tbsp PO BID doxazosin 8 mg tablet 8 mg PO QAM Xarelto 20 mg tablet 20 mg PO QDD Rx Instructions: must administer with evening meal diphenhydramine HCl 25 mg Capsule 25 mg PO Q6 PRN (Reason: Itching) cyanocobalamin (vitamin B-12) [Vitamin B-12] 250 mcg Tablet 250 mcg PO DAILY cholecalciferol (vitamin D3) [Vitamin D3] 50 mcg (2,000 unit) Capsule 50 mcg PO DAILY multivitamin Tablet 1 tab PO DAILY No Action acetaminophen [Tylenol] 325 mg Capsule 325 mg PRN (Reason: Mild Pain (Scale Score 1-4)) Discharge Orders: Discharge Order (Routine); Ordered 09/07/24 Ordered By: Arthur Roman Admission Data Admit Date/Time: 09/05/24 01:42 Attending Provider: Arthur Roman Admit Provider: Rodney Werner Primary Care Provider: Kerwin Ortiz Other Providers: Rodney Werner; Nallely Castillo; Estelita Dubois; Kayy Marrufo; Clara Bateman; Mary Durant; Radha Jensen Other Interventions: Discharge Summary Assessment (RN) Last Done: 09/06/24 18:40 Hospital Stay Data Consultations 09/05/24 01:27 ED Decision to Admit Stat 09/05/24 07:53 Consult Infectious Diseases Routine Diagnostic Imagining Performed 09/04/24 22:50 CT abd pelvis IV con only Stat 09/06/24 11:04 US guide vascular access Routine Pending Results Patient Have Any Pending Studies at Discharge: Yes Discharge Instructions Given to Patient (Per Discharging Provider) After speaking with [facility] urology, decision to continue antibiotics until they see you for your planned robotic procedure at the end of the year. Ultrasound-guided peripheral catheter was placed and hopefully ertapenem will be administered 1 g every 24 hours pretreated with Benadryl 50 mg until time of surgery or further recommendations by your urologist. Currently her urine culture obtained on the is pinpoint growth and it is being read incubated. If an alternative bacteria is grown that requires antibiotic amendment will will call you Certainly follow recommendations from urology at [facility] regarding her anticoagulation and the time spent with which to hold it prior to procedure Total Time Total Time Spent Total Time Spent (In Minutes): greater than 30 minutes were required for patient care and discharge this day Coding Level of Care Code 31211 INP/OBS DISCH >30 MIN Diagnoses Complicated UTI (urinary tract infection) N39.0 Recurrent pulmonary embolism I26.99
--- NOTE | 2024-09-13 08:01 | Coding Query ---
CODING QUERY To promote full compliance with coding requirements relating to patient care, provider participation is requested in all cases of materials mgmt tech uncertainty. Please assist us with the question(s) below: Coding Question(s): There is documentation of Complicated UTI with documentation, as on Discharge Summary, of, "Urinary tract infection associate with chronic Lawson catheter". Please specify below, in your clinical opinion, to determine if the Complicated UTI was possibly due to the chronic Lawson catheter, or not: (xxx ) Complicated UTI, possibly due to the chronic Lawson catheter ( ) Complicated UTI, Not due to the chronic Lawson catheter ( ) Complicated UTI, due to Other: Please Specify Physician's Response(s): Thank you Mame Presley Principal Diagnosis: "that condition established after study, to be chiefly responsible for occasioning the admission of the patient to the hospital for care." Co-Existing Principal Diagnosis: "when two or more diagnoses equally meet the criteria for principal diagnosis as determined by the circumstances of admission, diagnostic work up, and/or therapy provided, and the Alphabetic Index, Tabular List, or another coding guideline does not provide sequencing direction, any one of the diagnoses may be sequenced first." "When the physician has documented what appears to be a current diagnosis in the body of the record, but has not included the diagnosis in the final diagnostic statement, the physician should be asked whether the diagnosis should be added." (Source Coding Clinic 2 QTR90. p3-4) CECILE
--- NOTE | 2024-09-13 08:04 | Coding Query ---
CODING QUERY To promote full compliance with coding requirements relating to patient care, provider participation is requested in all cases of furnace erector uncertainty. Please assist us with the question(s) below: Coding Question(s): There is documentation through the record of , "Recurrent pulmonary embolism".Please specify below, in your clinical opinion, regarding the recurrent Pulmonary embolism treated during this admission: ( ) recurrent Pulmonary Embolism treated during this admission is likely Acute Pulmonary Embolism (xxx ) recurrent Pulmonary Embolism treated during this admission is likely Chronic Pulmonary Embolism ( ) Other: Please Specify Physician's Response(s): Thank you Mame Presley Principal Diagnosis: "that condition established after study, to be chiefly responsible for occasioning the admission of the patient to the hospital for care." Co-Existing Principal Diagnosis: "when two or more diagnoses equally meet the criteria for principal diagnosis as determined by the circumstances of admission, diagnostic work up, and/or therapy provided, and the Alphabetic Index, Tabular List, or another coding guideline does not provide sequencing direction, any one of the diagnoses may be sequenced first." "When the physician has documented what appears to be a current diagnosis in the body of the record, but has not included the diagnosis in the final diagnostic statement, the physician should be asked whether the diagnosis should be added." (Source Coding Clinic 2 QTR90. p3-4) CECILE
== END 2024-09-06 19:36 | disposition home or self-care (01) | DRG 698 ==
LOC: ED 21:25 → SUATTDRO 09-05 01:42 → 2S 09-05 01:42
DX: T83.511A Infection and inflammatory reaction due to indwelling urethral catheter, initial encounter; Z79.899 Other long term (current) drug therapy; Z88.0 Allergy status to penicillin; M25.511 Pain in right shoulder; Z96.0 Presence of urogenital implants; E53.8 Deficiency of other specified B group vitamins; Z88.1 Allergy status to other antibiotic agents; J45.909 Unspecified asthma, uncomplicated; I27.82 Chronic pulmonary embolism; Z82.49 Family history of ischemic heart disease and other diseases of the circulatory system; Z86.711 Personal history of pulmonary embolism; A41.51 Sepsis due to Escherichia coli [E. coli]; B37.49 Other urogenital candidiasis; Z88.2 Allergy status to sulfonamides; Z91.013 Allergy to seafood; Z86.718 Personal history of other venous thrombosis and embolism; R33.8 Other retention of urine; N39.0 Urinary tract infection, site not specified; Z91.048 Other nonmedicinal substance allergy status; I82.502 Chronic embolism and thrombosis of unspecified deep veins of left lower extremity; I24.89 Other forms of acute ischemic heart disease; Y84.6 Urinary catheterization as the cause of abnormal reaction of the patient, or of later complication, without mention of misadventure at the time of the procedure; I10 Essential (primary) hypertension; Z87.440 Personal history of urinary (tract) infections; N40.1 Benign prostatic hyperplasia with lower urinary tract symptoms; Z79.01 Long term (current) use of anticoagulants